=== PATIENT | male | born 1965 | race Caucasian/White ===

== ENCOUNTER 2017-10-16 13:04 | Emergency (ER) | payer MEDICAID ==
[2017-10-16] MEDS ORDERED: Lactated Ringers 1,000 ML IV ONE (14:15)
--- NOTE | 2017-10-16 14:21 | EDM.PDOC ---
ED HPI GENERAL MEDICAL PROBLEM - General Chief Complaint: Abdominal Pain Stated Complaint: LEFT LOWER ABDOMINAL PAIN Time Seen by Provider: 10/16/17 14:05 Source of Information: Reports: Patient, Old Records History Limitations: Reports: No Limitations - History of Present Illness INITIAL COMMENTS - FREE TEXT/NARRATIVE: 52 yo male with a pHx of heavy ETOH abuse and pancreatitis presents with LLQ abdominal pain that is not responding to antibiotics prescribed in the clinic last week for presumed diverticulitis. Reports nearly 50# weight loss in the last approx 1 year even though he his eating at least as much as before. Has not had a fever. No recent scanning of his abdomen. No fever, vomiting, or diarrhea. Hurts to extend the L leg. Onset: Gradual Onset Date: 10/08/17 Duration: Day(s):, Getting Worse Location: Reports: Abdomen (LLQ) Quality: Reports: Ache Severity: Moderate Improves with: Reports: Rest Worsens with: Reports: Movement (desmond of the L leg) Context: Reports: Other (on ATB's for presumed diverticulitis) Associated Symptoms: Reports: Other (Dizzy if he gets up too fast. ? fevers at night only.). Denies: Chest Pain, Cough, Diaphoresis, Fever/Chills, Rash, Shortness of Breath Treatments [employer]: Reports: Other (see below) (On antibiotics from the clinic.) Left Abdomen Pain Score (Numeric/FACES): 4 - Related Data Allergies Allergy/AdvReac Type Severity Reaction Status Date / Time oxycodone Allergy Hives Verified 10/16/17 13:32 Home Meds: Home Meds Pantoprazole [ProTONIX] 40 mg PO DAILY #30 tab.cr 10/20/16 [Rx] Ciprofloxacin HCl [Cipro] 500 mg PO BID 10/16/17 [History] metroNIDAZOLE [Flagyl] 500 mg PO TID 10/16/17 [History] Past Medical History Other HEENT History: c/o sinus issues Other Respiratory History: recent stop smoking no patches on Gastrointestinal History: Reports: GERD, Pancreatitis Other Gastrointestinal History: hx of ulcer, "COLON INFECTION" Other Psychiatric History: etoh abuse Other Dermatologic History: cyst recent R eye - Past Surgical History GI Surgical History: Reports: None Social & Family History - Tobacco Use Smoking Status *Q: Unknown Ever Smoked Years of Tobacco use: 35 Packs/Tins Daily: 1.5 Used Tobacco, but Quit: No Month Tobacco Last Used: 0 Second Hand Smoke Exposure: Yes - Caffeine Use Caffeine Use: Reports: None - Alcohol Use Days Per Week of Alcohol Use: 7 Number of Drinks Per Day: 8 Total Drinks Per Week: 56 - Recreational Drug Use Recreational Drug Use: Yes Drug Use in Last 12 Months: Yes Recreational Drug Type: Reports: Marijuana/Hashish Recreational Drug Use Frequency: Weekly Recreational Drug Last Use: 2 weeks - Living Situation & Occupation Living situation: Reports: , Alone Occupation: Unemployed ED ROS GENERAL - Review of Systems Review Of Systems: See Below Constitutional: Reports: Fever (? nocturnal fevers.). Denies: Diaphoresis, Decreased Appetite HEENT: Reports: No Symptoms Respiratory: Reports: No Symptoms Cardiovascular: Reports: Lightheadedness (with standing up quickly) Endocrine: Reports: Other (weight loss) GI/Abdominal: Reports: Abdominal Pain (LLQ). Denies: Black Stool, Bloody Stool , Constipation, Diarrhea, Decreased Appetite, Distension, Flatus, Hematemesis, Hematochezia, Melena, Nausea, Stool Incontinence, Vomiting : Reports: No Symptoms Musculoskeletal: Reports: No Symptoms Skin: Reports: No Symptoms Neurological: Reports: No Symptoms Psychiatric: Reports: No Symptoms ED EXAM, GI/ABD - Physical Exam Exam: See Below Exam Limited By: No Limitations General Appearance: Alert, WD/WN, No Apparent Distress Eyes: Bilateral: Normal Appearance, EOMI Ears: Normal External Exam, Normal Canal, Hearing Grossly Normal, Normal TMs Nose: Normal Inspection, Normal Mucosa, No Blood Throat/Mouth: Normal Inspection, Normal Lips, Normal Teeth Head: Atraumatic, Normocephalic Neck: Normal Inspection, Supple, Non-Tender Respiratory/Chest: No Respiratory Distress, Lungs Clear, Normal Breath Sounds, No Accessory Muscle Use Cardiovascular: Regular Rate, Rhythm, No Edema GI/Abdominal Exam: Soft, No Distention, Rebound (mild), Tender (LLQ), Abnormal Bowel Sounds (increased). No: Guarding Back Exam: Normal Inspection. No: CVA Tenderness (R), CVA Tenderness (L) Extremities: Normal Inspection, Normal Range of Motion, Non-Tender, No Pedal Edema Neurological: Alert, Oriented, CN II-XII Intact, Normal Cognition, No Motor/ Sensory Deficits Psychiatric: Normal Affect, Normal Mood Skin Exam: Warm, Dry, Intact, Normal Color, No Rash Lymphatic: No Adenopathy Course - Vital Signs Last Recorded V/S: Last Vital Signs Temp 36.2 C 10/16/17 13:22 Pulse 119 H 10/16/17 13:22 Resp 15 10/16/17 13:22 BP 124/86 10/16/17 13:22 Pulse Ox 100 10/16/17 13:22 - Orders/Labs/Meds Orders: Active Orders 24 hr Category Date Time Status Iopamidol [Isovue-300 (61%)] Med 10/16/17 14:31 Active 86 ml IV . DIRECTED PRN Lactated Ringers [Ringers, Lactated] 1,000 ml Med 10/16/17 14:15 Active IV BOLUS Sodium Chloride 0.9% [Normal Saline] 70 ml Med 10/16/17 14:45 Active IV ASDIRECTED Medication Orders Lactated Ringer's (Ringers, Lactated) 1,000 mls @ 1,000 mls/hr IV BOLUS ONE Stop: 10/16/17 15:14 Last Admin: 10/16/17 14:32 Dose: 1,000 mls/hr Sodium Chloride (Normal Saline) 70 mls @ 3 mls/sec IV ASDIRECTED JODIE Stop: 10/16/17 23:00 Last Admin: 10/16/17 14:41 Dose: 3 mls/sec Iopamidol (Isovue-300 (61%)) 86 ml IV . DIRECTED PRN PRN Reason: RADIOLOGY EXAM Stop: 10/17/17 14:32 Last Admin: 10/16/17 14:41 Dose: 86 ml Labs: Laboratory Tests 10/16/17 10/16/17 Range/Units 14:15 14:31 Sodium 136 L (140-148) mmol/L Potassium 3.3 L (3.6-5.2) mmol/L Chloride 99 L (100-108) mmol/L Carbon Dioxide 25 (21-32) mmol/L Anion Gap 15.3 H (5.0-14.0) mmol/L BUN 9 D (7-18) mg/dL Creatinine 0.7 L (0.8-1.3) mg/dL Est Cr Clr Drug Dosing 101.25 mL/min Estimated GFR (MDRD) > 60 (>60) Glucose 102 (74-106) mg/dL Lactic Acid 1.2 (0.4-2.0) mmol/L Calcium 9.0 (8.5-10.1) mg/dL Meds: Medications Generic Name Dose Route Start Last Admin Trade Name Fatmata PRN Reason Stop Dose Admin Lactated Ringer's 1,000 mls @ 1,000 mls/hr 10/16/17 14:15 10/16/17 14:32 Ringers, Lactated IV 10/16/17 15:14 1,000 mls/hr BOLUS ONE Administration Sodium Chloride 70 mls @ 3 mls/sec 10/16/17 14:45 10/16/17 14:41 Normal Saline IV 10/16/17 23:00 3 mls/sec ASDIRECTED JODIE Administration Iopamidol 86 ml 10/16/17 14:31 10/16/17 14:41 Isovue-300 (61%) IV 10/17/17 14:32 86 ml . DIRECTED PRN Administration RADIOLOGY EXAM - Radiology Interpretation Free Text/Narrative:: Abd/pelvis CT with contrast-loculated fluid collections L abdomen, pseudocysts vs abscesses. Some hydronephrosis. Largest measures 10 x [address] Results Date: 10/16/17 CT Results Time: 14:55 Departure - Departure Time of Disposition: 15:30 Disposition: Home, Self-Care 01 Condition: Fair Clinical Impression: Intra-abdominal abscess - Discharge Information Referrals: Jake Auguste PA-C [Primary Care Provider] - Forms: ED Department Discharge - My Orders Last 24 Hours: My Active Orders 10/16/17 14:15 Lactated Ringers [Ringers, Lactated] 1,000 ml IV BOLUS 10/16/17 14:31 Iopamidol [Isovue-300 (61%)] 86 ml IV . DIRECTED PRN 10/16/17 14:45 Sodium Chloride 0.9% [Normal Saline] 70 ml IV ASDIRECTED - Assessment/Plan Last 24 Hours: My Active Orders 10/16/17 14:15 Lactated Ringers [Ringers, Lactated] 1,000 ml IV BOLUS 10/16/17 14:31 Iopamidol [Isovue-300 (61%)] 86 ml IV . DIRECTED PRN 10/16/17 14:45 Sodium Chloride 0.9% [Normal Saline] 70 ml IV ASDIRECTED
[2017-10-16] MEDS ORDERED: Iopamidol 612 MG/ML 100 ML Bottle IV PRN (14:31)
--- NOTE | 2017-10-16 15:01 | CT ---
Abdomen pelvis CT. History: Left lower quadrant pain. Abdominal pain weight loss. Technique: IV and oral contrast were administered followed by axial imaging from the lung bases exten ding through the abdomen and pelvis. Coronal images were reconstructed. Total DLP: 329. Comparison: 17 October 2016. Findings: The patient has a history of pancreatitis. There are several loculated fluid collections in the left flank. The left kidney is displaced slightly anterior by the fluid collection. The largest collection measures approximately 10.0 x 4.9 x 3[address] exam demonstrated findings sugges tive of pancreatitis with induration of the fat on the left side. The fluid collections may reflect p seudocysts. Abscess formation not excluded. Limited evaluation of the lower lung fairchild demonstrates no acute findings. The liver, bladder, spleen are unremarkable. There is no large or small bowel distention. There is no free air. The kidneys are demonstrate excretion of contrast bilaterally. There is mild prominence of the left renal collecting system. The finding is concerning for mild left hydronephrosis. The inflam matory process may be compromising the proximal left ureter. There are no skeletal lesions. Impression: 1. Several loculated fluid collections in the left flank with anterior displacement of the left kidne y. There is evidence of mild hydronephrosis on the left. The proximal one third of the left ureter ma y be partially obstructed due to the organized fluid collections. The fluid collections may reflect p seudocyst formation from chronic pancreatitis. Abscesses of the left flank should also be considered. Clinical correlation recommended.
[2017-10-16 15:19] VITALS: BP 133/78
[2017-10-16] MEDS ORDERED: Lactated Ringers 1,000 ML IV SCH (16:00)
== END 2017-10-16 16:09 | disposition home or self-care (01) ==
LOC: JP.ED 13:04
DX: K65.1 Peritoneal abscess (principal); Z79.899 Other long term (current) drug therapy; Z88.6 Allergy status to analgesic agent
CPT/HCPCS: 36415; 74177; 80048; 83605; 96360; 99284; J7030; J7120; Q9967

== ENCOUNTER 2018-06-07 15:23 | Emergency (ER) | payer MEDICAID ==
[2018-06-07] MEDS ORDERED: Aspirin 81 MG Tab.Chew PO ONE (15:33)
[2018-06-07] MEDS ORDERED: Sodium Chloride 0.9% 10 ML Syringe FLUSH PRN (15:33)
--- NOTE | 2018-06-07 15:39 | EDM.PDOC ---
ED HPI GENERAL MEDICAL PROBLEM - General Chief Complaint: Cardiovascular Problem Stated Complaint: MED[facility] Time Seen by Provider: 06/07/18 15:32 Source of Information: Reports: Patient, EMS, RN Notes Reviewed History Limitations: Reports: No Limitations - History of Present Illness INITIAL COMMENTS - FREE TEXT/NARRATIVE: 53-year-old gentleman presents to emergency department today via EMS services for a syncopal event, states he did have severe pain back of his head yesterday lasted a couple minutes he does have a known history of alcohol abuse and dependence. Was at the liquor store today had lifted a 30 pack after doing this suddenly felt lightheaded staff at the store had him sit down EMS services were called. Upon arrival by EMS services found him very diaphoretic difficult to obtain blood pressure a systolic reading of 50, initial EKG does show concern for ST changes in leads 2 and 3 however he denied any chest pain or shortness of breath, nausea or vomiting. Upon arrival to the emergency department blood pressure had stabilized he was tachycardic but remained asymptomatic denies any chest pain Treatments [employer]: Reports: EKG - Related Data Allergies Allergy/AdvReac Type Severity Reaction Status Date / Time oxycodone Allergy Hives Verified 06/07/18 15:38 Home Meds: Home Meds Pantoprazole [ProTONIX] 40 mg PO DAILY #30 tab.cr 10/20/16 [Rx] Albuterol [Ventolin HFA] 2 puff INH BID 06/07/18 [History] Ibuprofen 400 mg PO DAILY 06/07/18 [History] Tamsulosin [Tamsulosin 24 Hr] 0.4 mg PO DAILY 06/07/18 [History] Past Medical History Other HEENT History: c/o sinus issues Other Respiratory History: recent stop smoking no patches on Gastrointestinal History: Reports: GERD, Pancreatitis Other Gastrointestinal History: hx of ulcer, "COLON INFECTION" Psychiatric History: Reports: Addiction Other Psychiatric History: etoh abuse Other Dermatologic History: cyst recent R eye - Past Surgical History GI Surgical History: Reports: None Social & Family History - Tobacco Use Smoking Status *Q: Former Smoker - Caffeine Use Caffeine Use: Reports: None - Living Situation & Occupation Living situation: Reports: , Alone Occupation: Unemployed ED ROS GENERAL - Review of Systems Review Of Systems: See Below Constitutional: Reports: No Symptoms HEENT: Reports: No Symptoms Respiratory: Reports: No Symptoms Cardiovascular: Reports: Lightheadedness, Syncope GI/Abdominal: Reports: No Symptoms : Reports: No Symptoms Musculoskeletal: Reports: No Symptoms Skin: Reports: No Symptoms Neurological: Reports: Syncope ED EXAM, GENERAL - Physical Exam Exam: See Below Free Text/Narrative:: General: Male, not in any distress, alert and oriented x3 HEENT: head is atraumatic normocephalic, eyes pupils equal round reactive to light, sclera clear no conjunctivitis appreciated. Ears tympanic membranes clear and ocampo landmarks and light reflex are present bilaterally canals are clear. Nose no septal deviation, nares are clear, no blood present. Mouth mucosa is moist and pink no erythema or exudate noted in soft palate, tongue is midline uvula is midline, dentition is poor. Neck: Supple no thyromegaly no tracheal deviation. Nodes: Cervical nodes subclavicular nodes nontender no palpable lymphadenopathy noted. Lungs: clear to auscultation bilaterally with symmetrical respirations, no adventitious noise appreciated. CV: Tachycardic rate and rhythm S1 and S2 appreciated no murmurs rubs or gallops noted. Abdomen: Soft, nontender, no palpable masses or organomegaly appreciated, no distention no guarding bowel sounds are present, . Neuro: Cranial nerves II through XII grossly intact Skin: Warm and dry, intact Extremities: No lower extremity edema appreciated, Course - Vital Signs Last Recorded V/S: Last Vital Signs Temp 97.2 F 06/07/18 15:24 Pulse 109 H 06/07/18 16:50 Resp 18 06/07/18 16:50 BP 110/69 06/07/18 16:50 Pulse Ox 99 06/07/18 16:50 - Orders/Labs/Meds Orders: Active Orders 24 hr Category Date Time Status Cardiac Monitoring [RC] .As Directed Care 06/07/18 15:33 Active EKG Documentation Completion [RC] ASDIRECTED Care 06/07/18 15:34 Active Peripheral IV Care [RC] . DIRECTED Care 06/07/18 15:33 Active Head wo Cont [CT] Stat Exams 06/07/18 15:35 Taken Lactated Ringers [Ringers, Lactated] 1,000 ml Med 06/07/18 15:45 Active IV .BOLUS Sodium Chloride 0.9% [Saline Flush] Med 07/20/18 15:33 Active 10 ml FLUSH ASDIRECTED PRN Peripheral IV Insertion Adult [OM.PC] Stat Oth 06/07/18 15:33 Ordered EKG 12 Lead [EK] Stat Ther 06/07/18 15:34 Ordered Medication Orders Lactated Ringer's (Ringers, Lactated) 1,000 mls @ 999 mls/hr IV .BOLUS JODIE Last Admin: 06/07/18 16:00 Dose: 999 mls/hr Sodium Chloride (Saline Flush) 10 ml FLUSH ASDIRECTED PRN PRN Reason: Keep Vein Open Labs: Laboratory Tests 06/07/18 06/07/18 06/07/18 Range/Units 15:33 15:33 15:33 WBC 10.3 (4.5-11.0) K/uL RBC 4.45 (4.30-5.90) M/uL Hgb 14.7 D (12.0-15.0) g/dL Hct 40.8 (40.0-54.0) % MCV 92 (80-98) fL MCH 33 H (27-31) pg MCHC 36 (32-36) % Plt Count 213 (150-400) K/uL Neut % (Auto) 63 (36-66) % Lymph % (Auto) 24 (24-44) % [place] % (Auto) 12 H (2-6) % Eos % (Auto) 0 L (2-4) % Baso % (Auto) 0 (0-1) % D-Dimer, Quantitative 134 (0.0-400.0) ng/mL Sodium 133 L (140-148) mmol/L Potassium 3.2 L (3.6-5.2) mmol/L Chloride 96 L (100-108) mmol/L Carbon Dioxide 20 L (21-32) mmol/L Anion Gap 20.2 H (5.0-14.0) mmol/L BUN 15 D (7-18) mg/dL Creatinine 1.2 D (0.8-1.3) mg/dL Est Cr Clr Drug Dosing 60.74 mL/min Estimated GFR (MDRD) > 60 (>60) Glucose 177 H (74-106) mg/dL Calcium 9.3 (8.5-10.1) mg/dL Total Bilirubin 1.0 D (0.2-1.0) mg/dL AST 31 D (15-37) U/L ALT 34 D (12-78) U/L Alkaline Phosphatase 114 (46-116) U/L CK-MB (CK-2) 1.6 (0-3.6) mg/mL Troponin I < 0.017 (0.000-0.056) ng/mL Total Protein 7.7 (6.4-8.2) g/dL Albumin 4.1 (3.4-5.0) g/dL Globulin 3.6 H (2.3-3.5) g/dL Albumin/Globulin Ratio 1.1 L (1.2-2.2) Ethyl Alcohol mg/dL 06/07/18 Range/Units 15:33 WBC (4.5-11.0) K/uL RBC (4.30-5.90) M/uL Hgb (12.0-15.0) g/dL Hct (40.0-54.0) % MCV (80-98) fL MCH (27-31) pg MCHC (32-36) % Plt Count (150-400) K/uL Neut % (Auto) (36-66) % Lymph % (Auto) (24-44) % [place] % (Auto) (2-6) % Eos % (Auto) (2-4) % Baso % (Auto) (0-1) % D-Dimer, Quantitative (0.0-400.0) ng/mL Sodium (140-148) mmol/L Potassium (3.6-5.2) mmol/L Chloride (100-108) mmol/L Carbon Dioxide (21-32) mmol/L Anion Gap (5.0-14.0) mmol/L BUN (7-18) mg/dL Creatinine (0.8-1.3) mg/dL Est Cr Clr Drug Dosing mL/min Estimated GFR (MDRD) (>60) Glucose (74-106) mg/dL Calcium (8.5-10.1) mg/dL Total Bilirubin (0.2-1.0) mg/dL AST (15-37) U/L ALT (12-78) U/L Alkaline Phosphatase (46-116) U/L CK-MB (CK-2) (0-3.6) mg/mL Troponin I (0.000-0.056) ng/mL Total Protein (6.4-8.2) g/dL Albumin (3.4-5.0) g/dL Globulin (2.3-3.5) g/dL Albumin/Globulin Ratio (1.2-2.2) Ethyl Alcohol < 3 mg/dL Meds: Medications Generic Name Dose Route Start Last Admin Trade Name Freq PRN Reason Stop Dose Admin Lactated Ringer's 1,000 mls @ 999 mls/hr 06/07/18 15:45 06/07/18 16:00 Ringers, Lactated IV 999 mls/hr .BOLUS JODIE Administration Sodium Chloride 10 ml 06/07/18 15:33 Saline Flush FLUSH ASDIRECTED PRN Keep Vein Open Discontinued Medications Generic Name Dose Route Start Last Admin Trade Name Freq PRN Reason Stop Dose Admin Aspirin 324 mg 06/07/18 15:33 06/07/18 15:56 Aspirin PO 06/07/18 15:34 324 mg ONETIME ONE Administration Departure - Departure Time of Disposition: 17:13 Disposition: Home, Self-Care 01 Condition: Good Clinical Impression: Syncope, near Referrals: PCP,None [Primary Care Provider] - Forms: ED Department Discharge Additional Instructions: Please followup with your primary care provider in 3-5 days if not better, please call return to the emergency department with worsening of symptoms. - My Orders Last 24 Hours: My Active Orders 06/07/18 15:33 Cardiac Monitoring [RC] .As Directed Peripheral IV Care [RC] . DIRECTED Sodium Chloride 0.9% [Saline Flush] 10 ml FLUSH ASDIRECTED PRN Peripheral IV Insertion Adult [OM.PC] Stat 06/07/18 15:34 EKG Documentation Completion [RC] ASDIRECTED EKG 12 Lead [EK] Stat 06/07/18 15:35 Head wo Cont [CT] Stat 06/07/18 15:45 Lactated Ringers [Ringers, Lactated] 1,000 ml IV .BOLUS - Assessment/Plan Last 24 Hours: My Active Orders 06/07/18 15:33 Cardiac Monitoring [RC] .As Directed Peripheral IV Care [RC] . DIRECTED Sodium Chloride 0.9% [Saline Flush] 10 ml FLUSH ASDIRECTED PRN Peripheral IV Insertion Adult [OM.PC] Stat 06/07/18 15:34 EKG Documentation Completion [RC] ASDIRECTED EKG 12 Lead [EK] Stat 06/07/18 15:35 Head wo Cont [CT] Stat 06/07/18 15:45 Lactated Ringers [Ringers, Lactated] 1,000 ml IV .BOLUS Plan: Assessment Acuity = acute Site and laterality = syncopal event complicated in a gentleman known history of alcohol abuse and dependence Etiology = probably vasovagal Manifestations = none Location of injury = Home Lab values = CBC unremarkable, potassium low at 3.2 consistent hypokalemia, d- dimer is negative, troponin CK-MB both negative EKG demonstrates a sinus rhythm he does have Q waves in lead [address] changes in 2 however this is similar to EKG in 2016 atrial enlargement is appreciated in lead 2, CT scan of the head shows no acute process Plan He was provided aspirin and 1 L of fluids in the ED he remained asymptomatic his tachycardia did improve with fluids was able to ambulate around emergency department without any symptoms, have him follow-up with primary care in 3-5 days if no improvement This note was dictated using [employer] voice recognition software please call with any questions on syntax or grammar.
[2018-06-07] MEDS ORDERED: Lactated Ringers 1,000 ML IV SCH (15:45)
[2018-06-07 16:59] VITALS: BP 110/69
== END 2018-06-07 17:34 | disposition home or self-care (01) ==
LOC: JP.ED 15:23
DX: R55 Syncope and collapse (principal); K21.9 Gastro-esophageal reflux disease without esophagitis; Z79.899 Other long term (current) drug therapy; Z88.6 Allergy status to analgesic agent
CPT/HCPCS: 36415; 70450; 80053; 82553; 84484; 85025; 85379; 93005; 96360; 99285; A9270; G0480; J7120

== ENCOUNTER 2019-03-01 16:12 | Emergency (ER) | payer MEDICAID ==
[2019-03-01 16:25] VITALS: BP 113/75
[2019-03-01] MEDS ORDERED: Sodium Chloride 0.9% 10 ML Syringe FLUSH PRN (16:44)
[2019-03-01] MEDS ORDERED: MVI, Adult with Vitamin K 10 ML, Thiamine 200 MG, Folic Acid 1 MG, Magnesium Sulfate 2 ... IV ONE ×5 (16:45)
--- NOTE | 2019-03-01 16:48 | EDM.PDOC ---
ED HPI GENERAL MEDICAL PROBLEM - General Chief Complaint: General Stated Complaint: jaundiced Time Seen by Provider: 03/01/19 16:35 Source of Information: Reports: Patient, Family, RN Notes Reviewed History Limitations: Reports: No Limitations - History of Present Illness INITIAL COMMENTS - FREE TEXT/NARRATIVE: 54-year-old gentleman presents to the emergency department today for yellow skin , he knows he has a drinking problem he would like to see how bad things are he' s had 6 beers today total he is brought in by family member who also concerned about him he does not want any treatment at this time, would just like some fluids and would like to go home because he believes he is dehydrated - Related Data Allergies Allergy/AdvReac Type Severity Reaction Status Date / Time oxycodone Allergy Hives Verified 03/01/19 16:31 Home Meds: Home Meds Pantoprazole [ProTONIX] 40 mg PO DAILY #30 tab.cr 10/20/16 [Rx] Albuterol [Ventolin HFA] 2 puff INH BID 06/07/18 [History] Ibuprofen 400 mg PO DAILY 06/07/18 [History] Tamsulosin [Tamsulosin 24 Hr] 0.4 mg PO DAILY 06/07/18 [History] Past Medical History Other HEENT History: c/o sinus issues Respiratory History: Reports: COPD Other Respiratory History: recent stop smoking no patches on Gastrointestinal History: Reports: GERD, Jaundice, Pancreatitis Other Gastrointestinal History: hx of ulcer, "COLON INFECTION" Genitourinary History: Reports: BPH Musculoskeletal History: Reports: Fracture, Other (See Below) Other Musculoskeletal History: complete tear of right and left rotator cuff Psychiatric History: Reports: Addiction Other Psychiatric History: etoh abuse Other Dermatologic History: cyst recent R eye - Past Surgical History GI Surgical History: Reports: None Musculoskeletal Surgical History: Reports: Shoulder Surgery Social & Family History - Tobacco Use Smoking Status *Q: Current Every Day Smoker Years of Tobacco use: 1 Packs/Tins Daily: 30 - Caffeine Use Caffeine Use: Reports: Tea - Alcohol Use Days Per Week of Alcohol Use: 7 Number of Drinks Per Day: 12 Total Drinks Per Week: 84 - Recreational Drug Use Recreational Drug Use: Yes Recreational Drug Type: Reports: Marijuana/Hashish Recreational Drug Use Frequency: Daily - Living Situation & Occupation Living situation: Reports: , Alone Occupation: Unemployed ED ROS GENERAL - Review of Systems Review Of Systems: See Below Constitutional: Reports: No Symptoms HEENT: Reports: No Symptoms Respiratory: Reports: No Symptoms Cardiovascular: Reports: No Symptoms GI/Abdominal: Reports: No Symptoms : Reports: No Symptoms Musculoskeletal: Reports: No Symptoms Skin: Reports: Change in Color Neurological: Reports: No Symptoms Psychiatric: Reports: Cravings ED EXAM, GENERAL - Physical Exam Exam: See Below Exam Limited By: Intoxication General Appearance: Alert, WD/WN, No Apparent Distress Eye Exam: Bilateral Eye: PERRL, Other (Scleral icterus) Neck: Normal Inspection, Supple, Non-Tender, Full Range of Motion Respiratory/Chest: No Respiratory Distress, Lungs Clear, Normal Breath Sounds, No Accessory Muscle Use, Chest Non-Tender Cardiovascular: Regular Rate, Rhythm, No Murmur GI/Abdominal: Soft, Non-Tender Skin Exam: Other (Yellow in color) Course - Vital Signs Last Recorded V/S: Last Vital Signs Temp 97.8 F 03/01/19 16:23 Pulse 126 H 03/01/19 16:23 Resp 16 03/01/19 16:23 BP 113/75 03/01/19 16:23 Pulse Ox 98 03/01/19 16:23 - Orders/Labs/Meds Orders: Active Orders 24 hr Category Date Time Status Peripheral IV Care [RC] . DIRECTED Care 03/01/19 16:45 Active MVI, Adult with Vitamin K [Infuvite Adult] 10 ml Med 03/01/19 16:45 Active Thiamine [Vitamin B-1] 200 mg Folic Acid 1 mg Magnesium Sulfate [Magnesium Sulfate 50%] 2 gm Dextrose 5%-Lactated Ringers 1,000 ml IV ONETIME Sodium Chloride 0.9% [Saline Flush] Med 03/01/19 16:44 Active 10 ml FLUSH ASDIRECTED PRN ED Alcohol and Substance Abuse Reflex [OM.PC] Click to Oth 03/01/19 16:44 Ordered Edit Peripheral IV Insertion Adult [OM.PC] Stat Oth 03/01/19 16:44 Ordered Medication Orders Multivitamins/Minerals 10 ml/Thiamine HCl 200 mg/ Folic Acid 1 mg/ Magnesium Sulfate 2 gm/ Dextrose/Lactated Ringer' s 1,016.2 mls @ 500 mls/hr IV ONETIME ONE Stop: 03/01/19 18:46 Last Admin: 03/01/19 17:07 Dose: 500 mls/hr Sodium Chloride (Saline Flush) 10 ml FLUSH ASDIRECTED PRN PRN Reason: Keep Vein Open Last Admin: 03/01/19 17:08 Dose: 10 ml Labs: Laboratory Tests 03/01/19 03/01/19 03/01/19 Range/Units 16:58 16:58 16:58 WBC 5.7 (4.5-11.0) K/uL RBC 2.78 L (4.30-5.90) M/uL Hgb 10.3 L D (12.0-15.0) g/dL Hct 28.0 L (40.0-54.0) % MCV 101 H (80-98) fL MCH 37 H (27-31) pg MCHC 37 H (32-36) % Plt Count 170 (150-400) K/uL Neut % (Auto) 71 H (36-66) % Lymph % (Auto) 19 L (24-44) % Cannon % (Auto) 11 H (2-6) % Eos % (Auto) 0 L (2-4) % Baso % (Auto) 0 (0-1) % PT 11.8 (9.5-12.0) sec INR 1.08 (0.80-1.20) Sodium 115 L* (140-148) mmol/L Potassium 3.3 L (3.6-5.2) mmol/L Chloride 80 L (100-108) mmol/L Carbon Dioxide 23 (21-32) mmol/L Anion Gap 15.3 H (5.0-14.0) mmol/L BUN 6 L D (7-18) mg/dL Creatinine 0.5 L D (0.8-1.3) mg/dL Est Cr Clr Drug Dosing 128.58 mL/min Estimated GFR (MDRD) > 60 (>60) Glucose 127 H (74-106) mg/dL Lactic Acid (0.4-2.0) mmol/L Calcium 8.1 L (8.5-10.1) mg/dL Total Bilirubin 8.5 H D (0.2-1.0) mg/dL AST 245 H D (15-37) U/L ALT 83 H (12-78) U/L Alkaline Phosphatase 776 H D (46-116) U/L Ammonia (11-32) mmol/L Total Protein 5.8 L (6.4-8.2) g/dL Albumin 2.4 L (3.4-5.0) g/dL Globulin 3.4 (2.3-3.5) g/dL Albumin/Globulin Ratio 0.7 L (1.2-2.2) Lipase 237 (73-393) U/L Urine Color Urine Appearance Urine pH (4.5-8.0) Ur Specific [place] (1.008-1.030) Urine Protein (NEGATIVE) mg/dL Urine Glucose (UA) (NEGATIVE) mg/dL Urine Ketones (NEGATIVE) mg/dL Urine Occult Blood (NEGATIVE) Urine Nitrite (NEGAITVE) Urine Bilirubin (NEGATIVE) Urine Urobilinogen (NORMAL) mg/dL Ur Leukocyte Esterase (NEGATIVE) Urine RBC (0-5) Urine WBC (0-5) Ur Epithelial Cells Amorphous Sediment Urine Bacteria Urine Mucus Urine Opiates Screen (NEGATIVE) Ur Oxycodone Screen (NEGATIVE) Urine Methadone Screen (NEGATIVE) Ur Propoxyphene Screen (NEGATIVE) Ur Barbiturates Screen (NEGATIVE) Ur Tricyclics Screen (NEGATIVE) Ur Phencyclidine Scrn (NEGATIVE) Ur Amphetamine Screen (NEGATIVE) U Methamphetamines Scrn (NEGATIVE) Urine MDMA Screen (NEGATIVE) U Benzodiazepines Scrn (NEGATIVE) U Cocaine Metab Screen (NEGATIVE) U Marijuana (THC) Screen (NEGATIVE) Ethyl Alcohol mg/dL 03/01/19 03/01/19 03/01/19 Range/Units 16:58 16:58 16:58 WBC (4.5-11.0) K/uL RBC (4.30-5.90) M/uL Hgb (12.0-15.0) g/dL Hct (40.0-54.0) % MCV (80-98) fL MCH (27-31) pg MCHC (32-36) % Plt Count (150-400) K/uL Neut % (Auto) (36-66) % Lymph % (Auto) (24-44) % Cannon % (Auto) (2-6) % Eos % (Auto) (2-4) % Baso % (Auto) (0-1) % PT (9.5-12.0) sec INR (0.80-1.20) Sodium (140-148) mmol/L Potassium (3.6-5.2) mmol/L Chloride (100-108) mmol/L Carbon Dioxide (21-32) mmol/L Anion Gap (5.0-14.0) mmol/L BUN (7-18) mg/dL Creatinine (0.8-1.3) mg/dL Est Cr Clr Drug Dosing mL/min Estimated GFR (MDRD) (>60) Glucose (74-106) mg/dL Lactic Acid 2.0 (0.4-2.0) mmol/L Calcium (8.5-10.1) mg/dL Total Bilirubin (0.2-1.0) mg/dL AST (15-37) U/L ALT (12-78) U/L Alkaline Phosphatase (46-116) U/L Ammonia 29 (11-32) mmol/L Total Protein (6.4-8.2) g/dL Albumin (3.4-5.0) g/dL Globulin (2.3-3.5) g/dL Albumin/Globulin Ratio (1.2-2.2) Lipase (73-393) U/L Urine Color Urine Appearance Urine pH (4.5-8.0) Ur Specific [place] (1.008-1.030) Urine Protein (NEGATIVE) mg/dL Urine Glucose (UA) (NEGATIVE) mg/dL Urine Ketones (NEGATIVE) mg/dL Urine Occult Blood (NEGATIVE) Urine Nitrite (NEGAITVE) Urine Bilirubin (NEGATIVE) Urine Urobilinogen (NORMAL) mg/dL Ur Leukocyte Esterase (NEGATIVE) Urine RBC (0-5) Urine WBC (0-5) Ur Epithelial Cells Amorphous Sediment Urine Bacteria Urine Mucus Urine Opiates Screen (NEGATIVE) Ur Oxycodone Screen (NEGATIVE) Urine Methadone Screen (NEGATIVE) Ur Propoxyphene Screen (NEGATIVE) Ur Barbiturates Screen (NEGATIVE) Ur Tricyclics Screen (NEGATIVE) Ur Phencyclidine Scrn (NEGATIVE) Ur Amphetamine Screen (NEGATIVE) U Methamphetamines Scrn (NEGATIVE) Urine MDMA Screen (NEGATIVE) U Benzodiazepines Scrn (NEGATIVE) U Cocaine Metab Screen (NEGATIVE) U Marijuana (THC) Screen (NEGATIVE) Ethyl Alcohol 256 mg/dL 03/01/19 03/01/19 Range/Units 17:00 17:00 WBC (4.5-11.0) K/uL RBC (4.30-5.90) M/uL Hgb (12.0-15.0) g/dL Hct (40.0-54.0) % MCV (80-98) fL MCH (27-31) pg MCHC (32-36) % Plt Count (150-400) K/uL Neut % (Auto) (36-66) % Lymph % (Auto) (24-44) % Cannon % (Auto) (2-6) % Eos % (Auto) (2-4) % Baso % (Auto) (0-1) % PT (9.5-12.0) sec INR (0.80-1.20) Sodium (140-148) mmol/L Potassium (3.6-5.2) mmol/L Chloride (100-108) mmol/L Carbon Dioxide (21-32) mmol/L Anion Gap (5.0-14.0) mmol/L BUN (7-18) mg/dL Creatinine (0.8-1.3) mg/dL Est Cr Clr Drug Dosing mL/min Estimated GFR (MDRD) (>60) Glucose (74-106) mg/dL Lactic Acid (0.4-2.0) mmol/L Calcium (8.5-10.1) mg/dL Total Bilirubin (0.2-1.0) mg/dL AST (15-37) U/L ALT (12-78) U/L Alkaline Phosphatase (46-116) U/L Ammonia (11-32) mmol/L Total Protein (6.4-8.2) g/dL Albumin (3.4-5.0) g/dL Globulin (2.3-3.5) g/dL Albumin/Globulin Ratio (1.2-2.2) Lipase (73-393) U/L Urine Color Brown Urine Appearance Clear Urine pH 6.0 (4.5-8.0) Ur Specific [place] 1.020 (1.008-1.030) Urine Protein Negative (NEGATIVE) mg/dL Urine Glucose (UA) Normal (NEGATIVE) mg/dL Urine Ketones Negative (NEGATIVE) mg/dL Urine Occult Blood Negative (NEGATIVE) Urine Nitrite Negative (NEGAITVE) Urine Bilirubin Large (NEGATIVE) Urine Urobilinogen Normal (NORMAL) mg/dL Ur Leukocyte Esterase Negative (NEGATIVE) Urine RBC 0-5 (0-5) Urine WBC 0-5 (0-5) Ur Epithelial Cells Moderate Amorphous Sediment Not seen Urine Bacteria Few Urine Mucus Not seen Urine Opiates Screen Negative (NEGATIVE) Ur Oxycodone Screen Negative (NEGATIVE) Urine Methadone Screen Negative (NEGATIVE) Ur Propoxyphene Screen Negative (NEGATIVE) Ur Barbiturates Screen Negative (NEGATIVE) Ur Tricyclics Screen Negative (NEGATIVE) Ur Phencyclidine Scrn Negative (NEGATIVE) Ur Amphetamine Screen Negative (NEGATIVE) U Methamphetamines Scrn Negative (NEGATIVE) Urine MDMA Screen Negative (NEGATIVE) U Benzodiazepines Scrn Negative (NEGATIVE) U Cocaine Metab Screen Negative (NEGATIVE) U Marijuana (THC) Screen Presumptive positive H (NEGATIVE) Ethyl Alcohol mg/dL Meds: Medications Generic Name Dose Route Start Last Admin Trade Name Freq PRN Reason Stop Dose Admin Multivitamins/Minerals 10 ml/ 1,016.2 mls @ 500 mls/hr 03/01/19 16:45 17:07 Thiamine HCl 200 mg/ Folic IV 03/01/19 18:46 500 mls/hr Acid 1 mg/ Magnesium Sulfate 2 ONETIME ONE Administration gm/ Dextrose/Lactated Ringer' s Sodium Chloride 10 ml 03/01/19 16:44 03/01/19 17:08 Saline Flush FLUSH 10 ml ASDIRECTED PRN Administration Keep Vein Open Departure - Departure Time of Disposition: 18:20 Disposition: Home, Self-Care 01 Condition: Poor Clinical Impression: Chronic alcohol abuse Alcoholic hepatitis Qualifiers: Ascites presence: unspecified Qualified Code(s): K70.10 - Alcoholic hepatitis without ascites - Discharge Information Referrals: Carmine Anderson MD [Primary Care Provider] - Forms: ED Department Discharge Additional Instructions: Recommend stop using alcohol recommend alcohol treatment program please return to the emergency department with worsening of symptoms - My Orders Last 24 Hours: My Active Orders 03/01/19 16:44 Sodium Chloride 0.9% [Saline Flush] 10 ml FLUSH ASDIRECTED PRN ED Alcohol and Substance Abuse Reflex [OM.PC] Click to Edit Peripheral IV Insertion Adult [OM.PC] Stat 03/01/19 16:45 Peripheral IV Care [RC] . DIRECTED MVI, Adult with Vitamin K [Infuvite Adult] 10 ml Thiamine [Vitamin B-1] 200 mg Folic Acid 1 mg Magnesium Sulfate [Magnesium Sulfate 50%] 2 gm Dextrose 5%- Lactated Ringers 1,000 ml IV ONETIME - Assessment/Plan Last 24 Hours: My Active Orders 03/01/19 16:44 Sodium Chloride 0.9% [Saline Flush] 10 ml FLUSH ASDIRECTED PRN ED Alcohol and Substance Abuse Reflex [OM.PC] Click to Edit Peripheral IV Insertion Adult [OM.PC] Stat 03/01/19 16:45 Peripheral IV Care [RC] . DIRECTED MVI, Adult with Vitamin K [Infuvite Adult] 10 ml Thiamine [Vitamin B-1] 200 mg Folic Acid 1 mg Magnesium Sulfate [Magnesium Sulfate 50%] 2 gm Dextrose 5%- Lactated Ringers 1,000 ml IV ONETIME Plan: Assessment Acuity = acute Site and laterality = alcoholic hepatitis with current intoxication Etiology = EtOH Manifestations = jaundice beginning of end-stage liver disease Location of injury = Home Lab values = hemoglobin low at 10.3 consistent with macro chromic anemia sodium markedly low 1:15 consistent with severe hyponatremia chronic potassium low at 2.3 consistent hypokalemia total bilirubin elevated 8.5 consistent hyperbilirubinemia AST at 245 ALTs at 83 consistent elevated liver enzymes alkaline phosphatase elevated 776 albumin low at 2.[address]emia your direction positive for cannabis alcohol was 256 Plan I spent a long time counseling him approximately 20 minutes on his use of alcohol he adamantly does not want to go to treatment he believes he can stop his alcohol consumption on his own therefore he is going to go home I asked repeatedly if we could seek treatment for him and his alcoholism he declined, he stated he would return if he had difficulty with alcohol withdrawal This note was dictated using [employer] voice recognition software please call with any questions on syntax or grammar.
== END 2019-03-01 19:13 | disposition home or self-care (01) ==
LOC: JP.ED 16:12
DX: K70.10 Alcoholic hepatitis without ascites (principal); J44.9 Chronic obstructive pulmonary disease, unspecified; F17.210 Nicotine dependence, cigarettes, uncomplicated; F10.129 Alcohol abuse with intoxication, unspecified; Z88.6 Allergy status to analgesic agent; Z79.899 Other long term (current) drug therapy; Y90.8 Blood alcohol level of 240 mg/100 ml or more
CPT/HCPCS: 36415; 80053; 80305; 81001; 82140; 83605; 83690; 85025; 85610; 96365; 96366; 99283; G0480; J3411; J3475; J7042; J3490

== ENCOUNTER 2021-09-16 20:20 | Inpatient (IN) | payer MEDICAID ==
[2021-09-16] MEDS ORDERED: Adenosine 6 MG/2 ML SDV ONE (20:21)
[2021-09-16] MEDS ORDERED: Adenosine 6 MG/2 ML SDV IVPUSH ONE (20:21)
[2021-09-16] MEDS ORDERED: Sodium Chloride 0.9% 1,000 ML IV SCH ×2 (20:30→22:00)
--- NOTE | 2021-09-16 20:30 | EDM.PDOC ---
ED HPI GENERAL MEDICAL PROBLEM - General Chief Complaint: General Stated Complaint: MEDICAL VIA AGATE Time Seen by Provider: 09/16/21 20:20 Source of Information: Reports: Patient, EMS History Limitations: Reports: No Limitations - History of Present Illness INITIAL COMMENTS - FREE TEXT/NARRATIVE: Is a 56-year-old male presenting to the ED via [facility] for evaluation of repeated falls, generalized weakness, emaciation, and alcoholism. The patient reportedly has been drinking beer beer and liquor in significant quantities over the last several weeks and decided he was going to stop 5 days ago. He has not had much of an appetite or been drinking any fluids since then. He has had repeated falls and today EMS was called. He denies any loss of consciousness or hitting his head. He does look emaciated. He is quite tachycardic with a heart rate of 160 and tachypneic with respiratory rate of 28. Denies any fever or chills. He denies any ingestion of methanol or ethylene glycol. He has been taking aspirin, ibuprofen, and Flomax. EMS did report that the patient reported having some pink diarrhea and they felt that his emesis was a little pink as well but he denies any tarry or black stools. Patient does have a long history of alcohol abuse which raises concern for variceal bleeding as a cause of his generalized weakness, pallor, and recurring falls. - Related Data Allergies Allergy/AdvReac Type Severity Reaction Status Date / Time oxycodone Allergy Hives Verified 03/01/19 16:31 Home Meds: Home Meds Pantoprazole [ProTONIX] 40 mg PO DAILY #30 tab.cr 10/20/16 [Rx] Albuterol [Ventolin HFA] 2 puff INH BID 06/07/18 [History] Ibuprofen 400 mg PO DAILY 06/07/18 [History] Tamsulosin [Tamsulosin 24 Hr] 0.4 mg PO DAILY 06/07/18 [History] Past Medical History Other HEENT History: c/o sinus issues Respiratory History: Reports: COPD Other Respiratory History: recent stop smoking no patches on Gastrointestinal History: Reports: GERD, Jaundice, Pancreatitis Other Gastrointestinal History: hx of ulcer, "COLON INFECTION" Genitourinary History: Reports: BPH Musculoskeletal History: Reports: Fracture, Other (See Below) Other Musculoskeletal History: complete tear of right and left rotator cuff Psychiatric History: Reports: Addiction Other Psychiatric History: etoh abuse Other Dermatologic History: cyst recent R eye - Past Surgical History GI Surgical History: Reports: None Musculoskeletal Surgical History: Reports: Shoulder Surgery Social & Family History - Caffeine Use Caffeine Use: Reports: Tea - Living Situation & Occupation Living situation: Reports: , Alone Occupation: Unemployed ED ROS GENERAL - Review of Systems Review Of Systems: See Below Constitutional: Reports: Malaise, Weakness, Fatigue, Decreased Appetite HEENT: Reports: No Symptoms Respiratory: Reports: Shortness of Breath, Cough Cardiovascular: Reports: Palpitations Endocrine: Reports: Fatigue, High Glucose GI/Abdominal: Reports: No Symptoms, Abdominal Pain, Nausea, Vomiting : Reports: No Symptoms Musculoskeletal: Reports: No Symptoms Skin: Reports: No Symptoms Neurological: Reports: Difficulty Walking (Repeated falls), Weakness (Generalized weakness) Psychiatric: Reports: Anxiety Hematologic/Lymphatic: Reports: No Symptoms Immunologic: Reports: No Symptoms ED EXAM, GENERAL - Physical Exam Exam: See Below Exam Limited By: No Limitations General Appearance: Alert, Anxious, Moderate Distress, Cachetic Eye Exam: Bilateral Eye: EOMI, PERRL Throat/Mouth: Normal Voice, No Airway Compromise, Other (Dry mucous membranes) Head: Atraumatic, Normocephalic Neck: Normal Inspection, Supple. No: Lymphadenopathy (R), Lymphadenopathy (L) Respiratory/Chest: No Respiratory Distress, No Accessory Muscle Use, Rhonchi (Scattered rhonchi bilaterally), Other (Tachypnea) Cardiovascular: Normal Peripheral Pulses, Regular Rate, Rhythm, No Murmur, Tachycardia Peripheral Pulses: 2+: Radial (L), Radial (R), Posterior Tibial (L), Posterior Tibial (R) GI/Abdominal: Soft, Non-Tender, Abnormal Bowel Sounds (Diminished bowel sounds) Extremities: Normal Inspection Neurological: Alert, Oriented, Normal Cognition, No Motor/Sensory Deficits Psychiatric: Normal Affect, Anxious Skin Exam: Pallor #1 Interpretation EKG Date: 09/16/21 Time: 20:17 Rhythm: NSR [place]: LAD-Left [place] Deviation P-Wave: Present QRS: Normal ST-T: Normal QT: Prolonged Comparison: No Change Course - Vital Signs Last Recorded V/S: Last Vital Signs Temp 37.4 C 09/19/21 18:00 Pulse 116 H 09/19/21 18:00 Resp 19 09/19/21 18:00 BP 113/71 09/19/21 18:00 Pulse Ox 99 09/19/21 18:00 - Orders/Labs/Meds Orders: Medication Orders Acetaminophen (Acetaminophen 325 Mg Tab) 650 mg PO Q4H PRN PRN Reason: Pain (Mild 1-3)/fever Albuterol (Albuterol 0.083% 2.5 Mg/3 Ml Neb Soln) 2.5 mg NEB Q4H PRN PRN Reason: Dyspnea Last Admin: 09/17/21 19:39 Dose: 2.5 mg Documented by: HAYDEE Albuterol (Albuterol 8 Gm Inhaler) 0 gm INH BIDRT [facility] Admin: 09/19/21 08:08 Dose: 2 inh Documented by: Admin: 09/18/21 20:12 Dose: 2 inh Documented by: Admin: 09/18/21 09:10 Dose: 1 inh Documented by: HAYDEE Albuterol/Ipratropium (Albuterol/Ipratropium 3.0-0.5 Mg/3 Ml Neb Soln) 3 ml NEB QIDRT [facility] Admin: 09/19/21 14:59 Dose: 3 ml Documented by: Admin: 09/19/21 10:49 Dose: 3 ml Documented by: Admin: 09/19/21 07:08 Dose: 3 ml Documented by: Admin: 09/18/21 20:01 Dose: 3 ml Documented by: Admin: 09/18/21 14:21 Dose: 3 ml Documented by: Admin: 09/18/21 10:24 Dose: 3 ml Documented by: Admin: 09/18/21 07:00 Dose: 3 ml Documented by: Admin: 09/17/21 21:41 Dose: 3 ml Documented by: QUITA Cyanocobalamin (Cyanocobalamin (Vitamin B12) 1,000 Mcg Tab) 1,000 mcg PO DAILY [facility] Admin: 09/19/21 10:28 Dose: 1,000 mcg Documented by: WYATT Folic Acid (Folic Acid 1 Mg Tab) 1 mg PO DAILY [facility] Admin: 09/19/21 08:12 Dose: 1 mg Documented by: Admin: 09/18/21 09:11 Dose: 1 mg Documented by: Admin: 09/17/21 18:01 Dose: 1 mg Documented by: HAYDEE Metronidazole 500 mg/ Premix 100 mls @ 100 mls/hr IV Q8H [facility] Last Admin: 09/19/21 17:30 Dose: 100 mls/hr Documented by: Infusion: 09/19/21 11:01 Dose: 100 mls/hr Documented by: Admin: 09/19/21 10:01 Dose: 100 mls/hr Documented by: Infusion: 09/19/21 03:20 Dose: 100 mls/hr Documented by: Admin: 09/19/21 02:20 Dose: 100 mls/hr Documented by: Infusion: 09/18/21 18:04 Dose: 100 mls/hr Documented by: Admin: 09/18/21 17:04 Dose: 100 mls/hr Documented by: Infusion: 09/18/21 11:40 Dose: 100 mls/hr Documented by: Admin: 09/18/21 10:40 Dose: 100 mls/hr Documented by: Infusion: 09/18/21 02:52 Dose: 100 mls/hr Documented by: Admin: 09/18/21 01:52 Dose: 100 mls/hr Documented by: Infusion: 09/17/21 20:19 Dose: 100 mls/hr Documented by: Admin: 09/17/21 19:19 Dose: 100 mls/hr Documented by: TAI Ceftriaxone Sodium 1 gm/ (Sodium Chloride) 50 mls @ 100 mls/hr IV Q24H JODIE Last Admin: 09/19/21 14:33 Dose: 100 mls/hr Documented by: Admin: 09/18/21 14:57 Dose: 100 mls/hr Documented by: HAYDEE Lorazepam (Lorazepam 2 Mg/Ml Sdv) 0 mg IV ASDIRECTED JODIE; Protocol Lorazepam (Lorazepam 1 Mg Tab) 0 mg PO ASDIRECTED JODIE; Protocol Last Admin: 09/19/21 16:33 Dose: 1 mg Documented by: Admin: 09/19/21 08:11 Dose: 1 mg Documented by: Admin: 09/19/21 02:43 Dose: 1 mg Documented by: Admin: 09/18/21 22:17 Dose: 1 mg Documented by: Admin: 09/18/21 19:51 Dose: 1 mg Documented by: Admin: 09/18/21 17:33 Dose: 1 mg Documented by: Admin: 09/18/21 15:28 Dose: 1 mg Documented by: Admin: 09/18/21 13:27 Dose: 1 mg Documented by: Admin: 09/17/21 21:40 Dose: 1 mg Documented by: QUITA Magnesium Oxide (Magnesium Oxide 400 Mg Tab) 400 mg PO BID [facility] Admin: 09/19/21 08:12 Dose: 400 mg Documented by: Admin: 09/18/21 20:00 Dose: 400 mg Documented by: Admin: 09/18/21 09:11 Dose: 400 mg Documented by: HAYDEE Metoprolol Tartrate (Metoprolol Tartrate 25 Mg Tab) 25 mg PO Q12H [facility] Admin: 09/19/21 08:11 Dose: 25 mg Documented by: Admin: 09/18/21 19:49 Dose: 25 mg Documented by: Admin: 09/18/21 09:10 Dose: 25 mg Documented by: Admin: 09/17/21 21:41 Dose: 25 mg Documented by: QUITA Nicotine (Nicotine 21 Mg/24 Hr Patch) 21 mg TRDERM DAILY [facility] Admin: 09/19/21 08:09 Dose: 21 mg Documented by: Admin: 09/18/21 09:11 Dose: 21 mg Documented by: Admin: 09/17/21 18:00 Dose: 21 mg Documented by: HAYDEE Ondansetron HCl (Ondansetron 4 Mg/2 Ml Sdv) 4 mg IV Q4H PRN PRN Reason: Nausea/Vomiting Pantoprazole Sodium (Pantoprazole 40 Mg Tab.Cr) 40 mg PO BIDAC [facility] Admin: 09/19/21 16:33 Dose: 40 mg Documented by: Admin: 09/19/21 07:52 Dose: 40 mg Documented by: Admin: 09/18/21 15:38 Dose: 40 mg Documented by: HAYDEE Sodium Chloride (Sodium Chloride 0.9% 10 Ml Syringe) 10 ml FLUSH ASDIRECTED PRN PRN Reason: Keep Vein Open Tamsulosin HCl (Tamsulosin 0.4 Mg Cap.Er) 0.4 mg PO DAILY [facility] Last Admin: 09/19/21 08:12 Dose: 0.4 mg Documented by: Admin: 09/18/21 09:11 Dose: 0.4 mg Documented by: Admin: 09/17/21 18:01 Dose: 0.4 mg Documented by: HAYDEE Thiamine HCl (Thiamine 100 Mg Tab) 100 mg PO DAILY [facility] Last Admin: 09/19/21 08:12 Dose: 100 mg Documented by: Admin: 09/18/21 09:11 Dose: 100 mg Documented by: Admin: 09/17/21 18:01 Dose: 100 mg Documented by: HAYDEE Labs: Laboratory Tests 09/16/21 09/16/21 09/16/21 Range/Units 20:30 20:46 20:46 WBC 10.9 (4.5-11.0) K/uL RBC 2.86 L (4.30-5.90) M/uL Hgb 8.5 L (12.0-15.0) g/dL Hct 29.1 L (40.0-54.0) % MCV 102 H (80-98) fL MCH 30 (27-31) pg MCHC 29 L (32-36) % Plt Count 167 (150-400) K/uL Neut % (Auto) 90.6 H (36-66) % Lymph % (Auto) 3.4 L (24-44) % [place] % (Auto) 6.0 (2-6) % Eos % (Auto) 0.0 L (2-4) % Baso % (Auto) 0.0 (0-1) % PT 12.2 H (9.2-10.6) sec INR 1.2 APTT 21.1 L (21.4-31.8) sec Puncture Site ABG pH (7.350-7.450) ABG pCO2 (35.0-42.0) mmHg ABG pO2 (75.0-100.0) mmHg ABG HCO3 (22.0-26.0) mmol/L ABG Total CO2 (23.0-27.0) mmol/L ABG O2 Saturation (95.0-98.0) % ABG O2 Content (15.0-23.0) %vol ABG Base Excess mm/L ABG Hemoglobin (13.5-18.0) g/dL ABG Oxyhemoglobin % ABG Carboxyhemoglobin (0.0-1.6) % ABG Methemoglobin % Álvaro Test O2 Delivery Device Sodium (140-148) mmol/L Potassium (3.6-5.2) mmol/L Chloride (100-108) mmol/L Carbon Dioxide (21-32) mmol/L Anion Gap (5.0-14.0) mmol/L BUN (7-18) mg/dL Creatinine (0.8-1.3) mg/dL Est Cr Clr Drug Dosing mL/min Estimated GFR (MDRD) (>60) Glucose (74-106) mg/dL Lactic Acid (0.4-2.0) mmol/L Calcium (8.5-10.1) mg/dL Total Bilirubin (0.2-1.0) mg/dL AST (15-37) U/L ALT (12-78) U/L Alkaline Phosphatase (46-116) U/L Troponin I (0.000-0.056) ng/mL Total Protein (6.4-8.2) g/dL Albumin (3.4-5.0) g/dL Globulin (2.3-3.5) g/dL Albumin/Globulin Ratio (1.2-2.2) Lipase (73-393) U/L Urine Color (YELLOW) Urine Appearance (CLEAR) Urine pH (5.0-8.0) Ur Specific [place] (1.008-1.030) Urine Protein (NEGATIVE) mg/dL Urine Glucose (UA) (NEGATIVE) mg/dL Urine Ketones (NEGATIVE) mg/dL Urine Occult Blood (NEGATIVE) Urine Nitrite (NEGATIVE) Urine Bilirubin (NEGATIVE) Urine Urobilinogen (0.2-1.0) EU/dL Ur Leukocyte Esterase (NEGATIVE) Urine RBC (0-5) Urine WBC (0-5) Ur Epithelial Cells Amorphous Sediment Urine Bacteria Urine Mucus Salicylates (2.0-20.0) mg/dL Urine Opiates Screen (NEGATIVE) Ur Oxycodone Screen (NEGATIVE) Urine Methadone Screen (NEGATIVE) Ur Propoxyphene Screen (NEGATIVE) Acetaminophen (10.0-30.0) ug/mL Ur Barbiturates Screen (NEGATIVE) Ur Tricyclics Screen (NEGATIVE) Ur Phencyclidine Scrn (NEGATIVE) Ur Amphetamine Screen (NEGATIVE) U Methamphetamines Scrn (NEGATIVE) Urine MDMA Screen (NEGATIVE) U Benzodiazepines Scrn (NEGATIVE) U Cocaine Metab Screen (NEGATIVE) U Marijuana (THC) Screen (NEGATIVE) Ethyl Alcohol mg/dL Ketones (NEGATIVE) SARS CoV-2 RNA Rapid CIELO Negative Blood Type Gel Antibody Screen Crossmatch 09/16/21 09/16/21 09/16/21 Range/Units 20:46 20:46 20:46 WBC (4.5-11.0) K/uL RBC (4.30-5.90) M/uL Hgb (12.0-15.0) g/dL Hct (40.0-54.0) % MCV (80-98) fL MCH (27-31) pg MCHC (32-36) % Plt Count (150-400) K/uL Neut % (Auto) (36-66) % Lymph % (Auto) (24-44) % [place] % (Auto) (2-6) % Eos % (Auto) (2-4) % Baso % (Auto) (0-1) % PT (9.2-10.6) sec INR APTT (21.4-31.8) sec Puncture Site ABG pH (7.350-7.450) ABG pCO2 (35.0-42.0) mmHg ABG pO2 (75.0-100.0) mmHg ABG HCO3 (22.0-26.0) mmol/L ABG Total CO2 (23.0-27.0) mmol/L ABG O2 Saturation (95.0-98.0) % ABG O2 Content (15.0-23.0) %vol ABG Base Excess mm/L ABG Hemoglobin (13.5-18.0) g/dL ABG Oxyhemoglobin % ABG Carboxyhemoglobin (0.0-1.6) % ABG Methemoglobin % Álvaro Test O2 Delivery Device Sodium 133 L (140-148) mmol/L Potassium 4.6 (3.6-5.2) mmol/L Chloride 93 L (100-108) mmol/L Carbon Dioxide 8 L D (21-32) mmol/L Anion Gap 36.6 H (5.0-14.0) mmol/L BUN 13 D (7-18) mg/dL Creatinine 1.0 D (0.8-1.3) mg/dL Est Cr Clr Drug Dosing 84.45 mL/min Estimated GFR (MDRD) > 60 (>60) Glucose 216 H (74-106) mg/dL Lactic Acid 11.0 H (0.4-2.0) mmol/L Calcium 8.1 L (8.5-10.1) mg/dL Total Bilirubin 2.0 H D (0.2-1.0) mg/dL AST 194 H (15-37) U/L ALT 79 H (12-78) U/L Alkaline Phosphatase 345 H (46-116) U/L Troponin I < 0.017 (0.000-0.056) ng/mL Total Protein 6.9 (6.4-8.2) g/dL Albumin 3.2 L (3.4-5.0) g/dL Globulin 3.7 H (2.3-3.5) g/dL Albumin/Globulin Ratio 0.9 L (1.2-2.2) Lipase 163 (73-393) U/L Urine Color (YELLOW) Urine Appearance (CLEAR) Urine pH (5.0-8.0) Ur Specific [place] (1.008-1.030) Urine Protein (NEGATIVE) mg/dL Urine Glucose (UA) (NEGATIVE) mg/dL Urine Ketones (NEGATIVE) mg/dL Urine Occult Blood (NEGATIVE) Urine Nitrite (NEGATIVE) Urine Bilirubin (NEGATIVE) Urine Urobilinogen (0.2-1.0) EU/dL Ur Leukocyte Esterase (NEGATIVE) Urine RBC (0-5) Urine WBC (0-5) Ur Epithelial Cells Amorphous Sediment Urine Bacteria Urine Mucus Salicylates (2.0-20.0) mg/dL Urine Opiates Screen (NEGATIVE) Ur Oxycodone Screen (NEGATIVE) Urine Methadone Screen (NEGATIVE) Ur Propoxyphene Screen (NEGATIVE) Acetaminophen (10.0-30.0) ug/mL Ur Barbiturates Screen (NEGATIVE) Ur Tricyclics Screen (NEGATIVE) Ur Phencyclidine Scrn (NEGATIVE) Ur Amphetamine Screen (NEGATIVE) U Methamphetamines Scrn (NEGATIVE) Urine MDMA Screen (NEGATIVE) U Benzodiazepines Scrn (NEGATIVE) U Cocaine Metab Screen (NEGATIVE) U Marijuana (THC) Screen (NEGATIVE) Ethyl Alcohol 5 mg/dL Ketones (NEGATIVE) SARS CoV-2 RNA Rapid CIELO Blood Type Gel Antibody Screen Crossmatch 09/16/21 09/16/21 09/16/21 Range/Units 21:34 21:54 21:54 WBC (4.5-11.0) K/uL RBC (4.30-5.90) M/uL Hgb (12.0-15.0) g/dL Hct (40.0-54.0) % MCV (80-98) fL MCH (27-31) pg MCHC (32-36) % Plt Count (150-400) K/uL Neut % (Auto) (36-66) % Lymph % (Auto) (24-44) % [place] % (Auto) (2-6) % Eos % (Auto) (2-4) % Baso % (Auto) (0-1) % PT (9.2-10.6) sec INR APTT (21.4-31.8) sec Puncture Site Rt radial ABG pH 7.210 L (7.350-7.450) ABG pCO2 16.7 L* (35.0-42.0) mmHg ABG pO2 107.0 H (75.0-100.0) mmHg ABG HCO3 6.4 L (22.0-26.0) mmol/L ABG Total CO2 6.4 L (23.0-27.0) mmol/L ABG O2 Saturation 96.3 (95.0-98.0) % ABG O2 Content 10.4 L (15.0-23.0) %vol ABG Base Excess -20.1 mm/L ABG Hemoglobin 7.8 L (13.5-18.0) g/dL ABG Oxyhemoglobin 93.0 % ABG Carboxyhemoglobin 1.9 H (0.0-1.6) % ABG Methemoglobin 1.5 % Álvaro Test Passed O2 Delivery Device Room air Sodium (140-148) mmol/L Potassium (3.6-5.2) mmol/L Chloride (100-108) mmol/L Carbon Dioxide (21-32) mmol/L Anion Gap (5.0-14.0) mmol/L BUN (7-18) mg/dL Creatinine (0.8-1.3) mg/dL Est Cr Clr Drug Dosing mL/min Estimated GFR (MDRD) (>60) Glucose (74-106) mg/dL Lactic Acid (0.4-2.0) mmol/L Calcium (8.5-10.1) mg/dL Total Bilirubin (0.2-1.0) mg/dL AST (15-37) U/L ALT (12-78) U/L Alkaline Phosphatase (46-116) U/L Troponin I (0.000-0.056) ng/mL Total Protein (6.4-8.2) g/dL Albumin (3.4-5.0) g/dL Globulin (2.3-3.5) g/dL Albumin/Globulin Ratio (1.2-2.2) Lipase (73-393) U/L Urine Color (YELLOW) Urine Appearance (CLEAR) Urine pH (5.0-8.0) Ur Specific [place] (1.008-1.030) Urine Protein (NEGATIVE) mg/dL Urine Glucose (UA) (NEGATIVE) mg/dL Urine Ketones (NEGATIVE) mg/dL Urine Occult Blood (NEGATIVE) Urine Nitrite (NEGATIVE) Urine Bilirubin (NEGATIVE) Urine Urobilinogen (0.2-1.0) EU/dL Ur Leukocyte Esterase (NEGATIVE) Urine RBC (0-5) Urine WBC (0-5) Ur Epithelial Cells Amorphous Sediment Urine Bacteria Urine Mucus Salicylates (2.0-20.0) mg/dL Urine Opiates Screen (NEGATIVE) Ur Oxycodone Screen (NEGATIVE) Urine Methadone Screen (NEGATIVE) Ur Propoxyphene Screen (NEGATIVE) Acetaminophen 0.0 L (10.0-30.0) ug/mL Ur Barbiturates Screen (NEGATIVE) Ur Tricyclics Screen (NEGATIVE) Ur Phencyclidine Scrn (NEGATIVE) Ur Amphetamine Screen (NEGATIVE) U Methamphetamines Scrn (NEGATIVE) Urine MDMA Screen (NEGATIVE) U Benzodiazepines Scrn (NEGATIVE) U Cocaine Metab Screen (NEGATIVE) U Marijuana (THC) Screen (NEGATIVE) Ethyl Alcohol mg/dL Ketones Small H (NEGATIVE) SARS CoV-2 RNA Rapid CIELO Blood Type Gel Antibody Screen Crossmatch 09/16/21 09/16/21 09/16/21 Range/Units 21:54 23:56 23:56 WBC (4.5-11.0) K/uL RBC (4.30-5.90) M/uL Hgb (12.0-15.0) g/dL Hct (40.0-54.0) % MCV (80-98) fL MCH (27-31) pg MCHC (32-36) % Plt Count (150-400) K/uL Neut % (Auto) (36-66) % Lymph % (Auto) (24-44) % [place] % (Auto) (2-6) % Eos % (Auto) (2-4) % Baso % (Auto) (0-1) % PT (9.2-10.6) sec INR APTT (21.4-31.8) sec Puncture Site ABG pH (7.350-7.450) ABG pCO2 (35.0-42.0) mmHg ABG pO2 (75.0-100.0) mmHg ABG HCO3 (22.0-26.0) mmol/L ABG Total CO2 (23.0-27.0) mmol/L ABG O2 Saturation (95.0-98.0) % ABG O2 Content (15.0-23.0) %vol ABG Base Excess mm/L ABG Hemoglobin (13.5-18.0) g/dL ABG Oxyhemoglobin % ABG Carboxyhemoglobin (0.0-1.6) % ABG Methemoglobin % Álvaro Test O2 Delivery Device Sodium (140-148) mmol/L Potassium (3.6-5.2) mmol/L Chloride (100-108) mmol/L Carbon Dioxide (21-32) mmol/L Anion Gap (5.0-14.0) mmol/L BUN (7-18) mg/dL Creatinine (0.8-1.3) mg/dL Est Cr Clr Drug Dosing mL/min Estimated GFR (MDRD) (>60) Glucose (74-106) mg/dL Lactic Acid (0.4-2.0) mmol/L Calcium (8.5-10.1) mg/dL Total Bilirubin (0.2-1.0) mg/dL AST (15-37) U/L ALT (12-78) U/L Alkaline Phosphatase (46-116) U/L Troponin I (0.000-0.056) ng/mL Total Protein (6.4-8.2) g/dL Albumin (3.4-5.0) g/dL Globulin (2.3-3.5) g/dL Albumin/Globulin Ratio (1.2-2.2) Lipase (73-393) U/L Urine Color Yellow (YELLOW) Urine Appearance Clear (CLEAR) Urine pH 6.0 (5.0-8.0) Ur Specific [place] >= 1.030 (1.008-1.030) Urine Protein 30 H (NEGATIVE) mg/dL Urine Glucose (UA) Normal (NEGATIVE) mg/dL Urine Ketones 80 H (NEGATIVE) mg/dL Urine Occult Blood Trace-lysed H (NEGATIVE) Urine Nitrite Negative (NEGATIVE) Urine Bilirubin Negative (NEGATIVE) Urine Urobilinogen 0.2 (0.2-1.0) EU/dL Ur Leukocyte Esterase Negative (NEGATIVE) Urine RBC 0-5 (0-5) Urine WBC 0-5 (0-5) Ur Epithelial Cells Few Amorphous Sediment Not seen Urine Bacteria Rare Urine Mucus Not seen Salicylates 0.9 L (2.0-20.0) mg/dL Urine Opiates Screen Negative (NEGATIVE) Ur Oxycodone Screen Negative (NEGATIVE) Urine Methadone Screen Negative (NEGATIVE) Ur Propoxyphene Screen Negative (NEGATIVE) Acetaminophen (10.0-30.0) ug/mL Ur Barbiturates Screen Negative (NEGATIVE) Ur Tricyclics Screen Negative (NEGATIVE) Ur Phencyclidine Scrn Negative (NEGATIVE) Ur Amphetamine Screen Negative (NEGATIVE) U Methamphetamines Scrn Negative (NEGATIVE) Urine MDMA Screen Negative (NEGATIVE) U Benzodiazepines Scrn Negative (NEGATIVE) U Cocaine Metab Screen Negative (NEGATIVE) U Marijuana (THC) Screen Presumptive positive H (NEGATIVE) Ethyl Alcohol mg/dL Ketones (NEGATIVE) SARS CoV-2 RNA Rapid CIELO Blood Type Gel Antibody Screen Crossmatch 09/17/21 09/17/21 09/17/21 Range/Units 01:39 01:40 01:40 WBC (4.5-11.0) K/uL RBC (4.30-5.90) M/uL Hgb (12.0-15.0) g/dL Hct (40.0-54.0) % MCV (80-98) fL MCH (27-31) pg MCHC (32-36) % Plt Count (150-400) K/uL Neut % (Auto) (36-66) % Lymph % (Auto) (24-44) % [place] % (Auto) (2-6) % Eos % (Auto) (2-4) % Baso % (Auto) (0-1) % PT (9.2-10.6) sec INR APTT (21.4-31.8) sec Puncture Site L radial ABG pH 7.290 L (7.350-7.450) ABG pCO2 18.2 L* (35.0-42.0) mmHg ABG pO2 100.0 (75.0-100.0) mmHg ABG HCO3 8.5 L (22.0-26.0) mmol/L ABG Total CO2 8.4 L (23.0-27.0) mmol/L ABG O2 Saturation 96.5 (95.0-98.0) % ABG O2 Content 8.5 L (15.0-23.0) %vol ABG Base Excess -16.9 mm/L ABG Hemoglobin 6.4 L (13.5-18.0) g/dL ABG Oxyhemoglobin 92.5 % ABG Carboxyhemoglobin 2.6 H (0.0-1.6) % ABG Methemoglobin 1.5 % Álvaro Test Passed O2 Delivery Device Room air Sodium (140-148) mmol/L Potassium (3.6-5.2) mmol/L Chloride (100-108) mmol/L Carbon Dioxide (21-32) mmol/L Anion Gap (5.0-14.0) mmol/L BUN (7-18) mg/dL Creatinine (0.8-1.3) mg/dL Est Cr Clr Drug Dosing mL/min Estimated GFR (MDRD) (>60) Glucose (74-106) mg/dL Lactic Acid 3.2 H (0.4-2.0) mmol/L Calcium (8.5-10.1) mg/dL Total Bilirubin (0.2-1.0) mg/dL AST (15-37) U/L ALT (12-78) U/L Alkaline Phosphatase (46-116) U/L Troponin I (0.000-0.056) ng/mL Total Protein (6.4-8.2) g/dL Albumin (3.4-5.0) g/dL Globulin (2.3-3.5) g/dL Albumin/Globulin Ratio (1.2-2.2) Lipase (73-393) U/L Urine Color (YELLOW) Urine Appearance (CLEAR) Urine pH (5.0-8.0) Ur Specific [place] (1.008-1.030) Urine Protein (NEGATIVE) mg/dL Urine Glucose (UA) (NEGATIVE) mg/dL Urine Ketones (NEGATIVE) mg/dL Urine Occult Blood (NEGATIVE) Urine Nitrite (NEGATIVE) Urine Bilirubin (NEGATIVE) Urine Urobilinogen (0.2-1.0) EU/dL Ur Leukocyte Esterase (NEGATIVE) Urine RBC (0-5) Urine WBC (0-5) Ur Epithelial Cells Amorphous Sediment Urine Bacteria Urine Mucus Salicylates (2.0-20.0) mg/dL Urine Opiates Screen (NEGATIVE) Ur Oxycodone Screen (NEGATIVE) Urine Methadone Screen (NEGATIVE) Ur Propoxyphene Screen (NEGATIVE) Acetaminophen (10.0-30.0) ug/mL Ur Barbiturates Screen (NEGATIVE) Ur Tricyclics Screen (NEGATIVE) Ur Phencyclidine Scrn (NEGATIVE) Ur Amphetamine Screen (NEGATIVE) U Methamphetamines Scrn (NEGATIVE) Urine MDMA Screen (NEGATIVE) U Benzodiazepines Scrn (NEGATIVE) U Cocaine Metab Screen (NEGATIVE) U Marijuana (THC) Screen (NEGATIVE) Ethyl Alcohol mg/dL Ketones (NEGATIVE) SARS CoV-2 RNA Rapid CIELO Blood Type O POSITIVE Gel Antibody Screen Negative Crossmatch See Detail 09/17/21 09/17/21 09/17/21 Range/Units 07:10 07:10 07:10 WBC 12.0 H (4.5-11.0) K/uL RBC 3.28 L (4.30-5.90) M/uL Hgb 9.8 L (12.0-15.0) g/dL Hct 31.3 L (40.0-54.0) % MCV 95 (80-98) fL MCH 30 (27-31) pg MCHC 31 L (32-36) % Plt Count 95 L (150-400) K/uL Neut % (Auto) (36-66) % Lymph % (Auto) (24-44) % [place] % (Auto) (2-6) % Eos % (Auto) (2-4) % Baso % (Auto) (0-1) % PT (9.2-10.6) sec INR APTT (21.4-31.8) sec Puncture Site ABG pH (7.350-7.450) ABG pCO2 (35.0-42.0) mmHg ABG pO2 (75.0-100.0) mmHg ABG HCO3 (22.0-26.0) mmol/L ABG Total CO2 (23.0-27.0) mmol/L ABG O2 Saturation (95.0-98.0) % ABG O2 Content (15.0-23.0) %vol ABG Base Excess mm/L ABG Hemoglobin (13.5-18.0) g/dL ABG Oxyhemoglobin % ABG Carboxyhemoglobin (0.0-1.6) % ABG Methemoglobin % Álvaro Test O2 Delivery Device Sodium 133 L (140-148) mmol/L Potassium 4.7 (3.6-5.2) mmol/L Chloride 99 L (100-108) mmol/L Carbon Dioxide 13 L (21-32) mmol/L Anion Gap 25.7 H (5.0-14.0) mmol/L BUN 11 (7-18) mg/dL Creatinine 0.7 L (0.8-1.3) mg/dL Est Cr Clr Drug Dosing 120.64 mL/min Estimated GFR (MDRD) > 60 (>60) Glucose 113 H (74-106) mg/dL Lactic Acid 1.3 (0.4-2.0) mmol/L Calcium 6.8 L* D (8.5-10.1) mg/dL Total Bilirubin 2.7 H (0.2-1.0) mg/dL AST 186 H (15-37) U/L ALT 62 (12-78) U/L Alkaline Phosphatase 271 H (46-116) U/L Troponin I (0.000-0.056) ng/mL Total Protein 5.8 L (6.4-8.2) g/dL Albumin 2.7 L (3.4-5.0) g/dL Globulin 3.1 (2.3-3.5) g/dL Albumin/Globulin Ratio 0.9 L (1.2-2.2) Lipase (73-393) U/L Urine Color (YELLOW) Urine Appearance (CLEAR) Urine pH (5.0-8.0) Ur Specific [place] (1.008-1.030) Urine Protein (NEGATIVE) mg/dL Urine Glucose (UA) (NEGATIVE) mg/dL Urine Ketones (NEGATIVE) mg/dL Urine Occult Blood (NEGATIVE) Urine Nitrite (NEGATIVE) Urine Bilirubin (NEGATIVE) Urine Urobilinogen (0.2-1.0) EU/dL Ur Leukocyte Esterase (NEGATIVE) Urine RBC (0-5) Urine WBC (0-5) Ur Epithelial Cells Amorphous Sediment Urine Bacteria Urine Mucus Salicylates (2.0-20.0) mg/dL Urine Opiates Screen (NEGATIVE) Ur Oxycodone Screen (NEGATIVE) Urine Methadone Screen (NEGATIVE) Ur Propoxyphene Screen (NEGATIVE) Acetaminophen (10.0-30.0) ug/mL Ur Barbiturates Screen (NEGATIVE) Ur Tricyclics Screen (NEGATIVE) Ur Phencyclidine Scrn (NEGATIVE) Ur Amphetamine Screen (NEGATIVE) U Methamphetamines Scrn (NEGATIVE) Urine MDMA Screen (NEGATIVE) U Benzodiazepines Scrn (NEGATIVE) U Cocaine Metab Screen (NEGATIVE) U Marijuana (THC) Screen (NEGATIVE) Ethyl Alcohol mg/dL Ketones (NEGATIVE) SARS CoV-2 RNA Rapid CIELO Blood Type Gel Antibody Screen Crossmatch 09/17/21 09/17/21 Range/Units 15:05 15:10 WBC (4.5-11.0) K/uL RBC (4.30-5.90) M/uL Hgb 10.1 L (12.0-15.0) g/dL Hct (40.0-54.0) % MCV (80-98) fL MCH (27-31) pg MCHC (32-36) % Plt Count (150-400) K/uL Neut % (Auto) (36-66) % Lymph % (Auto) (24-44) % [place] % (Auto) (2-6) % Eos % (Auto) (2-4) % Baso % (Auto) (0-1) % PT (9.2-10.6) sec INR APTT (21.4-31.8) sec Puncture Site ABG pH (7.350-7.450) ABG pCO2 (35.0-42.0) mmHg ABG pO2 (75.0-100.0) mmHg ABG HCO3 (22.0-26.0) mmol/L ABG Total CO2 (23.0-27.0) mmol/L ABG O2 Saturation (95.0-98.0) % ABG O2 Content (15.0-23.0) %vol ABG Base Excess mm/L ABG Hemoglobin (13.5-18.0) g/dL ABG Oxyhemoglobin % ABG Carboxyhemoglobin (0.0-1.6) % ABG Methemoglobin % Álvaro Test O2 Delivery Device Sodium 134 L (140-148) mmol/L Potassium 3.2 L (3.6-5.2) mmol/L Chloride 98 L (100-108) mmol/L Carbon Dioxide 13 L (21-32) mmol/L Anion Gap 26.2 H (5.0-14.0) mmol/L BUN 7 (7-18) mg/dL Creatinine 0.6 L (0.8-1.3) mg/dL Est Cr Clr Drug Dosing 140.75 mL/min Estimated GFR (MDRD) > 60 (>60) Glucose 105 (74-106) mg/dL Lactic Acid (0.4-2.0) mmol/L Calcium 6.6 L* (8.5-10.1) mg/dL Total Bilirubin (0.2-1.0) mg/dL AST (15-37) U/L ALT (12-78) U/L Alkaline Phosphatase (46-116) U/L Troponin I (0.000-0.056) ng/mL Total Protein (6.4-8.2) g/dL Albumin (3.4-5.0) g/dL Globulin (2.3-3.5) g/dL Albumin/Globulin Ratio (1.2-2.2) Lipase (73-393) U/L Urine Color (YELLOW) Urine Appearance (CLEAR) Urine pH (5.0-8.0) Ur Specific [place] (1.008-1.030) Urine Protein (NEGATIVE) mg/dL Urine Glucose (UA) (NEGATIVE) mg/dL Urine Ketones (NEGATIVE) mg/dL Urine Occult Blood (NEGATIVE) Urine Nitrite (NEGATIVE) Urine Bilirubin (NEGATIVE) Urine Urobilinogen (0.2-1.0) EU/dL Ur Leukocyte Esterase (NEGATIVE) Urine RBC (0-5) Urine WBC (0-5) Ur Epithelial Cells Amorphous Sediment Urine Bacteria Urine Mucus Salicylates (2.0-20.0) mg/dL Urine Opiates Screen (NEGATIVE) Ur Oxycodone Screen (NEGATIVE) Urine Methadone Screen (NEGATIVE) Ur Propoxyphene Screen (NEGATIVE) Acetaminophen (10.0-30.0) ug/mL Ur Barbiturates Screen (NEGATIVE) Ur Tricyclics Screen (NEGATIVE) Ur Phencyclidine Scrn (NEGATIVE) Ur Amphetamine Screen (NEGATIVE) U Methamphetamines Scrn (NEGATIVE) Urine MDMA Screen (NEGATIVE) U Benzodiazepines Scrn (NEGATIVE) U Cocaine Metab Screen (NEGATIVE) U Marijuana (THC) Screen (NEGATIVE) Ethyl Alcohol mg/dL Ketones (NEGATIVE) SARS CoV-2 RNA Rapid CIELO Blood Type Gel Antibody Screen Crossmatch Meds: Medications Generic Name Dose Route Start Last Admin Trade Name Freq PRN Reason Stop Dose Admin Acetaminophen 650 mg 09/17/21 16:48 Acetaminophen 325 Mg Tab PO Q4H PRN Pain (Mild 1-3)/fever Albuterol 2.5 mg 09/17/21 16:48 09/17/21 19:39 Albuterol 0.083% 2.5 Mg/3 Ml Neb Soln NEB 2.5 mg Q4H PRN Administration Dyspnea Albuterol 0 gm 09/18/21 08:00 09/19/21 08:08 Albuterol 8 Gm Inhaler INH 2 inh BIDRT JODIE Administration Albuterol/Ipratropium 3 ml 09/17/21 21:00 09/19/21 14:59 Albuterol/Ipratropium 3.0-0.5 Mg/3 Ml Neb Soln NEB 3 ml QIDRT JODIE Administration Cyanocobalamin 1,000 mcg 09/19/21 09:45 09/19/21 10:28 Cyanocobalamin (Vitamin B12) 1,000 Mcg Tab PO 1,000 mcg DAILY JODIE Administration Folic Acid 1 mg 09/17/21 16:48 09/19/21 08:12 Folic Acid 1 Mg Tab PO 1 mg DAILY JODIE Administration Metronidazole 500 mg/ Premix 100 mls @ 100 mls/hr 09/17/21 18:00 09/19/21 17:30 IV 100 mls/hr Q8H JODIE Administration Ceftriaxone Sodium 1 gm/ 50 mls @ 100 mls/hr 09/18/21 14:30 09/19/21 14:33 Sodium Chloride IV 100 mls/hr Q24H JODIE Administration Lorazepam 0 mg 09/17/21 16:48 Lorazepam 2 Mg/Ml Sdv IV ASDIRECTED JODIE Protocol Lorazepam 0 mg 09/17/21 16:48 09/19/21 16:33 Lorazepam 1 Mg Tab PO 1 mg ASDIRECTED JODIE Administration Protocol Magnesium Oxide 400 mg 09/18/21 09:00 09/19/21 08:12 Magnesium Oxide 400 Mg Tab PO 400 mg BID JODIE Administration Metoprolol Tartrate 25 mg 09/17/21 20:00 09/19/21 08:11 Metoprolol Tartrate 25 Mg Tab PO 25 mg Q12H JODIE Administration Nicotine 21 mg 09/17/21 16:48 09/19/21 08:09 Nicotine 21 Mg/24 Hr Patch TRDERM 21 mg DAILY JODIE Administration Ondansetron HCl 4 mg 09/17/21 16:48 Ondansetron 4 Mg/2 Ml Sdv IV Q4H PRN Nausea/Vomiting Pantoprazole Sodium 40 mg 09/18/21 16:30 09/19/21 16:33 Pantoprazole 40 Mg Tab.Cr PO 40 mg BIDAC JODIE Administration Sodium Chloride 10 ml 09/17/21 16:48 Sodium Chloride 0.9% 10 Ml Syringe FLUSH ASDIRECTED PRN Keep Vein Open Tamsulosin HCl 0.4 mg 09/17/21 16:48 09/19/21 08:12 Tamsulosin 0.4 Mg Cap.Er PO 0.4 mg DAILY JODIE Administration Thiamine HCl 100 mg 09/17/21 16:48 09/19/21 08:12 Thiamine 100 Mg Tab PO 100 mg DAILY JODIE Administration Discontinued Medications Generic Name Dose Route Start Last Admin Trade Name Freq PRN Reason Stop Dose Admin Adenosine 12 mg 09/16/21 20:21 09/16/21 20:30 Adenosine 6 Mg/2 Ml Sdv IVPUSH 09/16/21 20:22 12 mg NOW ONE Administration Adenosine Confirm 09/16/21 20:21 09/17/21 08:08 Adenosine 6 Mg/2 Ml Sdv Administered 09/16/21 20:22 Not Given Dose 12 mg .ROUTE .STK-MED ONE Albuterol 0 gm 09/17/21 21:00 09/18/21 01:50 Albuterol 8 Gm Inhaler INH Not Given BID JODIE Cefepime HCl Confirm 09/16/21 22:03 09/16/21 22:14 Cefepime 1 Gm Vial Administered 09/16/21 22:04 Not Given Dose 2 gm .ROUTE .STK-MED ONE Fentanyl Confirm 09/18/21 07:18 Fentanyl 100 Mcg/2 Ml Sdv Administered 09/18/21 07:19 Dose 100 mcg .ROUTE .STK-MED ONE Sodium Chloride 1,000 mls @ 999 mls/hr 09/16/21 20:30 09/16/21 20:39 Normal Saline IV 999 mls/hr ASDIRECTED JODIE Administration Esmolol HCl 250 mls @ 23.133 mls/hr 09/16/21 20:45 09/17/21 04:02 Esmolol Hcl In Sterile Water 2,500 Mg/250 Ml IV 0 mcg/kg/min TITRATE JODIE 0 mls/hr Titration Protocol 50 MCG/KG/MIN Sodium Chloride 1,000 mls @ 999 mls/hr 09/16/21 22:00 09/16/21 22:01 Normal Saline IV 999 mls/hr ASDIRECTED JODIE Administration Cefepime HCl 2 gm/ Sodium 50 mls @ 100 mls/hr 09/16/21 21:50 09/16/21 22:07 Chloride IV 09/16/21 22:19 100 mls/hr ONETIME ONE Administration Sodium Chloride Confirm 09/16/21 22:06 09/16/21 22:14 Normal Saline Administered 09/16/21 22:07 Not Given Dose 100 mls @ as directed .ROUTE .STK-MED ONE Sodium Chloride 1,000 mls @ 125 mls/hr 09/17/21 01:00 09/17/21 07:40 Normal Saline IV 125 mls/hr ASDIRECTED JODIE Administration Octreotide Acetate 500 mcg/ 500 mls @ 50 mls/hr 09/17/21 02:30 09/19/21 11:39 Sodium Chloride IV Not Given Q10H JODIE 50 MCG/HR Pantoprazole Sodium 80 mg/ 100 mls @ 10 mls/hr 09/17/21 02:30 09/19/21 11:37 Sodium Chloride IV Not Given Q10H JODIE Sodium Chloride Confirm 09/17/21 03:31 09/17/21 05:57 Normal Saline Administered 09/17/21 03:32 Not Given Dose 100 mls @ as directed .ROUTE .STK-MED ONE Multivitamins/Minerals 10 ml/ 1,017.2 mls @ 500 mls/hr 09/17/21 08:00 09/17/21 08:11 Thiamine HCl 100 mg/ Folic IV 09/17/21 10:02 500 mls/hr Acid 1 mg/ Magnesium Sulfate 3 ASDIRECTED ONE Administration gm/ Sodium Chloride Octreotide Acetate 500 mcg/ 500 mls @ 50 mls/hr 09/17/21 13:15 09/19/21 11:14 Sodium Chloride IV Not Given Q10H JODIE 50 MCG/HR Pantoprazole Sodium 80 mg/ 100 mls @ 10 mls/hr 09/17/21 13:15 09/19/21 11:14 Sodium Chloride IV Not Given Q10H JODIE Calcium Gluconate 2 gm/ Sodium 120 mls @ 100 mls/hr 09/17/21 15:45 09/17/21 16:15 Chloride IV 09/17/21 16:56 100 mls/hr ONETIME ONE Administration Sodium Chloride 1,000 mls @ 125 mls/hr 09/17/21 16:48 Normal Saline IV ASDIRECTED JODIE Ciprofloxacin/Dextrose 400 mg/ 200 mls @ 200 mls/hr 09/17/21 17:00 09/18/21 04:58 Premix IV 200 mls/hr Q12H JODIE Administration Multivitamins/Minerals 10 ml/ 1,015.2 mls @ 100 mls/hr 09/17/21 16:48 09/17/21 18:17 Thiamine HCl 100 mg/ Folic IV 09/18/21 02:57 Not Given Acid 1 mg/ Magnesium Sulfate 2 ONETIME ONE gm/ Sodium Chloride Potassium Chloride 40 meq/ 100 mls @ 25 mls/hr 09/17/21 20:02 09/19/21 11:40 Premix IV 09/18/21 00:01 Not Given ONETIME ONE Potassium Chloride 20 meq/ 0 mls @ 50 mls/hr 09/17/21 21:00 09/17/21 23:13 Premix IV 09/17/21 23:01 50 mls/hr Q2H JODIE Administration Potassium Chloride 20 meq/ 112 mls @ 56 mls/hr 09/18/21 07:15 09/18/21 09:58 Lidocaine HCl 2 ml/ Sodium IV 09/18/21 11:14 56 mls/hr Chloride Q2H JODIE Administration Magnesium Sulfate 2 gm/ Premix 50 mls @ 25 mls/hr 09/18/21 09:00 09/18/21 20:57 IV 09/18/21 22:59 25 mls/hr Q6H JODIE Administration Lidocaine HCl 5 ml 09/17/21 20:58 09/17/21 21:40 Lidocaine 1% 5 Ml Sdv INJECT 09/17/21 20:59 5 ml ONETIME ONE Administration Midazolam HCl Confirm 09/18/21 07:18 Midazolam 1 Mg/Ml 2 Ml Sdv Administered 09/18/21 07:19 Dose 2 mg .ROUTE .STK-MED ONE Octreotide Acetate Confirm 09/17/21 03:32 09/17/21 05:57 Octreotide 200 Mcg/Ml 5 Ml Mdv Administered 09/17/21 03:33 Not Given Dose 1,000 mcg .ROUTE .STK-MED ONE Pantoprazole Sodium Confirm 09/17/21 03:31 09/17/21 05:57 Pantoprazole 40 Mg Vial Administered 09/17/21 03:32 Not Given Dose 80 mg .ROUTE .STK-MED ONE Potassium Chloride 40 meq 09/17/21 20:01 09/17/21 21:40 Potassium Chloride 20 Meq Tab.Er PO 09/17/21 20:02 40 meq ONETIME ONE Administration Potassium Chloride 40 meq 09/18/21 08:00 09/18/21 09:10 Potassium Chloride 20 Meq Tab.Er PO 09/18/21 08:01 40 meq ONETIME ONE Administration Potassium Chloride 40 meq 09/18/21 13:00 09/18/21 13:27 Potassium Chloride 20 Meq Tab.Er PO 09/18/21 13:01 40 meq ONETIME ONE Administration Potassium Chloride 40 meq 09/18/21 18:46 09/18/21 19:49 Potassium Chloride 20 Meq Tab.Er PO 09/18/21 18:47 40 meq ONETIME ONE Administration Propofol Confirm 09/18/21 07:18 Propofol 200 Mg/20 Ml Sdv Administered 09/18/21 07:19 Dose 200 mg .ROUTE .STK-MED ONE Propofol Confirm 09/18/21 07:55 Propofol 200 Mg/20 Ml Sdv Administered 09/18/21 07:56 Dose 200 mg .ROUTE .STK-MED ONE Sodium Chloride 10 ml 09/16/21 21:51 09/17/21 02:17 Sodium Chloride 0.9% 10 Ml Syringe FLUSH 10 ml ASDIRECTED PRN Administration Keep Vein Open - Radiology Interpretation Free Text/Narrative:: I reviewed the images of the CT of the abdomen and pelvis without contrast as well as the report. The report is as follows: FINDINGS: In the abdomen, the liver is now low in density, representing new fatty infiltration. There is no sign of mass. The spleen, pancreas and adrenals are normal in appearance. The unenhanced kidneys are normal in appearance. The previously seen heterogeneous fluid collections located in the posterior left perinephric space and extending into the left psoas muscle have resolved, consistent with resolution of pseudocysts. The previously seen mild left hydronephrosis and left hydroureter have completely resolved. There is new minimal cholelithiasis, with 2 small dependent calcified gallstones in the gallbladder. There is no sign of gallbladder wall thickening or pericholecystic fluid. The abdominal aorta is normal in caliber with no sign of dilatation. There is no sign of retroperitoneal mass or adenopathy. The stomach, loops of small bowel, and colon in the abdomen are normal in appearance. In the pelvis, the appendix is nonvisualized, but there is no sign of an inflammatory process in the area of the appendix. The loops of small bowel in the pelvis are normal in appearance. There is new moderate mucosal thickening of the sigmoid colon consistent with a nonspecific colitis. This does not appear to be from diverticulitis, with no sign of a pericolonic inflammation. Again seen is severe sigmoid diverticulosis. The prostate has slightly decreased in size and is now mildly enlarged, rather than moderately enlarged. Normal in appearance. The urinary bladder is normal in appearance. There is no sign of pelvic or inguinal mass or adenopathy. Again seen is a small fat containing right inguinal hernia. There is no sign of free air or free fluid in the abdomen or pelvis. The lung bases are clear. The osseous structures are normal in appearance for the patient`s age. IMPRESSION: Nothing seen to explain the patient`s decreasing hemoglobin, with no sign of any intra abdominal or retroperitoneal hemorrhage. CT of the abdomen shows new fatty infiltration of the liver. Resolution of previously seen pancreatic pseudocysts posterior to the left kidney and in the left psoas muscle. New minimal cholelithiasis with no sign of acute cholecystitis. CT of the pelvis shows new moderate colitis of the sigmoid colon, nonspecific. Stable severe diverticulosis of the sigmoid colon with no sign of diverticulitis. Slight decrease in size of the prostate, now mildly enlarged. Please note that all CT scans at this facility use dose modulation, iterative reconstruction, and/or weight-based dosing when appropriate to reduce radiation dose to as low as reasonably achievable. Dictated by Nickolas Dueñas MD @ 09/17/2021 3:54:56 AM - Re-Assessments/Exams Free Text/Narrative Re-Assessment/Exam: 09/16/21 21:22 I reviewed the patient's labs showing a CBC leukocyte count of 10.9, hemoglobin of 8.5, hematocrit 29.1 and a platelet count of 167,000. The comprehensive metabolic panel shows a sodium of 133, potassium 4.6, chloride of 93, bicarbonate of 8, BUN of 13 with a creatinine 1.0 and a glucose of 216. The bilirubin is elevated to 2.0, AST is 194, ALT is 79, alkaline phosphatase is 345 and lipase is 63. Ethanol level is normal at 5. Troponin is normal at less than 0.017. PT is 12.2 with an INR of 1.2 and PTT is 21.1. As the patient has a significantly low bicarbonate we got an ABG on room air showing a pH of 7.21, PCO2 of 16.7, PO2 of 107, bicarbonate of 6.4 with an SPO2 of 96% on room air. Troubling is that the anion gap is 36.6. The patient has had a couple episodes of diarrhea and some pink-tinged emesis. He has had a long history of alcohol abuse but states that he has not had a drink in 5 days. He has not been eating. He has been taking aspirin and ibuprofen so we look for evidence to cause a metabolic acidosis with a partial respiratory compensation. Patient has a high glucose of 216 so we got a serum ketone which came back positive. Urinalysis shows concentrated urine with a specific gravity of 1.030 and ketones of 80. There was no evidence for glucose urea. The patient does not have a history for diabetes. We checked a salicylate and acetaminophen with a salicylate being 0.9 which is low in the acetaminophen being 0.0 so these were not the cause of his metabolic acidosis. Patient received several liters of IV normal saline and cefepime 2 g IV after getting blood cultures. 09/17/21 03:27 a repeat of his arterial blood gas on room air showed a pH of 7.29, PCO2 of 18.2 (up from 16.7) a PO2 of 100, and a bicarbonate of 8.5 (up from 6.4). However, the patient's hemoglobin dropped from 7.8-6.4 in the 4 hours between the 2 arterial blood gases. Also of note the patient had a drop in his lactic acid from 11-3.2 after the bolus of normal saline. He denies any ingestion of methanol or ethylene glycol. He does drink hard liquor as well as beer but again has not had any ingestion in over 5 days. It is possible that he is having starvation ketosis as the cause for his positive ketones both in the urine and in the serum. His urine drug screen was negative for everything except tetrahydrocannabinol. Because of the significant drop of hemoglobin to 6.4, he was typed and crossed for 2 units of blood. Because of the reason that he drinks we started him on IV pantoprazole and octreotide. The patient is still somewhat tachycardic although he is on an esmolol drip currently at 70 mcg/kg/min with a heart rate of 109 and a blood pressure 100/58. We will continue to provide hydration including a banana bag given his alcoholism and poor nutrition. 09/17/21 04:[address] of the abdomen and pelvis without contrast shows diverticulosis in the sigmoid colon without evidence for diverticulitis, resolution of the pancreatic pseudocyst, and resolution of hydronephrosis and hydroureter on the left, however, does not demonstrate a definitive source for the rapid drop in hemoglobin as noted in the labs tonight. Patient did receive a transfusion of 2 units of packed red blood cells. We will recheck a CBC, comprehensive metabolic panel, and lactic acid at 6:45 in the morning. 09/17/21 05:02 I did discuss the case with Veronica triage nurse at [facility] who placed the patient on their hold list for when a bed becomes available. 09/17/21 07:00 care of the patient will be turned over to Dr. Webster from Dr. Adler. We are currently awaiting a possible bed for placement for further care of his anemia and metabolic acidosis with partial respiratory compensation due to excessive alcohol use and starvation ketosis. [facility] critical access bed control has been notified and is currently working on possible placement of the patient in [place]. Departure - Departure Time of Disposition: 17:48 Disposition: Admitted As Inpatient 68 Condition: Serious Clinical Impression: Metabolic acidosis with respiratory alkalosis, Alcoholic ketosis, Alcohol abuse, Severe dehydration - Discharge Information
[2021-09-16] MEDS ORDERED: Cefepime 2 GM in Sodium Chloride 0.9% 50 ML IV ONE (21:50)
[2021-09-16] MEDS ORDERED: Sodium Chloride 0.9% 10 ML Syringe FLUSH PRN (21:51)
[2021-09-16] MEDS ORDERED: Cefepime 1 GM Vial ONE (22:03)
[2021-09-16] MEDS ORDERED: Sodium Chloride 0.9% 100 ML ONE (22:06)
[2021-09-17] MEDS: Sodium Chloride 0.9% 1,000 ML IV SCH ×2 (01:00→07:40)
[2021-09-17] MEDS ORDERED: Sodium Chloride 0.9% 100 ML ONE (03:31)
[2021-09-17] MEDS ORDERED: Pantoprazole 40 MG Vial ONE (03:31)
[2021-09-17] MEDS ORDERED: Octreotide 200 MCG/ML 5 ML MDV ONE (03:32)
[2021-09-17] MEDS ORDERED: MVI, Adult with Vitamin K 10 ML, Thiamine 100 MG, Folic Acid 1 MG, Magnesium Sulfate 3 ... IV SCH ×5 (03:45)
[2021-09-17] MEDS: Octreotide 500 MCG in Sodium Chloride 0.9% 497.5 ML IV SCH ×2 (03:45→14:03)
--- NOTE | 2021-09-17 03:55 | CRLCT ---
For Patients: As a result of the 21st Century Cures Act, medical imaging exams and procedure reports are released immediately into your electronic medical record. You may view this report before your referring provider. If you have questions, please contact your health care provider. INDICATION: Rapid drop in hemoglobin. COMPARISON: Contrast enhanced CT of the abdomen and pelvis from 10/16/2017. TECHNIQUE: CT examination of the abdomen and pelvis was performed without contrast enhancement using 2 mm thick axial sections from the lung bases through the pubic symphysis. Oral contrast was not administered. Please note that all CT scans at this facility use dose modulation, iterative reconstruction, and/or weight-based dosing when appropriate to reduce radiation dose to as low as reasonably achievable. FINDINGS: In the abdomen, the liver is now low in density, representing new fatty infiltration. There is no sign of mass. The spleen, pancreas and adrenals are normal in appearance. The unenhanced kidneys are normal in appearance. The previously seen heterogeneous fluid collections located in the posterior left perinephric space and extending into the left psoas muscle have resolved, consistent with resolution of pseudocysts. The previously seen mild left hydronephrosis and left hydroureter have completely resolved. There is new minimal cholelithiasis, with 2 small dependent calcified gallstones in the gallbladder. There is no sign of gallbladder wall thickening or pericholecystic fluid. The abdominal aorta is normal in caliber with no sign of dilatation. There is no sign of retroperitoneal mass or adenopathy. The stomach, loops of small bowel, and colon in the abdomen are normal in appearance. In the pelvis, the appendix is nonvisualized, but there is no sign of an inflammatory process in the area of the appendix. The loops of small bowel in the pelvis are normal in appearance. There is new moderate mucosal thickening of the sigmoid colon consistent with a nonspecific colitis. This does not appear to be from diverticulitis, with no sign of a pericolonic inflammation. Again seen is severe sigmoid diverticulosis. The prostate has slightly decreased in size and is now mildly enlarged, rather than moderately enlarged. Normal in appearance. The urinary bladder is normal in appearance. There is no sign of pelvic or inguinal mass or adenopathy. Again seen is a small fat containing right inguinal hernia. There is no sign of free air or free fluid in the abdomen or pelvis. The lung bases are clear. The osseous structures are normal in appearance for the patient`s age. IMPRESSION: Nothing seen to explain the patient`s decreasing hemoglobin, with no sign of any intra abdominal or retroperitoneal hemorrhage. CT of the abdomen shows new fatty infiltration of the liver. Resolution of previously seen pancreatic pseudocysts posterior to the left kidney and in the left psoas muscle. New minimal cholelithiasis with no sign of acute cholecystitis. CT of the pelvis shows new moderate colitis of the sigmoid colon, nonspecific. Stable severe diverticulosis of the sigmoid colon with no sign of diverticulitis. Slight decrease in size of the prostate, now mildly enlarged. Please note that all CT scans at this facility use dose modulation, iterative reconstruction, and/or weight-based dosing when appropriate to reduce radiation dose to as low as reasonably achievable. Dictated by Nickolas Dueañs MD @ 09/17/2021 3:54:56 AM (Electronically Signed)
[2021-09-17] MEDS: Pantoprazole 80 MG in Sodium Chloride 0.9% 100 ML IV SCH ×3 (03:57→23:12)
[2021-09-17] MEDS ORDERED: MVI, Adult with Vitamin K 10 ML, Thiamine 100 MG, Folic Acid 1 MG, Magnesium Sulfate 3 ... IV ONE ×5 (08:00)
[2021-09-17] MEDS ORDERED: Pantoprazole 80 MG in Sodium Chloride 0.9% 100 ML IV SCH (13:15)
[2021-09-17] MEDS ORDERED: Calcium Gluconate 2 GM in Sodium Chloride 0.9% 100 ML IV ONE (15:45)
--- NOTE | 2021-09-17 16:22 | PCM.HP.2 ---
H&P History of Present Illness - General Date of Service: 09/17/21 Admit Problem/Dx: Admission Diagnosis/Problem Admission Diagnosis/Problem Anemia Source of Information: Patient, Provider, RN Notes Reviewed History Limitations: Reports: No Limitations - History of Present Illness Initial Comments - Free Text/Narative: Mr. Adamson is a 56-year-old gentleman who was admitted through the emergency department with severe anemia and probable colitis. He has a longstanding his tory of alcohol abuse and has been drinking heavily for quite some time. He stopped consuming alcohol about 5 days ago and also stop smoking at that time. He was not eating or drinking over the past 5 days and became extremely weak. He was brought into the emergency department for further evaluation. On initial evaluation in the emergency department he was found to have significant lactic acidosis with decrease in carbon dioxide, marked elevation in anion gap, and elevated lactic acid level. He has no history of diabetes, ketone levels were elevated, glucose levels only moderately elevated. Initial hemoglobin on CBC was 8.5 and 7.8 on arterial blood gases. After receiving IV fluids follow-up hemoglobin was obtained on blood gases again and had dropped to 6.4. He has been transfused 2 units of red blood cells. He does give a history of recent hematemesis as well as melenic appearing stools. He had stopped eating because of abdominal discomfort but states that that has now resolved. CT scan of the abdomen and pelvis did document evidence of colitis but no other significant a bnormalities were seen. Lactic acid level is normalized but he still has evidence of metabolic acidosis with elevated anion gap. He reports that he is feeling improved and has had no evidence of active bleeding during his time in the emergency department. - Related Data Allergies/Adverse Reactions: Allergies Allergy/AdvReac Type Severity Reaction Status Date / Time oxycodone Allergy Hives Verified 03/01/19 16:31 Home Medications: Home Meds Pantoprazole [ProTONIX] 40 mg PO DAILY #30 tab.cr 10/20/16 [Rx] Albuterol [Ventolin HFA] 2 puff INH BID 06/07/18 [History] Ibuprofen 400 mg PO DAILY 06/07/18 [History] Tamsulosin [Tamsulosin 24 Hr] 0.4 mg PO DAILY 06/07/18 [History] Past Medical History Other HEENT History: c/o sinus issues Respiratory History: Reports: COPD Other Respiratory History: recent stop smoking no patches on Gastrointestinal History: Reports: GERD, Jaundice, Pancreatitis Other Gastrointestinal History: hx of ulcer, "COLON INFECTION" Genitourinary History: Reports: BPH Musculoskeletal History: Reports: Fracture, Other (See Below) Other Musculoskeletal History: complete tear of right and left rotator cuff Psychiatric History: Reports: Addiction Other Psychiatric History: etoh abuse quit drinking 4-5 days ago Other Dermatologic History: cyst recent R eye - Past Surgical History GI Surgical History: Reports: None Musculoskeletal Surgical History: Reports: Shoulder Surgery Social & Family History - Family History Family Medical History: No Pertinent Family History - Tobacco Use Tobacco Use Status *Q: Former Tobacco User Used Tobacco, but Quit: Yes Month/Year Tobacco Last Used: 4-5 days ago - Caffeine Use Caffeine Use: Reports: None - Recreational Drug Use Recreational Drug Use: No - Living Situation & Occupation Living situation: Reports: , Alone Occupation: Unemployed H&P Review of Systems - Review of Systems: Review Of Systems: See Below General: Reports: Malaise, Weakness, Fatigue, Decreased Appetite. Denies: Fever, Chills HEENT: Reports: No Symptoms Pulmonary: Reports: No Symptoms Cardiovascular: Reports: No Symptoms Gastrointestinal: Reports: Anorexia, Hematemesis, Melena, Nausea, Vomiting. Denies: Difficulty Swallowing, Distension Genitourinary: Reports: No Symptoms Musculoskeletal: Reports: No Symptoms Skin: Reports: No Symptoms Psychiatric: Reports: No Symptoms Neurological: Reports: No Symptoms Hematologic/Lymphatic: Reports: No Symptoms Immunologic: Reports: No Symptoms Exam - Exam Exam: See Below - Vital Signs Vital Signs: Last Vital Signs Temp 98.3 F 09/17/21 13:13 Pulse 104 H 09/17/21 14:51 Resp 15 09/17/21 14:51 BP 138/63 09/17/21 14:51 Pulse Ox 100 09/17/21 14:51 Weight: 170 lb - Exam Quality Assessment: DVT Prophylaxis General: Alert, Oriented, Cooperative, Moderate Distress HEENT: Conjunctiva Clear, Hearing Intact, Mucosa Moist & [place], Normal Nasal Septum, Posterior Pharynx Clear, Pupils Equal Neck: Supple, Trachea Midline, +2 Carotid Pulse wo Bruit Lungs: Clear to Auscultation, Normal Respiratory Effort, Decreased Breath Sounds Cardiovascular: Regular Rate, Regular Rhythm, Normal S1, Normal S2. No: Systolic Murmur, Diastolic Murmur GI/Abdominal Exam: Soft, Non-Tender, No Organomegaly, No Distention Back Exam: Normal Inspection, Full Range of Motion Extremities: Non-Tender, No Pedal Edema Skin: Warm, Dry, Intact Neurological: Cranial Nerves Intact, Strength Equal Bilateral, Normal Speech, Normal Tone, Sensation Intact. No: Focal Deficit Neuro Extensive - Mental Status: Alert, Oriented x3, Normal Mood/Affect, Normal Cognition, Memory Intact - Patient Data Lab Results Last 24 hrs: Laboratory Results - last 24 hr 09/16/21 09/16/21 09/16/21 Range/Units 20:30 20:46 20:46 WBC 10.9 (4.5-11.0) K/uL RBC 2.86 L (4.30-5.90) M/uL Hgb 8.5 L (12.0-15.0) g/dL Hct 29.1 L (40.0-54.0) % MCV 102 H (80-98) fL MCH 30 (27-31) pg MCHC 29 L (32-36) % Plt Count 167 (150-400) K/uL Neut % (Auto) 90.6 H (36-66) % Lymph % (Auto) 3.4 L (24-44) % [place] % (Auto) 6.0 (2-6) % Eos % (Auto) 0.0 L (2-4) % Baso % (Auto) 0.0 (0-1) % PT 12.2 H (9.2-10.6) sec INR 1.2 APTT 21.1 L (21.4-31.8) sec Puncture Site ABG pH (7.350-7.450) ABG pCO2 (35.0-42.0) mmHg ABG pO2 (75.0-100.0) mmHg ABG HCO3 (22.0-26.0) mmol/L ABG Total CO2 (23.0-27.0) mmol/L ABG O2 Saturation (95.0-98.0) % ABG O2 Content (15.0-23.0) %vol ABG Base Excess mm/L ABG Hemoglobin (13.5-18.0) g/dL ABG Oxyhemoglobin % ABG Carboxyhemoglobin (0.0-1.6) % ABG Methemoglobin % Álvaro Test O2 Delivery Device Sodium (140-148) mmol/L Potassium (3.6-5.2) mmol/L Chloride (100-108) mmol/L Carbon Dioxide (21-32) mmol/L Anion Gap (5.0-14.0) mmol/L BUN (7-18) mg/dL Creatinine (0.8-1.3) mg/dL Est Cr Clr Drug Dosing mL/min Estimated GFR (MDRD) (>60) Glucose (74-106) mg/dL Lactic Acid (0.4-2.0) mmol/L Calcium (8.5-10.1) mg/dL Total Bilirubin (0.2-1.0) mg/dL AST (15-37) U/L ALT (12-78) U/L Alkaline Phosphatase (46-116) U/L Troponin I (0.000-0.056) ng/mL Total Protein (6.4-8.2) g/dL Albumin (3.4-5.0) g/dL Globulin (2.3-3.5) g/dL Albumin/Globulin Ratio (1.2-2.2) Lipase (73-393) U/L Urine Color (YELLOW) Urine Appearance (CLEAR) Urine pH (5.0-8.0) Ur Specific [place] (1.008-1.030) Urine Protein (NEGATIVE) mg/dL Urine Glucose (UA) (NEGATIVE) mg/dL Urine Ketones (NEGATIVE) mg/dL Urine Occult Blood (NEGATIVE) Urine Nitrite (NEGATIVE) Urine Bilirubin (NEGATIVE) Urine Urobilinogen (0.2-1.0) EU/dL Ur Leukocyte Esterase (NEGATIVE) Urine RBC (0-5) Urine WBC (0-5) Ur Epithelial Cells Amorphous Sediment Urine Bacteria Urine Mucus Salicylates (2.0-20.0) mg/dL Urine Opiates Screen (NEGATIVE) Ur Oxycodone Screen (NEGATIVE) Urine Methadone Screen (NEGATIVE) Ur Propoxyphene Screen (NEGATIVE) Acetaminophen (10.0-30.0) ug/mL Ur Barbiturates Screen (NEGATIVE) Ur Tricyclics Screen (NEGATIVE) Ur Phencyclidine Scrn (NEGATIVE) Ur Amphetamine Screen (NEGATIVE) U Methamphetamines Scrn (NEGATIVE) Urine MDMA Screen (NEGATIVE) U Benzodiazepines Scrn (NEGATIVE) U Cocaine Metab Screen (NEGATIVE) U Marijuana (THC) Screen (NEGATIVE) Ethyl Alcohol mg/dL Ketones (NEGATIVE) SARS CoV-2 RNA Rapid CIELO Negative Blood Type Gel Antibody Screen Crossmatch 09/16/21 09/16/21 09/16/21 Range/Units 20:46 20:46 20:46 WBC (4.5-11.0) K/uL RBC (4.30-5.90) M/uL Hgb (12.0-15.0) g/dL Hct (40.0-54.0) % MCV (80-98) fL MCH (27-31) pg MCHC (32-36) % Plt Count (150-400) K/uL Neut % (Auto) (36-66) % Lymph % (Auto) (24-44) % [place] % (Auto) (2-6) % Eos % (Auto) (2-4) % Baso % (Auto) (0-1) % PT (9.2-10.6) sec INR APTT (21.4-31.8) sec Puncture Site ABG pH (7.350-7.450) ABG pCO2 (35.0-42.0) mmHg ABG pO2 (75.0-100.0) mmHg ABG HCO3 (22.0-26.0) mmol/L ABG Total CO2 (23.0-27.0) mmol/L ABG O2 Saturation (95.0-98.0) % ABG O2 Content (15.0-23.0) %vol ABG Base Excess mm/L ABG Hemoglobin (13.5-18.0) g/dL ABG Oxyhemoglobin % ABG Carboxyhemoglobin (0.0-1.6) % ABG Methemoglobin % Álvaro Test O2 Delivery Device Sodium 133 L (140-148) mmol/L Potassium 4.6 (3.6-5.2) mmol/L Chloride 93 L (100-108) mmol/L Carbon Dioxide 8 L D (21-32) mmol/L Anion Gap 36.6 H (5.0-14.0) mmol/L BUN 13 D (7-18) mg/dL Creatinine 1.0 D (0.8-1.3) mg/dL Est Cr Clr Drug Dosing 84.45 mL/min Estimated GFR (MDRD) > 60 (>60) Glucose 216 H (74-106) mg/dL Lactic Acid 11.0 H (0.4-2.0) mmol/L Calcium 8.1 L (8.5-10.1) mg/dL Total Bilirubin 2.0 H D (0.2-1.0) mg/dL AST 194 H (15-37) U/L ALT 79 H (12-78) U/L Alkaline Phosphatase 345 H (46-116) U/L Troponin I < 0.017 (0.000-0.056) ng/mL Total Protein 6.9 (6.4-8.2) g/dL Albumin 3.2 L (3.4-5.0) g/dL Globulin 3.7 H (2.3-3.5) g/dL Albumin/Globulin Ratio 0.9 L (1.2-2.2) Lipase 163 (73-393) U/L Urine Color (YELLOW) Urine Appearance (CLEAR) Urine pH (5.0-8.0) Ur Specific [place] (1.008-1.030) Urine Protein (NEGATIVE) mg/dL Urine Glucose (UA) (NEGATIVE) mg/dL Urine Ketones (NEGATIVE) mg/dL Urine Occult Blood (NEGATIVE) Urine Nitrite (NEGATIVE) Urine Bilirubin (NEGATIVE) Urine Urobilinogen (0.2-1.0) EU/dL Ur Leukocyte Esterase (NEGATIVE) Urine RBC (0-5) Urine WBC (0-5) Ur Epithelial Cells Amorphous Sediment Urine Bacteria Urine Mucus Salicylates (2.0-20.0) mg/dL Urine Opiates Screen (NEGATIVE) Ur Oxycodone Screen (NEGATIVE) Urine Methadone Screen (NEGATIVE) Ur Propoxyphene Screen (NEGATIVE) Acetaminophen (10.0-30.0) ug/mL Ur Barbiturates Screen (NEGATIVE) Ur Tricyclics Screen (NEGATIVE) Ur Phencyclidine Scrn (NEGATIVE) Ur Amphetamine Screen (NEGATIVE) U Methamphetamines Scrn (NEGATIVE) Urine MDMA Screen (NEGATIVE) U Benzodiazepines Scrn (NEGATIVE) U Cocaine Metab Screen (NEGATIVE) U Marijuana (THC) Screen (NEGATIVE) Ethyl Alcohol 5 mg/dL Ketones (NEGATIVE) SARS CoV-2 RNA Rapid CIELO Blood Type Gel Antibody Screen Crossmatch 09/16/21 09/16/21 09/16/21 Range/Units 21:34 21:54 21:54 WBC (4.5-11.0) K/uL RBC (4.30-5.90) M/uL Hgb (12.0-15.0) g/dL Hct (40.0-54.0) % MCV (80-98) fL MCH (27-31) pg MCHC (32-36) % Plt Count (150-400) K/uL Neut % (Auto) (36-66) % Lymph % (Auto) (24-44) % [place] % (Auto) (2-6) % Eos % (Auto) (2-4) % Baso % (Auto) (0-1) % PT (9.2-10.6) sec INR APTT (21.4-31.8) sec Puncture Site Rt radial ABG pH 7.210 L (7.350-7.450) ABG pCO2 16.7 L* (35.0-42.0) mmHg ABG pO2 107.0 H (75.0-100.0) mmHg ABG HCO3 6.4 L (22.0-26.0) mmol/L ABG Total CO2 6.4 L (23.0-27.0) mmol/L ABG O2 Saturation 96.3 (95.0-98.0) % ABG O2 Content 10.4 L (15.0-23.0) %vol ABG Base Excess -20.1 mm/L ABG Hemoglobin 7.8 L (13.5-18.0) g/dL ABG Oxyhemoglobin 93.0 % ABG Carboxyhemoglobin 1.9 H (0.0-1.6) % ABG Methemoglobin 1.5 % Álvaro Test Passed O2 Delivery Device Room air Sodium (140-148) mmol/L Potassium (3.6-5.2) mmol/L Chloride (100-108) mmol/L Carbon Dioxide (21-32) mmol/L Anion Gap (5.0-14.0) mmol/L BUN (7-18) mg/dL Creatinine (0.8-1.3) mg/dL Est Cr Clr Drug Dosing mL/min Estimated GFR (MDRD) (>60) Glucose (74-106) mg/dL Lactic Acid (0.4-2.0) mmol/L Calcium (8.5-10.1) mg/dL Total Bilirubin (0.2-1.0) mg/dL AST (15-37) U/L ALT (12-78) U/L Alkaline Phosphatase (46-116) U/L Troponin I (0.000-0.056) ng/mL Total Protein (6.4-8.2) g/dL Albumin (3.4-5.0) g/dL Globulin (2.3-3.5) g/dL Albumin/Globulin Ratio (1.2-2.2) Lipase (73-393) U/L Urine Color (YELLOW) Urine Appearance (CLEAR) Urine pH (5.0-8.0) Ur Specific [place] (1.008-1.030) Urine Protein (NEGATIVE) mg/dL Urine Glucose (UA) (NEGATIVE) mg/dL Urine Ketones (NEGATIVE) mg/dL Urine Occult Blood (NEGATIVE) Urine Nitrite (NEGATIVE) Urine Bilirubin (NEGATIVE) Urine Urobilinogen (0.2-1.0) EU/dL Ur Leukocyte Esterase (NEGATIVE) Urine RBC (0-5) Urine WBC (0-5) Ur Epithelial Cells Amorphous Sediment Urine Bacteria Urine Mucus Salicylates (2.0-20.0) mg/dL Urine Opiates Screen (NEGATIVE) Ur Oxycodone Screen (NEGATIVE) Urine Methadone Screen (NEGATIVE) Ur Propoxyphene Screen (NEGATIVE) Acetaminophen 0.0 L (10.0-30.0) ug/mL Ur Barbiturates Screen (NEGATIVE) Ur Tricyclics Screen (NEGATIVE) Ur Phencyclidine Scrn (NEGATIVE) Ur Amphetamine Screen (NEGATIVE) U Methamphetamines Scrn (NEGATIVE) Urine MDMA Screen (NEGATIVE) U Benzodiazepines Scrn (NEGATIVE) U Cocaine Metab Screen (NEGATIVE) U Marijuana (THC) Screen (NEGATIVE) Ethyl Alcohol mg/dL Ketones Small H (NEGATIVE) SARS CoV-2 RNA Rapid CIELO Blood Type Gel Antibody Screen Crossmatch 09/16/21 09/16/21 09/16/21 Range/Units 21:54 23:56 23:56 WBC (4.5-11.0) K/uL RBC (4.30-5.90) M/uL Hgb (12.0-15.0) g/dL Hct (40.0-54.0) % MCV (80-98) fL MCH (27-31) pg MCHC (32-36) % Plt Count (150-400) K/uL Neut % (Auto) (36-66) % Lymph % (Auto) (24-44) % [place] % (Auto) (2-6) % Eos % (Auto) (2-4) % Baso % (Auto) (0-1) % PT (9.2-10.6) sec INR APTT (21.4-31.8) sec Puncture Site ABG pH (7.350-7.450) ABG pCO2 (35.0-42.0) mmHg ABG pO2 (75.0-100.0) mmHg ABG HCO3 (22.0-26.0) mmol/L ABG Total CO2 (23.0-27.0) mmol/L ABG O2 Saturation (95.0-98.0) % ABG O2 Content (15.0-23.0) %vol ABG Base Excess mm/L ABG Hemoglobin (13.5-18.0) g/dL ABG Oxyhemoglobin % ABG Carboxyhemoglobin (0.0-1.6) % ABG Methemoglobin % Álvaro Test O2 Delivery Device Sodium (140-148) mmol/L Potassium (3.6-5.2) mmol/L Chloride (100-108) mmol/L Carbon Dioxide (21-32) mmol/L Anion Gap (5.0-14.0) mmol/L BUN (7-18) mg/dL Creatinine (0.8-1.3) mg/dL Est Cr Clr Drug Dosing mL/min Estimated GFR (MDRD) (>60) Glucose (74-106) mg/dL Lactic Acid (0.4-2.0) mmol/L Calcium (8.5-10.1) mg/dL Total Bilirubin (0.2-1.0) mg/dL AST (15-37) U/L ALT (12-78) U/L Alkaline Phosphatase (46-116) U/L Troponin I (0.000-0.056) ng/mL Total Protein (6.4-8.2) g/dL Albumin (3.4-5.0) g/dL Globulin (2.3-3.5) g/dL Albumin/Globulin Ratio (1.2-2.2) Lipase (73-393) U/L Urine Color Yellow (YELLOW) Urine Appearance Clear (CLEAR) Urine pH 6.0 (5.0-8.0) Ur Specific [place] >= 1.030 (1.008-1.030) Urine Protein 30 H (NEGATIVE) mg/dL Urine Glucose (UA) Normal (NEGATIVE) mg/dL Urine Ketones 80 H (NEGATIVE) mg/dL Urine Occult Blood Trace-lysed H (NEGATIVE) Urine Nitrite Negative (NEGATIVE) Urine Bilirubin Negative (NEGATIVE) Urine Urobilinogen 0.2 (0.2-1.0) EU/dL Ur Leukocyte Esterase Negative (NEGATIVE) Urine RBC 0-5 (0-5) Urine WBC 0-5 (0-5) Ur Epithelial Cells Few Amorphous Sediment Not seen Urine Bacteria Rare Urine Mucus Not seen Salicylates 0.9 L (2.0-20.0) mg/dL Urine Opiates Screen Negative (NEGATIVE) Ur Oxycodone Screen Negative (NEGATIVE) Urine Methadone Screen Negative (NEGATIVE) Ur Propoxyphene Screen Negative (NEGATIVE) Acetaminophen (10.0-30.0) ug/mL Ur Barbiturates Screen Negative (NEGATIVE) Ur Tricyclics Screen Negative (NEGATIVE) Ur Phencyclidine Scrn Negative (NEGATIVE) Ur Amphetamine Screen Negative (NEGATIVE) U Methamphetamines Scrn Negative (NEGATIVE) Urine MDMA Screen Negative (NEGATIVE) U Benzodiazepines Scrn Negative (NEGATIVE) U Cocaine Metab Screen Negative (NEGATIVE) U Marijuana (THC) Screen Presumptive positive H (NEGATIVE) Ethyl Alcohol mg/dL Ketones (NEGATIVE) SARS CoV-2 RNA Rapid CIELO Blood Type Gel Antibody Screen Crossmatch 09/17/21 09/17/21 09/17/21 Range/Units 01:39 01:40 01:40 WBC (4.5-11.0) K/uL RBC (4.30-5.90) M/uL Hgb (12.0-15.0) g/dL Hct (40.0-54.0) % MCV (80-98) fL MCH (27-31) pg MCHC (32-36) % Plt Count (150-400) K/uL Neut % (Auto) (36-66) % Lymph % (Auto) (24-44) % [place] % (Auto) (2-6) % Eos % (Auto) (2-4) % Baso % (Auto) (0-1) % PT (9.2-10.6) sec INR APTT (21.4-31.8) sec Puncture Site L radial ABG pH 7.290 L (7.350-7.450) ABG pCO2 18.2 L* (35.0-42.0) mmHg ABG pO2 100.0 (75.0-100.0) mmHg ABG HCO3 8.5 L (22.0-26.0) mmol/L ABG Total CO2 8.4 L (23.0-27.0) mmol/L ABG O2 Saturation 96.5 (95.0-98.0) % ABG O2 Content 8.5 L (15.0-23.0) %vol ABG Base Excess -16.9 mm/L ABG Hemoglobin 6.4 L (13.5-18.0) g/dL ABG Oxyhemoglobin 92.5 % ABG Carboxyhemoglobin 2.6 H (0.0-1.6) % ABG Methemoglobin 1.5 % Álvaro Test Passed O2 Delivery Device Room air Sodium (140-148) mmol/L Potassium (3.6-5.2) mmol/L Chloride (100-108) mmol/L Carbon Dioxide (21-32) mmol/L Anion Gap (5.0-14.0) mmol/L BUN (7-18) mg/dL Creatinine (0.8-1.3) mg/dL Est Cr Clr Drug Dosing mL/min Estimated GFR (MDRD) (>60) Glucose (74-106) mg/dL Lactic Acid 3.2 H (0.4-2.0) mmol/L Calcium (8.5-10.1) mg/dL Total Bilirubin (0.2-1.0) mg/dL AST (15-37) U/L ALT (12-78) U/L Alkaline Phosphatase (46-116) U/L Troponin I (0.000-0.056) ng/mL Total Protein (6.4-8.2) g/dL Albumin (3.4-5.0) g/dL Globulin (2.3-3.5) g/dL Albumin/Globulin Ratio (1.2-2.2) Lipase (73-393) U/L Urine Color (YELLOW) Urine Appearance (CLEAR) Urine pH (5.0-8.0) Ur Specific [place] (1.008-1.030) Urine Protein (NEGATIVE) mg/dL Urine Glucose (UA) (NEGATIVE) mg/dL Urine Ketones (NEGATIVE) mg/dL Urine Occult Blood (NEGATIVE) Urine Nitrite (NEGATIVE) Urine Bilirubin (NEGATIVE) Urine Urobilinogen (0.2-1.0) EU/dL Ur Leukocyte Esterase (NEGATIVE) Urine RBC (0-5) Urine WBC (0-5) Ur Epithelial Cells Amorphous Sediment Urine Bacteria Urine Mucus Salicylates (2.0-20.0) mg/dL Urine Opiates Screen (NEGATIVE) Ur Oxycodone Screen (NEGATIVE) Urine Methadone Screen (NEGATIVE) Ur Propoxyphene Screen (NEGATIVE) Acetaminophen (10.0-30.0) ug/mL Ur Barbiturates Screen (NEGATIVE) Ur Tricyclics Screen (NEGATIVE) Ur Phencyclidine Scrn (NEGATIVE) Ur Amphetamine Screen (NEGATIVE) U Methamphetamines Scrn (NEGATIVE) Urine MDMA Screen (NEGATIVE) U Benzodiazepines Scrn (NEGATIVE) U Cocaine Metab Screen (NEGATIVE) U Marijuana (THC) Screen (NEGATIVE) Ethyl Alcohol mg/dL Ketones (NEGATIVE) SARS CoV-2 RNA Rapid CIELO Blood Type O POSITIVE Gel Antibody Screen Negative Crossmatch See Detail 09/17/21 09/17/21 09/17/21 Range/Units 07:10 07:10 07:10 WBC 12.0 H (4.5-11.0) K/uL RBC 3.28 L (4.30-5.90) M/uL Hgb 9.8 L (12.0-15.0) g/dL Hct 31.3 L (40.0-54.0) % MCV 95 (80-98) fL MCH 30 (27-31) pg MCHC 31 L (32-36) % Plt Count 95 L (150-400) K/uL Neut % (Auto) (36-66) % Lymph % (Auto) (24-44) % [place] % (Auto) (2-6) % Eos % (Auto) (2-4) % Baso % (Auto) (0-1) % PT (9.2-10.6) sec INR APTT (21.4-31.8) sec Puncture Site ABG pH (7.350-7.450) ABG pCO2 (35.0-42.0) mmHg ABG pO2 (75.0-100.0) mmHg ABG HCO3 (22.0-26.0) mmol/L ABG Total CO2 (23.0-27.0) mmol/L ABG O2 Saturation (95.0-98.0) % ABG O2 Content (15.0-23.0) %vol ABG Base Excess mm/L ABG Hemoglobin (13.5-18.0) g/dL ABG Oxyhemoglobin % ABG Carboxyhemoglobin (0.0-1.6) % ABG Methemoglobin % Álvaro Test O2 Delivery Device Sodium 133 L (140-148) mmol/L Potassium 4.7 (3.6-5.2) mmol/L Chloride 99 L (100-108) mmol/L Carbon Dioxide 13 L (21-32) mmol/L Anion Gap 25.7 H (5.0-14.0) mmol/L BUN 11 (7-18) mg/dL Creatinine 0.7 L (0.8-1.3) mg/dL Est Cr Clr Drug Dosing 120.64 mL/min Estimated GFR (MDRD) > 60 (>60) Glucose 113 H (74-106) mg/dL Lactic Acid 1.3 (0.4-2.0) mmol/L Calcium 6.8 L* D (8.5-10.1) mg/dL Total Bilirubin 2.7 H (0.2-1.0) mg/dL AST 186 H (15-37) U/L ALT 62 (12-78) U/L Alkaline Phosphatase 271 H (46-116) U/L Troponin I (0.000-0.056) ng/mL Total Protein 5.8 L (6.4-8.2) g/dL Albumin 2.7 L (3.4-5.0) g/dL Globulin 3.1 (2.3-3.5) g/dL Albumin/Globulin Ratio 0.9 L (1.2-2.2) Lipase (73-393) U/L Urine Color (YELLOW) Urine Appearance (CLEAR) Urine pH (5.0-8.0) Ur Specific [place] (1.008-1.030) Urine Protein (NEGATIVE) mg/dL Urine Glucose (UA) (NEGATIVE) mg/dL Urine Ketones (NEGATIVE) mg/dL Urine Occult Blood (NEGATIVE) Urine Nitrite (NEGATIVE) Urine Bilirubin (NEGATIVE) Urine Urobilinogen (0.2-1.0) EU/dL Ur Leukocyte Esterase (NEGATIVE) Urine RBC (0-5) Urine WBC (0-5) Ur Epithelial Cells Amorphous Sediment Urine Bacteria Urine Mucus Salicylates (2.0-20.0) mg/dL Urine Opiates Screen (NEGATIVE) Ur Oxycodone Screen (NEGATIVE) Urine Methadone Screen (NEGATIVE) Ur Propoxyphene Screen (NEGATIVE) Acetaminophen (10.0-30.0) ug/mL Ur Barbiturates Screen (NEGATIVE) Ur Tricyclics Screen (NEGATIVE) Ur Phencyclidine Scrn (NEGATIVE) Ur Amphetamine Screen (NEGATIVE) U Methamphetamines Scrn (NEGATIVE) Urine MDMA Screen (NEGATIVE) U Benzodiazepines Scrn (NEGATIVE) U Cocaine Metab Screen (NEGATIVE) U Marijuana (THC) Screen (NEGATIVE) Ethyl Alcohol mg/dL Ketones (NEGATIVE) SARS CoV-2 RNA Rapid CIELO Blood Type Gel Antibody Screen Crossmatch 09/17/21 09/17/21 Range/Units 15:05 15:10 WBC (4.5-11.0) K/uL RBC (4.30-5.90) M/uL Hgb 10.1 L (12.0-15.0) g/dL Hct (40.0-54.0) % MCV (80-98) fL MCH (27-31) pg MCHC (32-36) % Plt Count (150-400) K/uL Neut % (Auto) (36-66) % Lymph % (Auto) (24-44) % [place] % (Auto) (2-6) % Eos % (Auto) (2-4) % Baso % (Auto) (0-1) % PT (9.2-10.6) sec INR APTT (21.4-31.8) sec Puncture Site ABG pH (7.350-7.450) ABG pCO2 (35.0-42.0) mmHg ABG pO2 (75.0-100.0) mmHg ABG HCO3 (22.0-26.0) mmol/L ABG Total CO2 (23.0-27.0) mmol/L ABG O2 Saturation (95.0-98.0) % ABG O2 Content (15.0-23.0) %vol ABG Base Excess mm/L ABG Hemoglobin (13.5-18.0) g/dL ABG Oxyhemoglobin % ABG Carboxyhemoglobin (0.0-1.6) % ABG Methemoglobin % Álvaro Test O2 Delivery Device Sodium 134 L (140-148) mmol/L Potassium 3.2 L (3.6-5.2) mmol/L Chloride 98 L (100-108) mmol/L Carbon Dioxide 13 L (21-32) mmol/L Anion Gap 26.2 H (5.0-14.0) mmol/L BUN 7 (7-18) mg/dL Creatinine 0.6 L (0.8-1.3) mg/dL Est Cr Clr Drug Dosing 140.75 mL/min Estimated GFR (MDRD) > 60 (>60) Glucose 105 (74-106) mg/dL Lactic Acid (0.4-2.0) mmol/L Calcium 6.6 L* (8.5-10.1) mg/dL Total Bilirubin (0.2-1.0) mg/dL AST (15-37) U/L ALT (12-78) U/L Alkaline Phosphatase (46-116) U/L Troponin I (0.000-0.056) ng/mL Total Protein (6.4-8.2) g/dL Albumin (3.4-5.0) g/dL Globulin (2.3-3.5) g/dL Albumin/Globulin Ratio (1.2-2.2) Lipase (73-393) U/L Urine Color (YELLOW) Urine Appearance (CLEAR) Urine pH (5.0-8.0) Ur Specific [place] (1.008-1.030) Urine Protein (NEGATIVE) mg/dL Urine Glucose (UA) (NEGATIVE) mg/dL Urine Ketones (NEGATIVE) mg/dL Urine Occult Blood (NEGATIVE) Urine Nitrite (NEGATIVE) Urine Bilirubin (NEGATIVE) Urine Urobilinogen (0.2-1.0) EU/dL Ur Leukocyte Esterase (NEGATIVE) Urine RBC (0-5) Urine WBC (0-5) Ur Epithelial Cells Amorphous Sediment Urine Bacteria Urine Mucus Salicylates (2.0-20.0) mg/dL Urine Opiates Screen (NEGATIVE) Ur Oxycodone Screen (NEGATIVE) Urine Methadone Screen (NEGATIVE) Ur Propoxyphene Screen (NEGATIVE) Acetaminophen (10.0-30.0) ug/mL Ur Barbiturates Screen (NEGATIVE) Ur Tricyclics Screen (NEGATIVE) Ur Phencyclidine Scrn (NEGATIVE) Ur Amphetamine Screen (NEGATIVE) U Methamphetamines Scrn (NEGATIVE) Urine MDMA Screen (NEGATIVE) U Benzodiazepines Scrn (NEGATIVE) U Cocaine Metab Screen (NEGATIVE) U Marijuana (THC) Screen (NEGATIVE) Ethyl Alcohol mg/dL Ketones (NEGATIVE) SARS CoV-2 RNA Rapid CIELO Blood Type Gel Antibody Screen Crossmatch Result Diagrams: 09/17/21 15:10 09/17/21 15:05 Song Results Last 24 hrs: Microbiology 09/17/21 02:10 Stool Occult Blood (SONG) - Final Stool / Feces NEGATIVE OCCULT BLOOD REFERENCE RANGE: NEGATIVE Sepsis Event Note - Focused Exam Vital Signs: Vital Signs Temp Temp Pulse Resp BP Pulse Ox 09/17/21 14:51 104 H 15 138/63 100 09/17/21 14:04 105 H 20 139/74 96 09/17/21 13:13 98.3 F 116 H 16 134/71 100 09/17/21 11:22 113 H 25 H 137/77 96 09/17/21 10:50 61 129/77 95 09/17/21 10:17 118 H 19 137/69 99 09/17/21 07:14 98.5 F 105 H 18 125/68 100 09/17/21 06:57 98.0 F 111 H 16 128/74 100 09/17/21 06:30 98.0 F 106 H 16 130/69 100 09/17/21 06:13 98.1 F 106 H 17 130/72 100 09/17/21 05:59 98.2 F 113 H 16 129/51 L 100 09/17/21 05:43 98.0 F 115 H 19 125/69 100 09/17/21 05:28 98.0 F 113 H 19 122/70 100 09/17/21 04:50 98.4 F 117 H 19 130/75 100 09/17/21 04:35 98.2 F 108 H 16 132/82 100 *Q Meaningful Use (ADM) - VTE *Q VTE Pharmacological Contraindications *Q: Active Hemorrhage - VTE Risk Assess *Q Each Risk Factor Represents 1 Point: Age 41 - 59 years Total Score 1 Point Risk Factors: 1 Each Risk Factor Represents 2 Points: None Total Score 2 Point Risk Factors: 0 Each Risk Factor Represents 3 Points: None Total Score 3 Point Risk Factors: 0 Each Risk Factor Represents 5 Points: None Total Score 5 Point Risk Factors: 0 Venous Thromboembolism Risk Factor Score *Q: 1 Problem List Initiated/Reviewed/Updated: Yes Orders Last 24hrs: Active Orders 24 hr Category Date Time Status Patient Status Manage Transfer [TRANSFER] Routine ADT 09/17/21 15:48 Active CULTURE BLOOD [BC] Urgent Lab 09/16/21 20:25 Received CULTURE BLOOD [BC] Urgent Lab 09/16/21 21:45 Received Hemoccult [OCCULT BLOOD DIAGNOSTIC] [OP] Stat Lab 09/17/21 10:17 Ordered PATIENT RETYPE [BBK] Stat Lab 09/17/21 01:40 Results RED BLOOD CELLS LP [BBK] Stat Lab 09/17/21 01:40 Results TYPE AND SCREEN [BBK] Stat Lab 09/17/21 01:40 Results Calcium Gluconate 2 gm Med 09/17/21 15:45 Active Sodium Chloride 0.9% [Normal Saline] 100 ml IV ONETIME Esmolol HCL in Sterile Water [Esmolol HCL in Sterile Med 09/16/21 20:45 Active Water 2,500 MG/250 ML] 250 ml IV TITRATE Octreotide [SandoSTATIN] 500 mcg Med 09/17/21 13:15 Active Sodium Chloride 0.9% [Normal Saline] 497.5 ml IV Q10H Pantoprazole [ProTONIX IV] 80 mg Med 09/17/21 13:15 Active Sodium Chloride 0.9% [Normal Saline] 100 ml IV Q10H Sodium Chloride 0.9% [Normal Saline] 1,000 ml Med 09/17/21 01:00 Active IV ASDIRECTED Sodium Chloride 0.9% [Saline Flush] Med 09/16/21 21:51 Active 10 ml FLUSH ASDIRECTED PRN Blood Culture x2 Reflex Set [OM.PC] Urgent Oth 09/16/21 21:33 Ordered Saline Lock Insert [OM.PC] Routine Oth 09/16/21 21:51 Ordered Transfuse Red Blood Cells [COMM] Stat Oth 09/17/21 01:58 Ordered Resuscitation Status Routine Resus Stat 09/17/21 16:01 Ordered EKG 12 Lead [EK] Routine Ther 09/16/21 20:21 Ordered Medication Orders Esmolol HCl (Esmolol Hcl In Sterile Water 2,500 Mg/250 Ml) 250 mls @ 23.133 mls/hr IV TITRATE JODIE; Protocol Last Titration: 09/17/21 04:02 Dose: 0 mcg/kg/min, 0 mls/hr Documented by: Titration: 09/17/21 03:55 Dose: 50 mcg/kg/min, 23.133 mls/hr Documented by: Titration: 09/17/21 03:45 Dose: 60 mcg/kg/min, 27.76 mls/hr Documented by: Titration: 09/17/21 00:30 Dose: 70 mcg/kg/min, 32.387 mls/hr Documented by: Titration: 09/16/21 21:35 Dose: 65 mcg/kg/min, 30.073 mls/hr Documented by: Titration: 09/16/21 21:22 Dose: 60 mcg/kg/min, 27.76 mls/hr Documented by: Titration: 09/16/21 21:11 Dose: 55 mcg/kg/min, 25.447 mls/hr Documented by: Admin: 09/16/21 20:42 Dose: 50 mcg/kg/min, 23.133 mls/hr Documented by: DIDI Sodium Chloride (Normal Saline) 1,000 mls @ 125 mls/hr IV ASDIRECTED JODIE Last Admin: 09/17/21 07:40 Dose: 125 mls/hr Documented by: Infusion: 09/17/21 07:40 Dose: 125 mls/hr Documented by: Admin: 09/17/21 01:00 Dose: 125 mls/hr Documented by: DIDI Octreotide Acetate 500 mcg/ (Sodium Chloride) 500 mls @ 50 mls/hr IV Q10H JODIE Last Admin: 09/17/21 14:03 Dose: 50 mcg/hr, 50 mls/hr Documented by: ATIF Pantoprazole Sodium 80 mg/ (Sodium Chloride) 100 mls @ 10 mls/hr IV Q10H JODIE Last Admin: 09/17/21 13:12 Dose: 10 mls/hr Documented by: ATIF Calcium Gluconate 2 gm/ Sodium (Chloride) 120 mls @ 100 mls/hr IV ONETIME ONE Stop: 09/17/21 16:56 Last Admin: 09/17/21 16:15 Dose: 100 mls/hr Documented by: ATIF Sodium Chloride (Sodium Chloride 0.9% 10 Ml Syringe) 10 ml FLUSH ASDIRECTED PRN PRN Reason: Keep Vein Open Last Admin: 09/17/21 02:17 Dose: 10 ml Documented by: DIDI Assessment/Plan Comment:: ASSESSMENT AND PLAN ELEVATED ANION GAP METABOLIC ACIDOSIS-at least a part of this initially was secondary to lactic acidosis which appears to have now resolved. There is some persistent acidosis I suspect is secondary to dehydration and intravascular volume depletion. No evidence of significant diabetes, elevated ketones are likely secondary to dehydration. -Continue IV fluids -Follow-up labs in a.m. PROBABLE UPPER GI BLEED-history of nausea vomiting with hematemesis and melena. Associated with severe anemia. -Clear liquid diet, n.p.o. after midnight -Serial hemoglobin levels -Continue IV Protonix and octreotide started in the emergency department -Transfuse as needed -Consult Dr. Cline for EGD in a.m. ACUTE BLOOD LOSS ANEMIA-secondary to GI bleed -Management as above HISTORY OF ALCOHOL ABUSE-longstanding history of alcohol intake, will need to monitor closely for alcohol withdrawal -Alcohol withdrawal protocol PROBABLE COLITIS-evidence of colon inflammation identified on CT scan. Exam is benign and he denies symptoms of abdominal pain -IV antibiotic therapy; ciprofloxacin and metronidazole ELEVATED LIVER ENZYMES-probable underlying cirrhosis and possible component of acute alcoholic hepatitis -Follow-up liver tests in a.m. HISTORY OF PANCREATITIS HYPOCALCEMIA -Calcium gluconate 2 g IV -Follow-up calcium level in a.m. HYPOKALEMIA -IV and oral potassium levels -Follow-up potassium level in a.m. MAINTENANCE ISSUES -DVT prophylaxis; SCUDs, hold on anticoagulation with evidence of recent blee ding -GI prophylaxis; Protonix as above -Banks catheter; not indicated -Nutrition; clear liquid diet, n.p.o. after midnight -Nicotine dependence; nicotine patch CODE STATUS-FULL CODE ADMISSION STATUS-patient will be admitted to inpatient status, expect at least a 2 night hospital stay for evaluation and management of problems as outlined above. At the time of this admission I do not reasonably expected evaluation and management of this problem will require more than a 96 hour hospital stay. DISPOSITION-anticipate discharge to home after the hospital stay. PRIMARY CARE PROVIDER-Dr. Zee - Mortality Measure Prognosis:: Good
[2021-09-17] MEDS ORDERED: Ondansetron 4 MG/2 ML SDV IV PRN (16:48)
[2021-09-17] MEDS ORDERED: Acetaminophen 325 MG Tab PO PRN (16:48)
[2021-09-17] MEDS ORDERED: Sodium Chloride 0.9% 10 ML Syringe FLUSH PRN (16:48)
[2021-09-17] MEDS ORDERED: LORazepam 2 MG/ML SDV IV SCH (16:48)
[2021-09-17] MEDS ORDERED: Albuterol 0.083% 2.5 MG/3 ML Neb Soln NEB PRN (16:48)
[2021-09-17] MEDS ORDERED: MVI, Adult with Vitamin K 10 ML, Thiamine 100 MG, Folic Acid 1 MG, Magnesium Sulfate 2 ... IV ONE ×5 (16:48)
[2021-09-17] MEDS ORDERED: Sodium Chloride 0.9% 1,000 ML IV SCH (16:48)
[2021-09-17] MEDS: Nicotine 21 MG/24 Hr Patch TRDERM SCH (18:00)
[2021-09-17] MEDS: Thiamine 100 MG Tab PO SCH (18:01)
[2021-09-17] MEDS: Tamsulosin 0.4 MG Cap.ER PO SCH (18:01)
[2021-09-17] MEDS: Folic Acid 1 MG Tab PO SCH (18:01)
[2021-09-17] MEDS: Ciprofloxacin in D5W 400 MG in Premix Bag 1 BAG IV SCH ×2 (18:07)
[2021-09-17] MEDS: metroNIDAZOLE/Normal Saline 500 MG in Premix Bag 1 BAG IV SCH (19:19)
[2021-09-17] MEDS ORDERED: Potassium Chloride 20 MEQ Tab.ER PO ONE (20:01)
[2021-09-17] MEDS ORDERED: Potassium Chloride Riders 40 MEQ in Premix Bag 1 BAG IV ONE (20:02)
[2021-09-17] MEDS: Potassium Chloride 20 MEQ in Premix Bag 1 BAG IV SCH ×2 (21:38→23:13)
[2021-09-17] MEDS: LORazepam 1 MG Tab PO SCH (21:40)
[2021-09-17] MEDS: Albuterol/Ipratropium 3.0-0.5 MG/3 ML Neb Soln NEB SCH (21:41)
[2021-09-17] MEDS: Metoprolol Tartrate 25 MG Tab PO SCH (21:41)
[2021-09-18] MEDS: Octreotide 500 MCG in Sodium Chloride 0.9% 497.5 ML IV SCH (00:13)
[2021-09-18] MEDS: Albuterol 8 GM Inhaler INH SCH ×4 (00:17→20:12)
[2021-09-18] MEDS: metroNIDAZOLE/Normal Saline 500 MG in Premix Bag 1 BAG IV SCH ×3 (01:52→17:04)
[2021-09-18] MEDS: Ciprofloxacin in D5W 400 MG in Premix Bag 1 BAG IV SCH ×2 (04:58)
[2021-09-18] MEDS ORDERED: Potassium Chloride 20 MEQ in Premix Bag 2 BAG IV SCH (07:00)
[2021-09-18] MEDS: Albuterol/Ipratropium 3.0-0.5 MG/3 ML Neb Soln NEB SCH ×4 (07:00→20:01)
[2021-09-18] MEDS: Potassium Chloride 20 MEQ, Lidocaine 1% 2 ML in Sodium Chloride 0.9% 100 ML IV SCH ×2 (07:15→09:58)
[2021-09-18] MEDS ORDERED: fentaNYL 100 MCG/2 ML SDV ONE (07:18)
[2021-09-18] MEDS ORDERED: Propofol 200 MG/20 ML SDV ONE ×2 (07:18→07:55)
[2021-09-18] MEDS ORDERED: Midazolam 1 MG/ML 2 ML SDV ONE (07:18)
[2021-09-18] MEDS ORDERED: Potassium Chloride 20 MEQ Tab.ER PO ONE ×3 (08:00→18:46)
[2021-09-18] MEDS: Metoprolol Tartrate 25 MG Tab PO SCH ×2 (09:10→19:49)
[2021-09-18] MEDS: Magnesium Oxide 400 MG Tab PO SCH ×2 (09:11→20:00)
[2021-09-18] MEDS: Folic Acid 1 MG Tab PO SCH (09:11)
[2021-09-18] MEDS: Tamsulosin 0.4 MG Cap.ER PO SCH (09:11)
[2021-09-18] MEDS: Thiamine 100 MG Tab PO SCH (09:11)
[2021-09-18] MEDS: Nicotine 21 MG/24 Hr Patch TRDERM SCH (09:11)
[2021-09-18] MEDS: Magnesium Sulfate/Water 2 GM in Premix Bag 1 BAG IV SCH ×3 (09:12→20:57)
--- NOTE | 2021-09-18 10:07 | OR ---
DATE OF PROCEDURE: 09/18/2021 SURGEON: Shan Cline MD PREOPERATIVE DIAGNOSIS: Anemia. POSTOPERATIVE DIAGNOSES: Anemia associated with: 1. Gastroesophageal reflux disease with esophageal ulcers (covered with fibrinous exudate, no bleeding or old blood on GI exam). 2. Small esophageal varices. 3. Diffuse mild gastritis and proximal duodenitis. OPERATIVE PROCEDURE: Upper GI endoscopy with antral biopsies for CLOtest. ANESTHESIA: IV sedation. INDICATION FOR PROCEDURE: A 56-year-old male with known and esophageal varices presenting with anemia. He has not had any overt history of hematemesis or black or bloody stools, but to rule out the upper GI potential bleeding source, upper endoscopy with biopsies is indicated and will be performed. Potential risks including bleeding and perforation were discussed, and the patient wishes to proceed. DETAILS OF PROCEDURE: The patient was taken to the operating room and placed in a left lateral decubitus position. IV sedation was administered after which the upper GI endoscope was passed orally through the length of the esophagus into the stomach with retroflexion view of the fundus and thereafter, through the pyloric channel and then the junction of the third and fourth portions of the duodenum. Findings included normal hypopharynx, larynx, upper shaft, sphincter, and esophageal body. In the distal esophagus, the patient was noted to have no significant hiatal hernia, but did have several linear ulcers. These were covered with fibrinous exudate, but obviously would be likely recent bleeding source. These were associated with some small esophageal varices. The latter may be reduced in size from the baseline due to the octreotide infusion. The remainder of the upper GI exam showed mild diffuse gastritis and duodenitis involving the duodenal bulb. No erosions or ulcers were seen. Again, no old blood or bleeding was seen. At this point, biopsies obtained from the antrum were sent for CLOtest for H pylori. Minimal bleeding from the biopsy sites was noted and the procedure was then concluded. The patient was taken to the recovery room in satisfactory condition. At this point, we will continue medical management with proton pump inhibitors and perhaps the octreotide infusion for another day or so to allow adequate healing as the erosions were to a large extent over the course of the varices. Shan Cline MD Job #: [id number]
--- NOTE | 2021-09-18 12:47 | PCM.PN ---
- General Info Date of Service: 09/18/21 Subjective Update: Mr. Adamson has felt improved since admission, currently denies any abdominal pain and has had no nausea or vomiting. EGD performed this morning by Dr. Cline did show esophageal ulcers as well as esophageal varices, mild gastritis and duodenitis. There has been no evidence of active bleeding noted since admission. Functional Status: Reports: Tolerating Diet, Urinating - Review of Systems General: Reports: Weakness, Fatigue. Denies: Fever, Chills Pulmonary: Reports: No Symptoms Cardiovascular: Reports: No Symptoms Gastrointestinal: Reports: No Symptoms Genitourinary: Reports: No Symptoms - Patient Data Vitals - Most Recent: Last Vital Signs Temp 97.4 F 09/18/21 08:25 Pulse 97 09/18/21 10:25 Resp 13 09/18/21 10:00 BP 125/75 09/18/21 10:00 Pulse Ox 95 09/18/21 10:00 Weight - Most Recent: 169 lb I&O - Last 24 Hours: Intake & Output 09/17/21 09/18/21 09/18/21 22:59 06:59 14:59 Intake Total 3947 1450 112 Output Total 1550 1700 700 Balance 1290 -227 -357 Lab Results Last 24 Hours: Laboratory Results - last 24 hr 09/17/21 09/17/21 09/18/21 Range/Units 15:05 15:10 06:25 WBC 5.6 (4.5-11.0) K/uL RBC 3.22 L (4.30-5.90) M/uL Hgb 10.1 L 9.6 L (12.0-15.0) g/dL Hct 28.4 L (40.0-54.0) % MCV 88 (80-98) fL MCH 30 (27-31) pg MCHC 34 (32-36) % Plt Count (150-400) K/uL Neut % (Auto) 81.0 H (36-66) % Lymph % (Auto) 10.0 L (24-44) % Thomas % (Auto) 8.0 H (2-6) % Eos % (Auto) 0.0 L (2-4) % Baso % (Auto) 0.0 (0-1) % Sodium 134 L (140-148) mmol/L Potassium 3.2 L (3.6-5.2) mmol/L Chloride 98 L (100-108) mmol/L Carbon Dioxide 13 L (21-32) mmol/L Anion Gap 26.2 H (5.0-14.0) mmol/L BUN 7 (7-18) mg/dL Creatinine 0.6 L (0.8-1.3) mg/dL Est Cr Clr Drug Dosing 140.75 mL/min Estimated GFR (MDRD) > 60 (>60) Glucose 105 (74-106) mg/dL Calcium 6.6 L* (8.5-10.1) mg/dL Magnesium (1.8-2.4) mg/dL Ferritin (8-388) ng/ml Total Bilirubin (0.2-1.0) mg/dL AST (15-37) U/L ALT (12-78) U/L Alkaline Phosphatase (46-116) U/L Total Protein (6.4-8.2) g/dL Albumin (3.4-5.0) g/dL Globulin (2.3-3.5) g/dL Albumin/Globulin Ratio (1.2-2.2) Vitamin B12 (193-986) pg/ml 09/18/21 09/18/21 09/18/21 Range/Units 06:25 06:45 06:46 WBC (4.5-11.0) K/uL RBC (4.30-5.90) M/uL Hgb (12.0-15.0) g/dL Hct (40.0-54.0) % MCV (80-98) fL MCH (27-31) pg MCHC (32-36) % Plt Count (150-400) K/uL Neut % (Auto) (36-66) % Lymph % (Auto) (24-44) % Thomas % (Auto) (2-6) % Eos % (Auto) (2-4) % Baso % (Auto) (0-1) % Sodium 131 L (140-148) mmol/L Potassium 2.9 L* (3.6-5.2) mmol/L Chloride 95 L (100-108) mmol/L Carbon Dioxide 19 L (21-32) mmol/L Anion Gap 19.9 H (5.0-14.0) mmol/L BUN 4 L (7-18) mg/dL Creatinine 0.6 L (0.8-1.3) mg/dL Est Cr Clr Drug Dosing TNP mL/min Estimated GFR (MDRD) > 60 (>60) Glucose 153 H (74-106) mg/dL Calcium 7.2 L (8.5-10.1) mg/dL Magnesium 0.9 L D (1.8-2.4) mg/dL Ferritin 0 L (8-388) ng/ml Total Bilirubin 1.5 H (0.2-1.0) mg/dL AST 160 H (15-37) U/L ALT 53 (12-78) U/L Alkaline Phosphatase 216 H (46-116) U/L Total Protein 5.4 L (6.4-8.2) g/dL Albumin 2.4 L (3.4-5.0) g/dL Globulin 3.0 (2.3-3.5) g/dL Albumin/Globulin Ratio 0.8 L (1.2-2.2) Vitamin B12 71 L (193-986) pg/ml Song Results Last 24 Hours: Microbiology 09/17/21 23:08 Stool Occult Blood (SONG) - Final Stool / Feces - Stool, Formed 09/16/21 20:25 Aerobic Blood Culture - Preliminary Blood - Arm, Left NO GROWTH AFTER 1 DAY Anaerobic Blood Culture - Preliminary NO GROWTH AFTER 1 DAY 09/16/21 21:45 Aerobic Blood Culture - Preliminary Blood - Arterial Line - Abg NO GROWTH AFTER 1 DAY Anaerobic Blood Culture - Preliminary NO GROWTH AFTER 1 DAY Med Orders - Current: Current Medications Acetaminophen (Acetaminophen 325 Mg Tab) 650 mg PO Q4H PRN PRN Reason: Pain (Mild 1-3)/fever Albuterol (Albuterol 0.083% 2.5 Mg/3 Ml Neb Soln) 2.5 mg NEB Q4H PRN PRN Reason: Dyspnea Last Admin: 09/17/21 19:39 Dose: 2.5 mg Documented by: Albuterol (Albuterol 8 Gm Inhaler) 0 gm INH BIDRT [facility] Last Admin: 09/18/21 09:10 Dose: 1 inh Documented by: Albuterol/Ipratropium (Albuterol/Ipratropium 3.0-0.5 Mg/3 Ml Neb Soln) 3 ml NEB QIDRT [facility] Last Admin: 09/18/21 10:24 Dose: 3 ml Documented by: Folic Acid (Folic Acid 1 Mg Tab) 1 mg PO DAILY [facility] Last Admin: 09/18/21 09:11 Dose: 1 mg Documented by: Ciprofloxacin/Dextrose 400 mg/ (Premix) 200 mls @ 200 mls/hr IV Q12H [facility] Last Admin: 09/18/21 04:58 Dose: 200 mls/hr Documented by: Metronidazole 500 mg/ Premix 100 mls @ 100 mls/hr IV Q8H [facility] Last Admin: 09/18/21 10:40 Dose: 100 mls/hr Documented by: Magnesium Sulfate 2 gm/ Premix 50 mls @ 25 mls/hr IV Q6H [facility] Stop: 09/18/21 22:59 Last Admin: 09/18/21 09:12 Dose: 25 mls/hr Documented by: Lorazepam (Lorazepam 2 Mg/Ml Sdv) 0 mg IV ASDIRECTED [facility]; Protocol Lorazepam (Lorazepam 1 Mg Tab) 0 mg PO ASDIRECTED [facility]; Protocol Last Admin: 09/17/21 21:40 Dose: 1 mg Documented by: Magnesium Oxide (Magnesium Oxide 400 Mg Tab) 400 mg PO BID [facility] Last Admin: 09/18/21 09:11 Dose: 400 mg Documented by: Metoprolol Tartrate (Metoprolol Tartrate 25 Mg Tab) 25 mg PO Q12H [facility] Last Admin: 09/18/21 09:10 Dose: 25 mg Documented by: Nicotine (Nicotine 21 Mg/24 Hr Patch) 21 mg TRDERM DAILY [facility] Last Admin: 09/18/21 09:11 Dose: 21 mg Documented by: Ondansetron HCl (Ondansetron 4 Mg/2 Ml Sdv) 4 mg IV Q4H PRN PRN Reason: Nausea/Vomiting Pantoprazole Sodium ([facility] 40 Mg Tab.Cr) [facility] Potassium Chloride (Potassium Chloride 20 Meq Tab.Er) 40 meq PO ONETIME ONE Stop: 09/18/21 12:37 Sodium Chloride (Sodium Chloride 0.9% 10 Ml Syringe) 10 ml FLUSH ASDIRECTED PRN PRN Reason: Keep Vein Open Tamsulosin HCl (Tamsulosin 0.4 Mg Cap.Er) 0.4 mg PO DAILY [facility] Last Admin: 09/18/21 09:11 Dose: 0.4 mg Documented by: Thiamine HCl (Thiamine 100 Mg Tab) 100 mg PO DAILY [facility] Last Admin: 09/18/21 09:11 Dose: 100 mg Documented by: Discontinued Medications Adenosine (Adenosine 6 Mg/2 Ml Sdv) 12 mg IVPUSH NOW ONE Stop: 09/16/21 20:22 Last Admin: 09/16/21 20:30 Dose: 12 mg Documented by: Adenosine (Adenosine 6 Mg/2 Ml Sdv) Confirm Administered Dose 12 mg .ROUTE .STK- MED ONE Stop: 09/16/21 20:22 Last Admin: 09/17/21 08:08 Dose: Not Given Documented by: Albuterol (Albuterol 8 Gm Inhaler) 0 gm INH BID [facility] Last Admin: 09/18/21 01:50 Dose: Not Given Documented by: Cefepime HCl (Cefepime 1 Gm Vial) Confirm Administered Dose 2 gm .ROUTE .STK-MED ONE Stop: 09/16/21 22:04 Last Admin: 09/16/21 22:14 Dose: Not Given Documented by: Fentanyl (Fentanyl 100 Mcg/2 Ml Sdv) Confirm Administered Dose 100 mcg .ROUTE .STK-MED ONE Stop: 09/18/21 07:19 Sodium Chloride (Normal Saline) 1,000 mls @ 999 mls/hr IV ASDIRECTED [facility] Last Admin: 09/16/21 20:39 Dose: 999 mls/hr Documented by: Esmolol HCl (Esmolol Hcl In Sterile Water 2,500 Mg/250 Ml) 250 mls @ 23.133 mls/hr IV TITRATE [facility]; Protocol Last Titration: 09/17/21 04:02 Dose: 0 mcg/kg/min, 0 mls/hr Documented by: Sodium Chloride (Normal Saline) 1,000 mls @ 999 mls/hr IV ASDIRECTED [facility] Last Admin: 09/16/21 22:01 Dose: 999 mls/hr Documented by: Cefepime HCl 2 gm/ Sodium (Chloride) 50 mls @ 100 mls/hr IV ONETIME ONE Stop: 09/16/21 22:19 Last Admin: 09/16/21 22:07 Dose: 100 mls/hr Documented by: Sodium Chloride (Normal Saline) Confirm Administered Dose 100 mls @ as directed .ROUTE .STK-MED ONE Stop: 09/16/21 22:07 Last Admin: 09/16/21 22:14 Dose: Not Given Documented by: Sodium Chloride (Normal Saline) 1,000 mls @ 125 mls/hr IV ASDIRECTED [facility] Last Admin: 09/17/21 07:40 Dose: 125 mls/hr Documented by: Octreotide Acetate 500 mcg/ (Sodium Chloride) 500 mls @ 50 mls/hr IV Q10H [facility] Last Admin: 09/17/21 03:45 Dose: 50 mcg/hr, 50 mls/hr Documented by: Pantoprazole Sodium 80 mg/ (Sodium Chloride) 100 mls @ 10 mls/hr IV Q10H [facility] Last Admin: 09/17/21 03:57 Dose: 10 mls/hr Documented by: Sodium Chloride (Normal Saline) Confirm Administered Dose 100 mls @ as directed .ROUTE .K-MED ONE Stop: 09/17/21 03:32 Last Admin: 09/17/21 05:57 Dose: Not Given Documented by: Multivitamins/Minerals 10 ml/Thiamine HCl 100 mg/ Folic Acid 1 mg/ Magnesium Sulfate 3 gm/ Sodium Chloride 1,017.2 mls @ 500 mls/hr IV ASDIRECTED ONE Stop: 09/17/21 10:02 Last Admin: 09/17/21 08:11 Dose: 500 mls/hr Documented by: Octreotide Acetate 500 mcg/ (Sodium Chloride) 500 mls @ 50 mls/hr IV Q10H [facility] Last Admin: 09/18/21 00:13 Dose: 50 mcg/hr, 50 mls/hr Documented by: Pantoprazole Sodium 80 mg/ (Sodium Chloride) 100 mls @ 10 mls/hr IV Q10H [facility] Last Admin: 09/17/21 23:12 Dose: 10 mls/hr Documented by: Calcium Gluconate 2 gm/ Sodium (Chloride) 120 mls @ 100 mls/hr IV ONETIME ONE Stop: 09/17/21 16:56 Last Admin: 09/17/21 16:15 Dose: 100 mls/hr Documented by: Sodium Chloride (Normal Saline) 1,000 mls @ 125 mls/hr IV ASDIRECTED [facility] Multivitamins/Minerals 10 ml/Thiamine HCl 100 mg/ Folic Acid 1 mg/ Magnesium Sulfate 2 gm/ Sodium Chloride 1,015.2 mls @ 100 mls/hr IV ONETIME ONE Stop: 09/18/21 02:57 Last Admin: 09/17/21 18:17 Dose: Not Given Documented by: Potassium Chloride 40 meq/ (Premix) 100 mls @ 25 mls/hr IV ONETIME ONE Stop: 09/18/21 00:01 Potassium Chloride 20 meq/ (Premix) 0 mls @ 50 mls/hr IV Q2H [facility] Stop: 09/17/21 23:01 Last Admin: 09/17/21 23:13 Dose: 50 mls/hr Documented by: Potassium Chloride 20 meq/Lidocaine HCl 2 ml/ Sodium Chloride 112 mls @ 56 mls/hr IV Q2H [facility] Stop: 09/18/21 11:14 Last Admin: 09/18/21 09:58 Dose: 56 mls/hr Documented by: Lidocaine HCl (Lidocaine 1% 5 Ml Sdv) 5 ml INJECT ONETIME ONE Stop: 09/17/21 20:59 Last Admin: 09/17/21 21:40 Dose: 5 ml Documented by: Midazolam HCl (Midazolam 1 Mg/Ml 2 Ml Sdv) Confirm Administered Dose 2 mg .ROUTE .STK-MED ONE Stop: 09/18/21 07:19 Octreotide Acetate (Octreotide 200 Mcg/Ml 5 Ml Mdv) Confirm Administered Dose 1,000 mcg .ROUTE .STK-MED ONE Stop: 09/17/21 03:33 Last Admin: 09/17/21 05:57 Dose: Not Given Documented by: Pantoprazole Sodium (Pantoprazole 40 Mg Vial) Confirm Administered Dose 80 mg .ROUTE .STK-MED ONE Stop: 09/17/21 03:32 Last Admin: 09/17/21 05:57 Dose: Not Given Documented by: Potassium Chloride (Potassium Chloride 20 Meq Tab.Er) 40 meq PO ONETIME ONE Stop: 09/17/21 20:02 Last Admin: 09/17/21 21:40 Dose: 40 meq Documented by: Potassium Chloride (Potassium Chloride 20 Meq Tab.Er) 40 meq PO ONETIME ONE Stop: 09/18/21 08:01 Last Admin: 09/18/21 09:10 Dose: 40 meq Documented by: Propofol (Propofol 200 Mg/20 Ml Sdv) Confirm Administered Dose 200 mg .ROUTE .STK-MED ONE Stop: 09/18/21 07:19 Propofol (Propofol 200 Mg/20 Ml Sdv) Confirm Administered Dose 200 mg .ROUTE .ST K-MED ONE Stop: 09/18/21 07:56 Sodium Chloride (Sodium Chloride 0.9% 10 Ml Syringe) 10 ml FLUSH ASDIRECTED PRN PRN Reason: Keep Vein Open Last Admin: 09/17/21 02:17 Dose: 10 ml Documented by: - Exam Quality Assessment: DVT Prophylaxis General: Alert, Oriented, Cooperative, Mild Distress Lungs: Clear to Auscultation, Normal Respiratory Effort, Decreased Breath Sounds Cardiovascular: Regular Rate, Regular Rhythm, No Murmurs GI/Abdominal Exam: Soft, Non-Tender, No Organomegaly, No Distention Extremities: Non-Tender, No Pedal Edema - Patient Data Lab Results Last 24 hrs: Laboratory Results - last 24 hr 09/17/21 09/17/21 09/18/21 Range/Units 15:05 15:10 06:25 WBC 5.6 (4.5-11.0) K/uL RBC 3.22 L (4.30-5.90) M/uL Hgb 10.1 L 9.6 L (12.0-15.0) g/dL Hct 28.4 L (40.0-54.0) % MCV 88 (80-98) fL MCH 30 (27-31) pg MCHC 34 (32-36) % Plt Count (150-400) K/uL Neut % (Auto) 81.0 H (36-66) % Lymph % (Auto) 10.0 L (24-44) % Thomas % (Auto) 8.0 H (2-6) % Eos % (Auto) 0.0 L (2-4) % Baso % (Auto) 0.0 (0-1) % Sodium 134 L (140-148) mmol/L Potassium 3.2 L (3.6-5.2) mmol/L Chloride 98 L (100-108) mmol/L Carbon Dioxide 13 L (21-32) mmol/L Anion Gap 26.2 H (5.0-14.0) mmol/L BUN 7 (7-18) mg/dL Creatinine 0.6 L (0.8-1.3) mg/dL Est Cr Clr Drug Dosing 140.75 mL/min Estimated GFR (MDRD) > 60 (>60) Glucose 105 (74-106) mg/dL Calcium 6.6 L* (8.5-10.1) mg/dL Magnesium (1.8-2.4) mg/dL Ferritin (8-388) ng/ml Total Bilirubin (0.2-1.0) mg/dL AST (15-37) U/L ALT (12-78) U/L Alkaline Phosphatase (46-116) U/L Total Protein (6.4-8.2) g/dL Albumin (3.4-5.0) g/dL Globulin (2.3-3.5) g/dL Albumin/Globulin Ratio (1.2-2.2) Vitamin B12 (193-986) pg/ml 09/18/21 09/18/21 09/18/21 Range/Units 06:25 06:45 06:46 WBC (4.5-11.0) K/uL RBC (4.30-5.90) M/uL Hgb (12.0-15.0) g/dL Hct (40.0-54.0) % MCV (80-98) fL MCH (27-31) pg MCHC (32-36) % Plt Count (150-400) K/uL Neut % (Auto) (36-66) % Lymph % (Auto) (24-44) % Thomas % (Auto) (2-6) % Eos % (Auto) (2-4) % Baso % (Auto) (0-1) % Sodium 131 L (140-148) mmol/L Potassium 2.9 L* (3.6-5.2) mmol/L Chloride 95 L (100-108) mmol/L Carbon Dioxide 19 L (21-32) mmol/L Anion Gap 19.9 H (5.0-14.0) mmol/L BUN 4 L (7-18) mg/dL Creatinine 0.6 L (0.8-1.3) mg/dL Est Cr Clr Drug Dosing TNP mL/min Estimated GFR (MDRD) > 60 (>60) Glucose 153 H (74-106) mg/dL Calcium 7.2 L (8.5-10.1) mg/dL Magnesium 0.9 L D (1.8-2.4) mg/dL Ferritin 0 L (8-388) ng/ml Total Bilirubin 1.5 H (0.2-1.0) mg/dL AST 160 H (15-37) U/L ALT 53 (12-78) U/L Alkaline Phosphatase 216 H (46-116) U/L Total Protein 5.4 L (6.4-8.2) g/dL Albumin 2.4 L (3.4-5.0) g/dL Globulin 3.0 (2.3-3.5) g/dL Albumin/Globulin Ratio 0.8 L (1.2-2.2) Vitamin B12 71 L (193-986) pg/ml Result Diagrams: 09/18/21 06:25 09/18/21 06:25 Song Results Last 24 hrs: Microbiology 09/17/21 23:08 Stool Occult Blood (SONG) - Final Stool / Feces - Stool, Formed 09/16/21 20:25 Aerobic Blood Culture - Preliminary Blood - Arm, Left NO GROWTH AFTER 1 DAY Anaerobic Blood Culture - Preliminary NO GROWTH AFTER 1 DAY 09/16/21 21:45 Aerobic Blood Culture - Preliminary Blood - Arterial Line - Abg NO GROWTH AFTER 1 DAY Anaerobic Blood Culture - Preliminary NO GROWTH AFTER 1 DAY Sepsis Event Note - Evaluation Sepsis Screening Result: No Definite Risk - Focused Exam Vital Signs: Vital Signs Temp Pulse Pulse Resp BP BP Pulse Ox 09/18/21 10:25 97 09/18/21 10:00 13 125/75 95 09/18/21 09:30 13 142/79 H 95 09/18/21 09:15 12 141/56 H 98 09/18/21 09:10 109 H 133/66 09/18/21 08:56 12 127/65 98 09/18/21 08:45 14 122/78 98 09/18/21 08:25 97.4 F 12 121/49 L 97 09/18/21 08:10 97.7 F 105 H 18 131/59 L 99 09/18/21 08:05 112 H 16 109/70 99 09/18/21 08:00 122 H 14 100/56 L 99 09/18/21 07:55 97.0 F 125 H 18 95/64 98 09/18/21 07:50 111 H 18 82/52 L 100 09/18/21 06:00 87 12 123/64 100 09/18/21 05:00 96 13 141/72 H 100 09/18/21 04:00 98.9 F 96 13 131/75 99 09/18/21 03:00 96 15 131/74 100 09/18/21 01:00 98.9 F 91 15 117/63 98 - Problem List Review Problem List Initiated/Reviewed/Updated: Yes - My Orders Last 24 Hours: My Active Orders 09/17/21 16:01 Resuscitation Status Routine 09/17/21 16:48 Acetaminophen [TylenoL] 650 mg PO Q4H PRN Albuterol [Proventil Neb Soln] 2.5 mg NEB Q4H PRN Folic Acid 1 mg PO DAILY LORazepam [Ativan] See Protocol IV ASDIRECTED LORazepam [Ativan] See Protocol PO ASDIRECTED Nicotine [Habitrol] 21 mg TRDERM DAILY Ondansetron [Zofran] 4 mg IV Q4H PRN Sodium Chloride 0.9% [Saline Flush] 10 ml FLUSH ASDIRECTED PRN Tamsulosin [Flomax] 0.4 mg PO DAILY Thiamine [Vitamin B-1] 100 mg PO DAILY 09/17/21 16:48 Patient Status [ADT] Routine Ambulate [RC] QID Antiembolic Devices [RC] .Routine CIWAA Assessment [RC] Q4H Cardiac Monitoring [RC] Q6H Height and Weight [RC] DAILY Intake and Output [RC] QSHIFT Notify Provider Vital Signs [RC] ASDIRECTED Notify Provider [RC] PRN Oxygen Therapy [RC] PRN Peripheral IV Care [RC] Q12H RT Aerosol Therapy [RC] ASDIRECTED RT Post Treatment Assessment [RC] Click to Edit Up With Assistance [RC] ASDIRECTED Up to Chair [RC] QID Vital Signs [RC] Q2H Consult to Physician [CONS] Routine Peripheral IV Insertion Adult [OM.PC] Routine Sequential Compression Device [OM.PC] Per Unit Routine VTE Pharmacological Contraindications [AST] Per Unit Routine 09/17/21 17:00 Ciprofloxacin in D5W [Cipro in D5W 400 MG/200 ML] 400 mg Premix Bag 1 bag IV Q12H 09/17/21 18:00 metroNIDAZOLE/Normal Saline [Flagyl in NS 500 MG/100 ML] 500 mg Premix Bag 1 bag IV Q8H 09/17/21 20:00 Metoprolol Tartrate [Lopressor] 25 mg PO Q12H 09/17/21 21:00 Albuterol/Ipratropium [DuoNeb 3.0-0.5 MG/3 ML] 3 ml NEB QIDRT 09/18/21 08:00 Albuterol [Ventolin HFA] 0 gm INH BIDRT 09/18/21 09:00 Magnesium Oxide 400 mg PO BID Magnesium Sulfate/Water [Magnesium Sulfate in Water 2 GM/50 ML] 2 gm Premix Bag 1 bag IV Q6H 09/18/21 12:36 Potassium Chloride [Klor-Con M20] 40 meq PO ONETIME ONE 09/18/21 12:40 Convert IV to Saline Lock [OM.PC] Routine 09/18/21 16:30 Pantoprazole [ProTONIX] 40 mg PO BIDAC 09/18/21 17:00 POTASSIUM,K [CHEM] Stat 09/19/21 05:00 CBC WITH AUTO DIFF [HEME] Timed COMPREHENSIVE METABOLIC PN,CMP [CHEM] Timed MAGNESIUM [CHEM] Timed - Plan Plan:: ASSESSMENT AND PLAN ELEVATED ANION GAP METABOLIC ACIDOSIS-not totally resolved but significantly improved since initial presentation to the emergency department -Continue IV fluids -Follow-up labs in a.m. UPPER GI BLEED-esophageal ulcers noted on EGD likely source of recent bleeding. He was also noted to have esophageal varices, mild gastritis, and mild duodenitis -Regular diet -Serial hemoglobin levels -Protonix 40 mg p.o. twice daily -Transfuse as needed -Surgical follow-up per Dr. Cline ACUTE BLOOD LOSS ANEMIA-secondary to GI bleed -Management as above HISTORY OF ALCOHOL ABUSE-longstanding history of alcohol intake, will need to monitor closely for alcohol withdrawal -Alcohol withdrawal protocol PROBABLE COLITIS-evidence of colon inflammation identified on CT scan. Exam is benign and he denies symptoms of abdominal pain -IV antibiotic therapy; ciprofloxacin and metronidazole ELEVATED LIVER ENZYMES-likely related to recent alcohol use -Follow-up liver tests in a.m. HISTORY OF PANCREATITIS HYPOCALCEMIA-improved following calcium replacement -Follow-up calcium level in a.m. HYPOKALEMIA -IV and oral potassium replacement -Follow-up potassium level this afternoon and in a.m. MAINTENANCE ISSUES -DVT prophylaxis; SCUDs, hold on anticoagulation with evidence of recent bleeding -GI prophylaxis; Protonix as above -Banks catheter; not indicated -Nutrition; regular diet -Nicotine dependence; nicotine patch CODE STATUS-FULL CODE ADMISSION STATUS-patient will be admitted to inpatient status, expect at least a 2 night hospital stay for evaluation and management of problems as outlined abov e. At the time of this admission I do not reasonably expected evaluation and management of this problem will require more than a 96 hour hospital stay. DISPOSITION-anticipate discharge to home after the hospital stay. PRIMARY CARE PROVIDER-Dr. Zee
[2021-09-18] MEDS: LORazepam 1 MG Tab PO SCH ×5 (13:27→22:17)
[2021-09-18] MEDS ORDERED: Doxycycline 100 MG in Sodium Chloride 0.9% 100 ML IV SCH (14:30)
[2021-09-18] MEDS: cefTRIAXone 1 GM in Sodium Chloride 0.9% 50 ML IV SCH (14:57)
[2021-09-18] MEDS: Pantoprazole 40 MG Tab.CR PO SCH (15:38)
[2021-09-19] MEDS: metroNIDAZOLE/Normal Saline 500 MG in Premix Bag 1 BAG IV SCH ×3 (02:20→17:30)
[2021-09-19] MEDS: LORazepam 1 MG Tab PO SCH ×4 (02:43→20:20)
[2021-09-19] MEDS: Albuterol/Ipratropium 3.0-0.5 MG/3 ML Neb Soln NEB SCH ×4 (07:08→20:15)
[2021-09-19] MEDS: Pantoprazole 40 MG Tab.CR PO SCH ×2 (07:52→16:33)
[2021-09-19] MEDS: Albuterol 8 GM Inhaler INH SCH ×2 (08:08→20:38)
[2021-09-19] MEDS: Nicotine 21 MG/24 Hr Patch TRDERM SCH (08:09)
[2021-09-19] MEDS: Metoprolol Tartrate 25 MG Tab PO SCH ×2 (08:11→20:14)
[2021-09-19] MEDS: Thiamine 100 MG Tab PO SCH (08:12)
[2021-09-19] MEDS: Tamsulosin 0.4 MG Cap.ER PO SCH (08:12)
[2021-09-19] MEDS: Magnesium Oxide 400 MG Tab PO SCH ×2 (08:12→20:14)
[2021-09-19] MEDS: Folic Acid 1 MG Tab PO SCH (08:12)
--- NOTE | 2021-09-19 09:44 | PCM.PN ---
- General Info Date of Service: 09/19/21 Subjective Update: No acute events overnight. Patient still has mild evidence for alcohol withdrawal including mild tremor. We did discuss alcohol use today. He does not have much interest in treatment. He is hoping that cutting down will be satisfactory. No interest in quitting smoking. No significant abdominal pain or nausea. Tolerating a regular diet. Hemoglobin has been stable with no more evidence for bleeding. He is quite weak but otherwise seems to be doing okay. Functional Status: Reports: Pain Controlled, Tolerating Diet - Review of Systems General: Reports: Weakness - Patient Data Vitals - Most Recent: Last Vital Signs Temp 37.1 C 09/19/21 08:00 Pulse 109 H 09/19/21 08:11 Resp 15 09/19/21 08:00 BP 130/80 09/19/21 08:11 Pulse Ox 94 L 09/19/21 08:00 Weight - Most Recent: 76.657 kg I&O - Last 24 Hours: Intake & Output 09/18/21 09/19/21 09/19/21 22:59 06:59 14:59 Intake Total 460 270 Output Total 550 500 400 Balance -90 -230 -400 Lab Results Last 24 Hours: Laboratory Results - last 24 hr 09/18/21 09/18/21 09/19/21 Range/Units 16:55 17:00 05:37 WBC 5.1 (4.5-11.0) K/uL RBC 3.33 L (4.30-5.90) M/uL Hgb 9.5 L 9.6 L (12.0-15.0) g/dL Hct 29.0 L (40.0-54.0) % MCV 87 (80-98) fL MCH 29 (27-31) pg MCHC 33 (32-36) % Plt Count 93 L (150-400) K/uL Neut % (Auto) 75.0 H (36-66) % Lymph % (Auto) 16.0 L (24-44) % [place]isher % (Auto) 8.0 H (2-6) % Eos % (Auto) 0.0 L (2-4) % Baso % (Auto) 0.0 (0-1) % Sodium (140-148) mmol/L Potassium 3.5 L (3.6-5.2) mmol/L Chloride (100-108) mmol/L Carbon Dioxide (21-32) mmol/L Anion Gap (5.0-14.0) mmol/L BUN (7-18) mg/dL Creatinine (0.8-1.3) mg/dL Est Cr Clr Drug Dosing mL/min Estimated GFR (MDRD) (>60) BUN/Creatinine Ratio Glucose (74-106) mg/dL Calcium (8.5-10.1) mg/dL Magnesium (1.8-2.4) mg/dL Total Bilirubin (0.2-1.0) mg/dL AST (15-37) U/L ALT (12-78) U/L Alkaline Phosphatase (46-116) U/L Total Protein (6.4-8.2) g/dL Albumin (3.4-5.0) g/dL Globulin (2.3-3.5) g/dL Albumin/Globulin Ratio (1.2-2.2) 09/19/21 Range/Units 05:37 WBC (4.5-11.0) K/uL RBC (4.30-5.90) M/uL Hgb (12.0-15.0) g/dL Hct (40.0-54.0) % MCV (80-98) fL MCH (27-31) pg MCHC (32-36) % Plt Count (150-400) K/uL Neut % (Auto) (36-66) % Lymph % (Auto) (24-44) % [place] % (Auto) (2-6) % Eos % (Auto) (2-4) % Baso % (Auto) (0-1) % Sodium 132 L (140-148) mmol/L Potassium 3.8 (3.6-5.2) mmol/L Chloride 97 L (100-108) mmol/L Carbon Dioxide 25 (21-32) mmol/L Anion Gap 13.8 (5.0-14.0) mmol/L BUN (7-18) mg/dL Creatinine 0.5 L (0.8-1.3) mg/dL Est Cr Clr Drug Dosing 168.89 mL/min Estimated GFR (MDRD) > 60 (>60) BUN/Creatinine Ratio Not Reportable Glucose 120 H (74-106) mg/dL Calcium 8.1 L (8.5-10.1) mg/dL Magnesium 1.9 D (1.8-2.4) mg/dL Total Bilirubin 1.3 H (0.2-1.0) mg/dL AST 199 H (15-37) U/L ALT 83 H (12-78) U/L Alkaline Phosphatase 262 H (46-116) U/L Total Protein 5.7 L (6.4-8.2) g/dL Albumin 2.7 L (3.4-5.0) g/dL Globulin 3.0 (2.3-3.5) g/dL Albumin/Globulin Ratio 0.9 L (1.2-2.2) Song Results Last 24 Hours: Microbiology 09/18/21 08:05 CLOtest - Final Stomach NEGATIVE CLOTEST REFERENCE RANGE: NEGATIVE 09/16/21 20:25 Aerobic Blood Culture - Preliminary Blood - Arm, Left NO GROWTH AFTER 2 DAYS Anaerobic Blood Culture - Preliminary NO GROWTH AFTER 2 DAYS 09/16/21 21:45 Aerobic Blood Culture - Preliminary Blood - Arterial Line - Abg NO GROWTH AFTER 2 DAYS Anaerobic Blood Culture - Preliminary NO GROWTH AFTER 2 DAYS Med Orders - Current: Current Medications Acetaminophen (Acetaminophen 325 Mg Tab) 650 mg PO Q4H PRN PRN Reason: Pain (Mild 1-3)/fever Albuterol (Albuterol 0.083% 2.5 Mg/3 Ml Neb Soln) 2.5 mg NEB Q4H PRN PRN Reason: Dyspnea Last Admin: 09/17/21 19:39 Dose: 2.5 mg Documented by: Albuterol (Albuterol 8 Gm Inhaler) 0 gm INH BIDRT [facility] Last Admin: 09/19/21 08:08 Dose: 2 inh Documented by: Albuterol/Ipratropium (Albuterol/Ipratropium 3.0-0.5 Mg/3 Ml Neb Soln) 3 ml NEB QIDRT [facility] Last Admin: 09/19/21 07:08 Dose: 3 ml Documented by: Cyanocobalamin (Cyanocobalamin (Vitamin B12) 1,000 Mcg Tab) 1,000 mcg PO DAILY [facility] Folic Acid (Folic Acid 1 Mg Tab) 1 mg PO DAILY [facility] Last Admin: 09/19/21 08:12 Dose: 1 mg Documented by: Metronidazole 500 mg/ Premix 100 mls @ 100 mls/hr IV Q8H [facility] Last Admin: 09/19/21 02:20 Dose: 100 mls/hr Documented by: Ceftriaxone Sodium 1 gm/ (Sodium Chloride) 50 mls @ 100 mls/hr IV Q24H [facility] Last Admin: 09/18/21 14:57 Dose: 100 mls/hr Documented by: Lorazepam (Lorazepam 2 Mg/Ml Sdv) 0 mg IV ASDIRECTED [facility]; Protocol Lorazepam (Lorazepam 1 Mg Tab) 0 mg PO ASDIRECTED [facility]; Protocol Last Admin: 09/19/21 08:11 Dose: 1 mg Documented by: Magnesium Oxide (Magnesium Oxide 400 Mg Tab) 400 mg PO BID [facility] Last Admin: 09/19/21 08:12 Dose: 400 mg Documented by: Metoprolol Tartrate (Metoprolol Tartrate 25 Mg Tab) 25 mg PO Q12H [facility] Last Admin: 09/19/21 08:11 Dose: 25 mg Documented by: Nicotine (Nicotine 21 Mg/24 Hr Patch) 21 mg TRDERM DAILY [facility] Last Admin: 09/19/21 08:09 Dose: 21 mg Documented by: Ondansetron HCl (Ondansetron 4 Mg/2 Ml Sdv) 4 mg IV Q4H PRN PRN Reason: Nausea/Vomiting Pantoprazole Sodium (Pantoprazole 40 Mg Tab.Cr) 40 mg PO BIDAC [facility] Last Admin: 09/19/21 07:52 Dose: 40 mg Documented by: Sodium Chloride (Sodium Chloride 0.9% 10 Ml Syringe) 10 ml FLUSH ASDIRECTED PRN PRN Reason: Keep Vein Open Tamsulosin HCl (Tamsulosin 0.4 Mg Cap.Er) 0.4 mg PO DAILY [facility] Last Admin: 09/19/21 08:12 Dose: 0.4 mg Documented by: Thiamine HCl (Thiamine 100 Mg Tab) 100 mg PO DAILY [facility] Last Admin: 09/19/21 08:12 Dose: 100 mg Documented by: Discontinued Medications Adenosine (Adenosine 6 Mg/2 Ml Sdv) 12 mg IVPUSH NOW ONE Stop: 09/16/21 20:22 Last Admin: 09/16/21 20:30 Dose: 12 mg Documented by: Adenosine (Adenosine 6 Mg/2 Ml Sdv) Confirm Administered Dose 12 mg .ROUTE .STK- MED ONE Stop: 09/16/21 20:22 Last Admin: 09/17/21 08:08 Dose: Not Given Documented by: Albuterol (Albuterol 8 Gm Inhaler) 0 gm INH BID JODIE Last Admin: 09/18/21 01:50 Dose: Not Given Documented by: Cefepime HCl (Cefepime 1 Gm Vial) Confirm Administered Dose 2 gm .ROUTE .STK-MED ONE Stop: 09/16/21 22:04 Last Admin: 09/16/21 22:14 Dose: Not Given Documented by: Fentanyl (Fentanyl 100 Mcg/2 Ml Sdv) Confirm Administered Dose 100 mcg .ROUTE .STK-MED ONE Stop: 09/18/21 07:19 Sodium Chloride (Normal Saline) 1,000 mls @ 999 mls/hr IV ASDIRECTED [facility] Last Admin: 09/16/21 20:39 Dose: 999 mls/hr Documented by: Esmolol HCl (Esmolol Hcl In Sterile Water 2,500 Mg/250 Ml) 250 mls @ 23.133 mls/hr IV TITRATE JODIE; Protocol Last Titration: 09/17/21 04:02 Dose: 0 mcg/kg/min, 0 mls/hr Documented by: Sodium Chloride (Normal Saline) 1,000 mls @ 999 mls/hr IV ASDIRECTED [facility] Last Admin: 09/16/21 22:01 Dose: 999 mls/hr Documented by: Cefepime HCl 2 gm/ Sodium (Chloride) 50 mls @ 100 mls/hr IV ONETIME ONE Stop: 09/16/21 22:19 Last Admin: 09/16/21 22:07 Dose: 100 mls/hr Documented by: Sodium Chloride (Normal Saline) Confirm Administered Dose 100 mls @ as directed .ROUTE .STK-MED ONE Stop: 09/16/21 22:07 Last Admin: 09/16/21 22:14 Dose: Not Given Documented by: Sodium Chloride (Normal Saline) 1,000 mls @ 125 mls/hr IV ASDIRECTED [facility] Last Admin: 09/17/21 07:40 Dose: 125 mls/hr Documented by: Octreotide Acetate 500 mcg/ (Sodium Chloride) 500 mls @ 50 mls/hr IV Q10H [facility] Last Admin: 09/17/21 03:45 Dose: 50 mcg/hr, 50 mls/hr Documented by: Pantoprazole Sodium 80 mg/ (Sodium Chloride) 100 mls @ 10 mls/hr IV Q10H [facility] Last Admin: 09/17/21 03:57 Dose: 10 mls/hr Documented by: Sodium Chloride (Normal Saline) Confirm Administered Dose 100 mls @ as directed .ROUTE .STK-MED ONE Stop: 09/17/21 03:32 Last Admin: 09/17/21 05:57 Dose: Not Given Documented by: Multivitamins/Minerals 10 ml/Thiamine HCl 100 mg/ Folic Acid 1 mg/ Magnesium Sulfate 3 gm/ Sodium Chloride 1,017.2 mls @ 500 mls/hr IV ASDIRECTED ONE Stop: 09/17/21 10:02 Last Admin: 09/17/21 08:11 Dose: 500 mls/hr Documented by: Octreotide Acetate 500 mcg/ (Sodium Chloride) 500 mls @ 50 mls/hr IV Q10H [facility] Last Admin: 09/18/21 00:13 Dose: 50 mcg/hr, 50 mls/hr Documented by: Pantoprazole Sodium 80 mg/ (Sodium Chloride) 100 mls @ 10 mls/hr IV Q10H [facility] Last Admin: 09/17/21 23:12 Dose: 10 mls/hr Documented by: Calcium Gluconate 2 gm/ Sodium (Chloride) 120 mls @ 100 mls/hr IV ONETIME ONE Stop: 09/17/21 16:56 Last Admin: 09/17/21 16:15 Dose: 100 mls/hr Documented by: Sodium Chloride (Normal Saline) 1,000 mls @ 125 mls/hr IV ASDIRECTED [facility] Ciprofloxacin/Dextrose 400 mg/ (Premix) 200 mls @ 200 mls/hr IV Q12H [facility] Last Admin: 09/18/21 04:58 Dose: 200 mls/hr Documented by: Multivitamins/Minerals 10 ml/Thiamine HCl 100 mg/ Folic Acid 1 mg/ Magnesium Sulfate 2 gm/ Sodium Chloride 1,015.2 mls @ 100 mls/hr IV ONETIME ONE Stop: 09/18/21 02:57 Last Admin: 09/17/21 18:17 Dose: Not Given Documented by: Potassium Chloride 40 meq/ (Premix) 100 mls @ 25 mls/hr IV ONETIME ONE Stop: 09/18/21 00:01 Potassium Chloride 20 meq/ (Premix) 0 mls @ 50 mls/hr IV Q2H [facility] Stop: 09/17/21 23:01 Last Admin: 09/17/21 23:13 Dose: 50 mls/hr Documented by: Potassium Chloride 20 meq/Lidocaine HCl 2 ml/ Sodium Chloride 112 mls @ 56 mls/hr IV Q2H JODIE Stop: 09/18/21 11:14 Last Admin: 09/18/21 09:58 Dose: 56 mls/hr Documented by: Magnesium Sulfate 2 gm/ Premix 50 mls @ 25 mls/hr IV Q6H JODIE Stop: 09/18/21 22:59 Last Admin: 09/18/21 20:57 Dose: 25 mls/hr Documented by: Lidocaine HCl (Lidocaine 1% 5 Ml Sdv) 5 ml INJECT ONETIME ONE Stop: 09/17/21 20:59 Last Admin: 09/17/21 21:40 Dose: 5 ml Documented by: Midazolam HCl (Midazolam 1 Mg/Ml 2 Ml Sdv) Confirm Administered Dose 2 mg .ROUTE .STK-MED ONE Stop: 09/18/21 07:19 Octreotide Acetate (Octreotide 200 Mcg/Ml 5 Ml Mdv) Confirm Administered Dose 1,000 mcg .ROUTE .STK-MED ONE Stop: 09/17/21 03:33 Last Admin: 09/17/21 05:57 Dose: Not Given Documented by: Pantoprazole Sodium (Pantoprazole 40 Mg Vial) Confirm Administered Dose 80 mg .ROUTE .STK-MED ONE Stop: 09/17/21 03:32 Last Admin: 09/17/21 05:57 Dose: Not Given Documented by: Potassium Chloride (Potassium Chloride 20 Meq Tab.Er) 40 meq PO ONETIME ONE Stop: 09/17/21 20:02 Last Admin: 09/17/21 21:40 Dose: 40 meq Documented by: Potassium Chloride (Potassium Chloride 20 Meq Tab.Er) 40 meq PO ONETIME ONE Stop: 09/18/21 08:01 Last Admin: 09/18/21 09:10 Dose: 40 meq Documented by: Potassium Chloride (Potassium Chloride 20 Meq Tab.Er) 40 meq PO ONETIME ONE Stop: 09/18/21 13:01 Last Admin: 09/18/21 13:27 Dose: 40 meq Documented by: Potassium Chloride (Potassium Chloride 20 Meq Tab.Er) 40 meq PO ONETIME ONE Stop: 09/18/21 18:47 Last Admin: 09/18/21 19:49 Dose: 40 meq Documented by: Propofol (Propofol 200 Mg/20 Ml Sdv) Confirm Administered Dose 200 mg .ROUTE .STK-MED ONE Stop: 09/18/21 07:19 Propofol (Propofol 200 Mg/20 Ml Sdv) Confirm Administered Dose 200 mg .ROUTE .STK-MED ONE Stop: 09/18/21 07:56 Sodium Chloride (Sodium Chloride 0.9% 10 Ml Syringe) 10 ml FLUSH ASDIRECTED PRN PRN Reason: Keep Vein Open Last Admin: 09/17/21 02:17 Dose: 10 ml Documented by: - Exam Quality Assessment: No: Supplemental Oxygen General: Alert, Oriented, Cooperative, No Acute Distress Lungs: Normal Respiratory Effort. No: Wheezing Cardiovascular: Regular Rate, Regular Rhythm GI/Abdominal Exam: Soft, No Distention Extremities: No Pedal Edema. No: Increased Warmth Skin: Warm, Dry Neurological: Other (mild tremor ) Psy/Mental Status: Alert. No: Agitated - Patient Data Lab Results Last 24 hrs: Laboratory Results - last 24 hr 09/18/21 09/18/21 09/19/21 Range/Units 16:55 17:00 05:37 WBC 5.1 (4.5-11.0) K/uL RBC 3.33 L (4.30-5.90) M/uL Hgb 9.5 L 9.6 L (12.0-15.0) g/dL Hct 29.0 L (40.0-54.0) % MCV 87 (80-98) fL MCH 29 (27-31) pg MCHC 33 (32-36) % Plt Count 93 L (150-400) K/uL Neut % (Auto) 75.0 H (36-66) % Lymph % (Auto) 16.0 L (24-44) % [place] % (Auto) 8.0 H (2-6) % Eos % (Auto) 0.0 L (2-4) % Baso % (Auto) 0.0 (0-1) % Sodium (140-148) mmol/L Potassium 3.5 L (3.6-5.2) mmol/L Chloride (100-108) mmol/L Carbon Dioxide (21-32) mmol/L Anion Gap (5.0-14.0) mmol/L BUN (7-18) mg/dL Creatinine (0.8-1.3) mg/dL Est Cr Clr Drug Dosing mL/min Estimated GFR (MDRD) (>60) BUN/Creatinine Ratio Glucose (74-106) mg/dL Calcium (8.5-10.1) mg/dL Magnesium (1.8-2.4) mg/dL Total Bilirubin (0.2-1.0) mg/dL AST (15-37) U/L ALT (12-78) U/L Alkaline Phosphatase (46-116) U/L Total Protein (6.4-8.2) g/dL Albumin (3.4-5.0) g/dL Globulin (2.3-3.5) g/dL Albumin/Globulin Ratio (1.2-2.2) 09/19/21 Range/Units 05:37 WBC (4.5-11.0) K/uL RBC (4.30-5.90) M/uL Hgb (12.0-15.0) g/dL Hct (40.0-54.0) % MCV (80-98) fL MCH (27-31) pg MCHC (32-36) % Plt Count (150-400) K/uL Neut % (Auto) (36-66) % Lymph % (Auto) (24-44) % [place] % (Auto) (2-6) % Eos % (Auto) (2-4) % Baso % (Auto) (0-1) % Sodium 132 L (140-148) mmol/L Potassium 3.8 (3.6-5.2) mmol/L Chloride 97 L (100-108) mmol/L Carbon Dioxide 25 (21-32) mmol/L Anion Gap 13.8 (5.0-14.0) mmol/L BUN (7-18) mg/dL Creatinine 0.5 L (0.8-1.3) mg/dL Est Cr Clr Drug Dosing 168.89 mL/min Estimated GFR (MDRD) > 60 (>60) BUN/Creatinine Ratio Not Reportable Glucose 120 H (74-106) mg/dL Calcium 8.1 L (8.5-10.1) mg/dL Magnesium 1.9 D (1.8-2.4) mg/dL Total Bilirubin 1.3 H (0.2-1.0) mg/dL AST 199 H (15-37) U/L ALT 83 H (12-78) U/L Alkaline Phosphatase 262 H (46-116) U/L Total Protein 5.7 L (6.4-8.2) g/dL Albumin 2.7 L (3.4-5.0) g/dL Globulin 3.0 (2.3-3.5) g/dL Albumin/Globulin Ratio 0.9 L (1.2-2.2) Result Diagrams: 09/19/21 05:37 09/19/21 05:37 Song Results Last 24 hrs: Microbiology 09/18/21 08:05 CLOtest - Final Stomach NEGATIVE CLOTEST REFERENCE RANGE: NEGATIVE 09/16/21 20:25 Aerobic Blood Culture - Preliminary Blood - Arm, Left NO GROWTH AFTER 2 DAYS Anaerobic Blood Culture - Preliminary NO GROWTH AFTER 2 DAYS 09/16/21 21:45 Aerobic Blood Culture - Preliminary Blood - Arterial Line - Abg NO GROWTH AFTER 2 DAYS Anaerobic Blood Culture - Preliminary NO GROWTH AFTER 2 DAYS Sepsis Event Note - Evaluation Sepsis Screening Result: Possible Sepsis Risk - Focused Exam Vital Signs: Vital Signs Temp Pulse Pulse Resp BP BP Pulse Ox 09/19/21 08:11 109 H 130/80 09/19/21 08:00 37.1 C 103 H 15 130/80 94 L 09/19/21 06:00 90 20 120/90 96 09/19/21 04:00 36.8 C 85 16 122/74 99 09/19/21 02:00 98 16 108/70 98 09/19/21 00:00 37.0 C 94 12 115/73 97 09/18/21 22:00 13 117/75 93 L - Problem List Review Problem List Initiated/Reviewed/Updated: Yes - My Orders Last 24 Hours: My Active Orders 09/19/21 09:45 Cyanocobalamin (Vitamin B12) [Vitamin B12] 1,000 mcg PO DAILY 09/20/21 05:00 BASIC METABOLIC PANEL,BMP [CHEM] Timed CBC W/O DIFF,HEMOGRAM [HEME] Timed (1) - Plan Plan:: ASSESSMENT AND PLAN - UPPER GI HEMORRHAGE-esophageal ulcers noted on EGD likely source of recent bleeding. He was also noted to have esophageal varices, mild gastritis, and mild duodenitis. Bleeding seems to have stopped. -Regular diet -Repeat hemoglobin in the morning -Protonix 40 mg p.o. twice daily -Transfuse as needed if hemoglobin less than 7 -Surgical follow-up per Dr. Cline ACUTE BLOOD LOSS ANEMIA-secondary to GI bleed. Hemoglobin stable. -Management as above HISTORY OF ALCOHOL ABUSE-longstanding history of alcohol intake, minimal evidence for alcohol withdrawal so far. No interest in complete cessation. He has been through treatment in the past. -Alcohol withdrawal protocol -Encourage cessation and offer outpatient resources as available ELEVATED ANION GAP METABOLIC ACIDOSIS-finally resolved with hydration. -Saline lock IV -Follow-up labs in a.m. SIGMOID COLITIS-evidence of colon inflammation identified on CT scan. Exam is benign and he denies symptoms of abdominal pain -Continue ceftriaxone and metronidazole today, transition to oral tomorrow ALCOHOLIC HEPATITIS-levels have been improving. -Alcohol cessation as discussed above HYPOCALCEMIA-improved following calcium replacement. -Follow-up calcium level in a.m. HYPOKALEMIA-improving with supplementation. -Recheck in the morning TOBACCO DEPENDENCE-no interest in quitting. -Encourage cessation MAINTENANCE ISSUES -DVT prophylaxis; SCUDs, hold on anticoagulation with evidence of recent bleeding -GI prophylaxis; Protonix as above -Banks catheter; not indicated -Nutrition; regular diet DISPOSITION-anticipate discharge to home after the hospital stay. He is quite weak but otherwise doing okay. We are initiating physical therapy today. Shekhar Collazo MD
[2021-09-19] MEDS: Cyanocobalamin (Vitamin B12) 1,000 MCG Tab PO SCH (10:28)
[2021-09-19] MEDS: Pantoprazole 80 MG in Sodium Chloride 0.9% 100 ML IV SCH ×2 (11:14→11:37)
[2021-09-19] MEDS: Octreotide 500 MCG in Sodium Chloride 0.9% 497.5 ML IV SCH ×2 (11:14→11:39)
[2021-09-19] MEDS: cefTRIAXone 1 GM in Sodium Chloride 0.9% 50 ML IV SCH (14:33)
[2021-09-20] MEDS: metroNIDAZOLE/Normal Saline 500 MG in Premix Bag 1 BAG IV SCH (02:31)
[2021-09-20] MEDS: Albuterol/Ipratropium 3.0-0.5 MG/3 ML Neb Soln NEB SCH ×4 (06:58→20:37)
[2021-09-20] MEDS: Albuterol 8 GM Inhaler INH SCH ×2 (08:07→21:05)
[2021-09-20] MEDS: Pantoprazole 40 MG Tab.CR PO SCH ×2 (08:07→17:28)
[2021-09-20] MEDS: Folic Acid 1 MG Tab PO SCH (08:09)
[2021-09-20] MEDS: Magnesium Oxide 400 MG Tab PO SCH ×2 (08:09→20:37)
[2021-09-20] MEDS: Tamsulosin 0.4 MG Cap.ER PO SCH (08:09)
[2021-09-20] MEDS: Thiamine 100 MG Tab PO SCH (08:09)
[2021-09-20] MEDS: Metoprolol Tartrate 25 MG Tab PO SCH ×2 (08:10→20:36)
[2021-09-20] MEDS: Cyanocobalamin (Vitamin B12) 1,000 MCG Tab PO SCH (08:10)
[2021-09-20] MEDS: Nicotine 21 MG/24 Hr Patch TRDERM SCH (08:14)
[2021-09-20] MEDS: LORazepam 1 MG Tab PO SCH (08:16)
[2021-09-20] MEDS: Amoxicillin/Clavulanate K 875-125 MG Tab PO SCH ×2 (09:04→20:36)
[2021-09-20] MEDS: metroNIDAZOLE 250 MG Tab PO SCH ×2 (09:05→17:28)
--- NOTE | 2021-09-20 09:32 | PCM.PN ---
- General Info Date of Service: 09/20/21 Subjective Update: No acute events overnight. Minimal anxiety that has been medicated with lorazepam with good effect. Speech is more clear and he seems a little bit stronger today. Still quite weak and requiring a fair amount of assistance. Appetite is a little better. No recurrence of bleeding. Vital signs have been stable. Steadily improving other than his weakness. Functional Status: Reports: Pain Controlled, Tolerating Diet - Review of Systems General: Reports: Weakness - Patient Data Vitals - Most Recent: Last Vital Signs Temp 36.6 C 09/20/21 08:00 Pulse 119 H 09/20/21 08:10 Resp 17 09/20/21 08:00 BP 120/68 09/20/21 08:10 Pulse Ox 97 09/20/21 08:00 Weight - Most Recent: 52.889 kg I&O - Last 24 Hours: Intake & Output 09/19/21 09/20/21 09/20/21 22:59 06:59 14:59 Intake Total 490 390 Output Total 200 300 575 Balance 290 -300 -185 Lab Results Last 24 Hours: Laboratory Results - last 24 hr 09/19/21 09/20/21 09/20/21 Range/Units 05:37 05:30 05:30 WBC 4.5 (4.5-11.0) K/uL RBC 3.30 L (4.30-5.90) M/uL Hgb 9.6 L (12.0-15.0) g/dL Hct 29.9 L (40.0-54.0) % MCV 91 (80-98) fL MCH 29 (27-31) pg MCHC 32 (32-36) % Plt Count 115 L (150-400) K/uL Sodium 132 L (140-148) mmol/L Potassium 3.4 L (3.6-5.2) mmol/L Chloride 97 L (100-108) mmol/L Carbon Dioxide 26 (21-32) mmol/L Anion Gap 12.4 (5.0-14.0) mmol/L BUN 3 L 4 L (7-18) mg/dL Creatinine 0.4 L (0.8-1.3) mg/dL Est Cr Clr Drug Dosing 157.93 mL/min Estimated GFR (MDRD) > 60 (>60) Glucose 104 (74-106) mg/dL Calcium 8.2 L (8.5-10.1) mg/dL Song Results Last 24 Hours: Microbiology 09/16/21 21:45 Aerobic Blood Culture - Preliminary Blood - Arterial Line - Abg NO GROWTH AFTER 3 DAYS Anaerobic Blood Culture - Preliminary NO GROWTH AFTER 3 DAYS 09/16/21 20:25 Aerobic Blood Culture - Preliminary Blood - Arm, Left NO GROWTH AFTER 3 DAYS Anaerobic Blood Culture - Preliminary NO GROWTH AFTER 3 DAYS 09/18/21 08:05 CLOtest - Final Stomach NEGATIVE CLOTEST REFERENCE RANGE: NEGATIVE Med Orders - Current: Current Medications Acetaminophen (Acetaminophen 325 Mg Tab) 650 mg PO Q4H PRN PRN Reason: Pain (Mild 1-3)/fever Albuterol (Albuterol 0.083% 2.5 Mg/3 Ml Neb Soln) 2.5 mg NEB Q4H PRN PRN Reason: Dyspnea Last Admin: 09/17/21 19:39 Dose: 2.5 mg Documented by: Albuterol (Albuterol 8 Gm Inhaler) 0 gm INH BIDRT [facility] Last Admin: 09/20/21 08:07 Dose: 2 inh Documented by: Albuterol/Ipratropium (Albuterol/Ipratropium 3.0-0.5 Mg/3 Ml Neb Soln) 3 ml NEB QIDRT [facility] Last Admin: 09/20/21 06:58 Dose: 3 ml Documented by: Amoxicillin/Clavulanate Potassium (Amoxicillin/Clavulanate K 875-125 Mg Tab) 1 tab PO BID [facility] Last Admin: 09/20/21 09:04 Dose: 1 tab Documented by: Cyanocobalamin (Cyanocobalamin (Vitamin B12) 1,000 Mcg Tab) 1,000 mcg PO DAILY [facility] Last Admin: 09/20/21 08:10 Dose: 1,000 mcg Documented by: Folic Acid (Folic Acid 1 Mg Tab) 1 mg PO DAILY [facility] Last Admin: 09/20/21 08:09 Dose: 1 mg Documented by: Lorazepam (Lorazepam 0.5 Mg Tab) 0.5 mg PO Q4H PRN PRN Reason: Anxiety Magnesium Oxide (Magnesium Oxide 400 Mg Tab) 400 mg PO BID [facility] Last Admin: 09/20/21 08:09 Dose: 400 mg Documented by: Metoprolol Tartrate (Metoprolol Tartrate 25 Mg Tab) 25 mg PO Q12H [facility] Last Admin: 09/20/21 08:10 Dose: 25 mg Documented by: Metronidazole (Metronidazole 250 Mg Tab) 500 mg PO Q8H [facility] Last Admin: 09/20/21 09:05 Dose: 500 mg Documented by: Nicotine (Nicotine 21 Mg/24 Hr Patch) 21 mg TRDERM DAILY [facility] Last Admin: 09/20/21 08:14 Dose: 21 mg Documented by: Ondansetron HCl (Ondansetron 4 Mg/2 Ml Sdv) 4 mg IV Q4H PRN PRN Reason: Nausea/Vomiting Pantoprazole Sodium (Pantoprazole 40 Mg Tab.Cr) 40 mg PO BIDAC [facility] Last Admin: 09/20/21 08:07 Dose: 40 mg Documented by: Potassium Chloride (Potassium Chloride 20 Meq Tab.Er) 40 meq PO BID [facility] Stop: 09/20/21 21:01 Sodium Chloride (Sodium Chloride 0.9% 10 Ml Syringe) 10 ml FLUSH ASDIRECTED PRN PRN Reason: Keep Vein Open Tamsulosin HCl (Tamsulosin 0.4 Mg Cap.Er) 0.4 mg PO DAILY [facility] Last Admin: 09/20/21 08:09 Dose: 0.4 mg Documented by: Thiamine HCl (Thiamine 100 Mg Tab) 100 mg PO DAILY [facility] Last Admin: 09/20/21 08:09 Dose: 100 mg Documented by: Discontinued Medications Adenosine (Adenosine 6 Mg/2 Ml Sdv) 12 mg IVPUSH NOW ONE Stop: 09/16/21 20:22 Last Admin: 09/16/21 20:30 Dose: 12 mg Documented by: Adenosine (Adenosine 6 Mg/2 Ml Sdv) Confirm Administered Dose 12 mg .ROUTE .STK- MED ONE Stop: 09/16/21 20:22 Last Admin: 09/17/21 08:08 Dose: Not Given Documented by: Albuterol (Albuterol 8 Gm Inhaler) 0 gm INH BID [facility] Last Admin: 09/18/21 01:50 Dose: Not Given Documented by: Cefepime HCl (Cefepime 1 Gm Vial) Confirm Administered Dose 2 gm .ROUTE .STK-MED ONE Stop: 09/16/21 22:04 Last Admin: 09/16/21 22:14 Dose: Not Given Documented by: Fentanyl (Fentanyl 100 Mcg/2 Ml Sdv) Confirm Administered Dose 100 mcg .ROUTE .STK-MED ONE Stop: 09/18/21 07:19 Sodium Chloride (Normal Saline) 1,000 mls @ 999 mls/hr IV ASDIRECTED [facility] Last Admin: 09/16/21 20:39 Dose: 999 mls/hr Documented by: Esmolol HCl (Esmolol Hcl In Sterile Water 2,500 Mg/250 Ml) 250 mls @ 23.133 mls/hr IV TITRATE JODIE; Protocol Last Titration: 09/17/21 04:02 Dose: 0 mcg/kg/min, 0 mls/hr Documented by: Sodium Chloride (Normal Saline) 1,000 mls @ 999 mls/hr IV ASDIRECTED [facility] Last Admin: 09/16/21 22:01 Dose: 999 mls/hr Documented by: Cefepime HCl 2 gm/ Sodium (Chloride) 50 mls @ 100 mls/hr IV ONETIME ONE Stop: 09/16/21 22:19 Last Admin: 09/16/21 22:07 Dose: 100 mls/hr Documented by: Sodium Chloride (Normal Saline) Confirm Administered Dose 100 mls @ as directed .ROUTE .STK-MED ONE Stop: 09/16/21 22:07 Last Admin: 09/16/21 22:14 Dose: Not Given Documented by: Sodium Chloride (Normal Saline) 1,000 mls @ 125 mls/hr IV ASDIRECTED [facility] Last Admin: 09/17/21 07:40 Dose: 125 mls/hr Documented by: Octreotide Acetate 500 mcg/ (Sodium Chloride) 500 mls @ 50 mls/hr IV Q10H [facility] Last Admin: 09/19/21 11:39 Dose: Not Given Documented by: Pantoprazole Sodium 80 mg/ (Sodium Chloride) 100 mls @ 10 mls/hr IV Q10H [facility] Last Admin: 09/19/21 11:37 Dose: Not Given Documented by: Sodium Chloride (Normal Saline) Confirm Administered Dose 100 mls @ as directed .ROUTE .STK-MED ONE Stop: 09/17/21 03:32 Last Admin: 09/17/21 05:57 Dose: Not Given Documented by: Multivitamins/Minerals 10 ml/Thiamine HCl 100 mg/ Folic Acid 1 mg/ Magnesium Sulfate 3 gm/ Sodium Chloride 1,017.2 mls @ 500 mls/hr IV ASDIRECTED ONE Stop: 09/17/21 10:02 Last Admin: 09/17/21 08:11 Dose: 500 mls/hr Documented by: Octreotide Acetate 500 mcg/ (Sodium Chloride) 500 mls @ 50 mls/hr IV Q10H [facility] Last Admin: 09/19/21 11:14 Dose: Not Given Documented by: Pantoprazole Sodium 80 mg/ (Sodium Chloride) 100 mls @ 10 mls/hr IV Q10H [facility] Last Admin: 09/19/21 11:14 Dose: Not Given Documented by: Calcium Gluconate 2 gm/ Sodium (Chloride) 120 mls @ 100 mls/hr IV ONETIME ONE Stop: 09/17/21 16:56 Last Admin: 09/17/21 16:15 Dose: 100 mls/hr Documented by: Sodium Chloride (Normal Saline) 1,000 mls @ 125 mls/hr IV ASDIRECTED [facility] Ciprofloxacin/Dextrose 400 mg/ (Premix) 200 mls @ 200 mls/hr IV Q12H [facility] Last Admin: 09/18/21 04:58 Dose: 200 mls/hr Documented by: Metronidazole 500 mg/ Premix 100 mls @ 100 mls/hr IV Q8H [facility] Last Admin: 09/20/21 02:31 Dose: 100 mls/hr Documented by: Multivitamins/Minerals 10 ml/Thiamine HCl 100 mg/ Folic Acid 1 mg/ Magnesium Sulfate 2 gm/ Sodium Chloride 1,015.2 mls @ 100 mls/hr IV ONETIME ONE Stop: 09/18/21 02:57 Last Admin: 09/17/21 18:17 Dose: Not Given Documented by: Potassium Chloride 40 meq/ (Premix) 100 mls @ 25 mls/hr IV ONETIME ONE Stop: 09/18/21 00:01 Last Admin: 09/19/21 11:40 Dose: Not Given Documented by: Potassium Chloride 20 meq/ (Premix) 0 mls @ 50 mls/hr IV Q2H [facility] Stop: 09/17/21 23:01 Last Admin: 09/17/21 23:13 Dose: 50 mls/hr Documented by: Potassium Chloride 20 meq/Lidocaine HCl 2 ml/ Sodium Chloride 112 mls @ 56 mls/hr IV Q2H [facility] Stop: 09/18/21 11:14 Last Admin: 09/18/21 09:58 Dose: 56 mls/hr Documented by: Magnesium Sulfate 2 gm/ Premix 50 mls @ 25 mls/hr IV Q6H [facility] Stop: 09/18/21 22:59 Last Admin: 09/18/21 20:57 Dose: 25 mls/hr Documented by: Ceftriaxone Sodium 1 gm/ (Sodium Chloride) 50 mls @ 100 mls/hr IV Q24H [facility] Last Admin: 09/19/21 14:33 Dose: 100 mls/hr Documented by: Lidocaine HCl (Lidocaine 1% 5 Ml Sdv) 5 ml INJECT ONETIME ONE Stop: 09/17/21 20:59 Last Admin: 09/17/21 21:40 Dose: 5 ml Documented by: Lorazepam (Lorazepam 2 Mg/Ml Sdv) 0 mg IV ASDIRECTED JODIE; Protocol Lorazepam (Lorazepam 1 Mg Tab) 0 mg PO ASDIRECTED JODIE; Protocol Last Admin: 09/20/21 08:16 Dose: 1 mg Documented by: Midazolam HCl (Midazolam 1 Mg/Ml 2 Ml Sdv) Confirm Administered Dose 2 mg .ROUTE .STK-MED ONE Stop: 09/18/21 07:19 Octreotide Acetate (Octreotide 200 Mcg/Ml 5 Ml Mdv) Confirm Administered Dose 1,000 mcg .ROUTE .STK-MED ONE Stop: 09/17/21 03:33 Last Admin: 09/17/21 05:57 Dose: Not Given Documented by: Pantoprazole Sodium (Pantoprazole 40 Mg Vial) Confirm Administered Dose 80 mg .ROUTE .STK-MED ONE Stop: 09/17/21 03:32 Last Admin: 09/17/21 05:57 Dose: Not Given Documented by: Potassium Chloride (Potassium Chloride 20 Meq Tab.Er) 40 meq PO ONETIME ONE Stop: 09/17/21 20:02 Last Admin: 09/17/21 21:40 Dose: 40 meq Documented by: Potassium Chloride (Potassium Chloride 20 Meq Tab.Er) 40 meq PO ONETIME ONE Stop: 09/18/21 08:01 Last Admin: 09/18/21 09:10 Dose: 40 meq Documented by: Potassium Chloride (Potassium Chloride 20 Meq Tab.Er) 40 meq PO ONETIME ONE Stop: 09/18/21 13:01 Last Admin: 09/18/21 13:27 Dose: 40 meq Documented by: Potassium Chloride (Potassium Chloride 20 Meq Tab.Er) 40 meq PO ONETIME ONE Stop: 09/18/21 18:47 Last Admin: 09/18/21 19:49 Dose: 40 meq Documented by: Propofol (Propofol 200 Mg/20 Ml Sdv) Confirm Administered Dose 200 mg .ROUTE .STK-MED ONE Stop: 09/18/21 07:19 Propofol (Propofol 200 Mg/20 Ml Sdv) Confirm Administered Dose 200 mg .ROUTE .STK-MED ONE Stop: 09/18/21 07:56 Sodium Chloride (Sodium Chloride 0.9% 10 Ml Syringe) 10 ml FLUSH ASDIRECTED PRN PRN Reason: Keep Vein Open Last Admin: 09/17/21 02:17 Dose: 10 ml Documented by: - Exam Quality Assessment: No: Supplemental Oxygen General: Alert, Oriented, Cooperative, No Acute Distress Lungs: Normal Respiratory Effort GI/Abdominal Exam: Soft, No Distention Extremities: No Pedal Edema Skin: Warm, Dry Psy/Mental Status: Alert, Normal Affect - Patient Data Lab Results Last 24 hrs: Laboratory Results - last 24 hr 09/19/21 09/20/21 09/20/21 Range/Units 05:37 05:30 05:30 WBC 4.5 (4.5-11.0) K/uL RBC 3.30 L (4.30-5.90) M/uL Hgb 9.6 L (12.0-15.0) g/dL Hct 29.9 L (40.0-54.0) % MCV 91 (80-98) fL MCH 29 (27-31) pg MCHC 32 (32-36) % Plt Count 115 L (150-400) K/uL Sodium 132 L (140-148) mmol/L Potassium 3.4 L (3.6-5.2) mmol/L Chloride 97 L (100-108) mmol/L Carbon Dioxide 26 (21-32) mmol/L Anion Gap 12.4 (5.0-14.0) mmol/L BUN 3 L 4 L (7-18) mg/dL Creatinine 0.4 L (0.8-1.3) mg/dL Est Cr Clr Drug Dosing 157.93 mL/min Estimated GFR (MDRD) > 60 (>60) Glucose 104 (74-106) mg/dL Calcium 8.2 L (8.5-10.1) mg/dL Result Diagrams: 09/20/21 05:30 09/20/21 05:30 Song Results Last 24 hrs: Microbiology 09/16/21 21:45 Aerobic Blood Culture - Preliminary Blood - Arterial Line - Abg NO GROWTH AFTER 3 DAYS Anaerobic Blood Culture - Preliminary NO GROWTH AFTER 3 DAYS 09/16/21 20:25 Aerobic Blood Culture - Preliminary Blood - Arm, Left NO GROWTH AFTER 3 DAYS Anaerobic Blood Culture - Preliminary NO GROWTH AFTER 3 DAYS 09/18/21 08:05 CLOtest - Final Stomach NEGATIVE CLOTEST REFERENCE RANGE: NEGATIVE Sepsis Event Note - Evaluation Sepsis Screening Result: No Definite Risk - Focused Exam Vital Signs: Vital Signs Temp Pulse Pulse Resp BP BP Pulse Ox 09/20/21 08:10 119 H 120/68 09/20/21 08:00 36.6 C 130 H 17 120/68 97 09/20/21 06:00 96 13 124/70 99 09/20/21 04:00 36.7 C 91 15 131/76 98 09/20/21 02:00 94 19 139/84 98 09/20/21 00:00 94 17 121/67 98 09/19/21 22:00 101 H 18 124/72 98 - Problem List Review Problem List Initiated/Reviewed/Updated: Yes - My Orders Last 24 Hours: My Active Orders 09/19/21 09:45 Cyanocobalamin (Vitamin B12) [Vitamin B12] 1,000 mcg PO DAILY 09/20/21 09:00 Amoxicillin/Clavulanate K [Augmentin 875 MG/125 MG] 1 tab PO BID metroNIDAZOLE 500 mg PO Q8H 09/20/21 09:30 Transfer Patient (Change bed) [ADT] Routine LORazepam [Ativan] 0.5 mg PO Q4H PRN Potassium Chloride [Klor-Con M20] 40 meq PO BID 09/20/21 09:31 Discontinue Telemetry Monitoring [Cardiac Monitoring Discontinue] [RC] Click to Edit PT Evaluation and Treatment [CONS] Routine 09/21/21 05:00 COMPREHENSIVE METABOLIC PN,CMP [CHEM] Timed - Plan Plan:: ASSESSMENT AND PLAN - UPPER GI HEMORRHAGE-esophageal ulcers noted on EGD likely source of recent bleeding. He was also noted to have esophageal varices, mild gastritis, and mild duodenitis. No recurrence of bleeding. -Regular diet -Repeat hemoglobin in the morning -Protonix 40 mg p.o. twice daily -Transfuse as needed if hemoglobin less than 7 -Surgical follow-up per Dr. Cline ACUTE BLOOD LOSS ANEMIA-secondary to GI bleed. Hemoglobin stable. -Management as above HISTORY OF ALCOHOL ABUSE-longstanding history of alcohol intake. No interest in complete cessation. He has been through treatment in the past. Alcohol withdrawal seems to have resolved. -Discontinue alcohol withdrawal protocol -Encourage cessation and offer outpatient resources as available SIGMOID COLITIS-evidence of colon inflammation identified on CT scan. Exam is benign and he denies symptoms of abdominal pain. Diarrhea has resolved. -Continue Augmentin and metronidazole ALCOHOLIC HEPATITIS-levels have been improving. -Alcohol cessation as discussed above HYPOCALCEMIA-improved following calcium replacement. -Follow-up calcium level in a.m. HYPOKALEMIA-improving with supplementation. -Recheck in the morning TOBACCO DEPENDENCE-no interest in quitting. -Encourage cessation MAINTENANCE ISSUES -DVT prophylaxis; SCUDs, hold on anticoagulation with evidence of recent bleeding -GI prophylaxis; Protonix as above -Banks catheter; not indicated -Nutrition; regular diet DISPOSITION-anticipate discharge to home after the hospital stay. He is quite weak but otherwise doing okay and hopefully will be ready for discharge in a day or 2. Shekhar Collazo MD
[2021-09-20] MEDS: Potassium Chloride 20 MEQ Tab.ER PO SCH ×2 (11:01→20:36)
[2021-09-20] MEDS: LORazepam 0.5 MG Tab PO PRN (20:37)
[2021-09-21] MEDS: LORazepam 0.5 MG Tab PO PRN ×3 (00:23→21:01)
[2021-09-21] MEDS: metroNIDAZOLE 250 MG Tab PO SCH ×3 (00:24→16:08)
[2021-09-21] MEDS: Albuterol/Ipratropium 3.0-0.5 MG/3 ML Neb Soln NEB SCH ×2 (06:58→10:44)
[2021-09-21] MEDS: Albuterol 8 GM Inhaler INH SCH ×3 (06:58→21:02)
[2021-09-21] MEDS: Pantoprazole 40 MG Tab.CR PO SCH ×2 (08:47→16:08)
[2021-09-21] MEDS: Thiamine 100 MG Tab PO SCH (09:11)
[2021-09-21] MEDS: Cyanocobalamin (Vitamin B12) 1,000 MCG Tab PO SCH (09:11)
[2021-09-21] MEDS: Folic Acid 1 MG Tab PO SCH (09:11)
[2021-09-21] MEDS: Magnesium Oxide 400 MG Tab PO SCH ×2 (09:11→21:02)
[2021-09-21] MEDS: Amoxicillin/Clavulanate K 875-125 MG Tab PO SCH ×2 (09:11→21:01)
[2021-09-21] MEDS: Tamsulosin 0.4 MG Cap.ER PO SCH (09:11)
[2021-09-21] MEDS: Nicotine 21 MG/24 Hr Patch TRDERM SCH (09:11)
[2021-09-21] MEDS: Metoprolol Tartrate 25 MG Tab PO SCH ×2 (11:43→19:53)
--- NOTE | 2021-09-21 13:33 | PCM.PN ---
- General Info Date of Service: 09/21/21 Subjective Update: No acute events overnight. No evidence for alcohol withdrawal. No significant anxiety. No fevers. Still weak but otherwise doing okay. Functional Status: Reports: Pain Controlled, Tolerating Diet - Review of Systems General: Reports: Weakness - Patient Data Vitals - Most Recent: Last Vital Signs Temp 36.4 C 09/21/21 13:09 Pulse 134 H 09/21/21 13:09 Resp 16 09/21/21 13:09 BP 119/71 09/21/21 13:09 Pulse Ox 99 09/21/21 13:09 Weight - Most Recent: 52.889 kg I&O - Last 24 Hours: Intake & Output 09/20/21 09/21/21 09/21/21 22:59 06:59 14:59 Intake Total 851 65 6570 Output Total 140 100 175 Balance 600 -40 1065 Lab Results Last 24 Hours: Laboratory Results - last 24 hr 09/21/21 Range/Units 04:30 Sodium 133 L (140-148) mmol/L Potassium 4.4 (3.6-5.2) mmol/L Chloride 98 L (100-108) mmol/L Carbon Dioxide 25 (21-32) mmol/L Anion Gap 14.4 H (5.0-14.0) mmol/L BUN 8 D (7-18) mg/dL Creatinine 0.4 L (0.8-1.3) mg/dL Est Cr Clr Drug Dosing 157.93 mL/min Estimated GFR (MDRD) > 60 (>60) Glucose 105 (74-106) mg/dL Calcium 8.4 L (8.5-10.1) mg/dL Total Bilirubin 1.0 (0.2-1.0) mg/dL AST 228 H (15-37) U/L ALT 137 H (12-78) U/L Alkaline Phosphatase 321 H (46-116) U/L Total Protein 5.7 L (6.4-8.2) g/dL Albumin 2.8 L (3.4-5.0) g/dL Globulin 2.9 (2.3-3.5) g/dL Albumin/Globulin Ratio 1.0 L (1.2-2.2) Song Results Last 24 Hours: Microbiology 09/16/21 20:25 Aerobic Blood Culture - Preliminary Blood - Arm, Left NO GROWTH AFTER 4 DAYS Anaerobic Blood Culture - Preliminary NO GROWTH AFTER 4 DAYS 09/16/21 21:45 Aerobic Blood Culture - Preliminary Blood - Arterial Line - Abg NO GROWTH AFTER 4 DAYS Anaerobic Blood Culture - Preliminary NO GROWTH AFTER 4 DAYS Med Orders - Current: Current Medications Acetaminophen (Acetaminophen 325 Mg Tab) 650 mg PO Q4H PRN PRN Reason: Pain (Mild 1-3)/fever Albuterol (Albuterol 0.083% 2.5 Mg/3 Ml Neb Soln) 2.5 mg NEB Q4H PRN PRN Reason: Dyspnea Last Admin: 09/17/21 19:39 Dose: 2.5 mg Documented by: Albuterol (Albuterol 8 Gm Inhaler) 2 gm INH QIDRT [facility] Albuterol/Ipratropium (Albuterol/Ipratropium 3.0-0.5 Mg/3 Ml Neb Soln) 3 ml NEB QIDRT [facility] Last Admin: 09/21/21 10:44 Dose: 3 ml Documented by: Amoxicillin/Clavulanate Potassium (Amoxicillin/Clavulanate K 875-125 Mg Tab) 1 tab PO BID [facility] Last Admin: 09/21/21 09:11 Dose: 1 tab Documented by: Cyanocobalamin (Cyanocobalamin (Vitamin B12) 1,000 Mcg Tab) 1,000 mcg PO DAILY [facility] Last Admin: 09/21/21 09:11 Dose: 1,000 mcg Documented by: Folic Acid (Folic Acid 1 Mg Tab) 1 mg PO DAILY [facility] Last Admin: 09/21/21 09:11 Dose: 1 mg Documented by: Lorazepam (Lorazepam 0.5 Mg Tab) 0.5 mg PO Q4H PRN PRN Reason: Anxiety Last Admin: 09/21/21 05:33 Dose: 0.5 mg Documented by: Magnesium Oxide (Magnesium Oxide 400 Mg Tab) 400 mg PO BID [facility] Last Admin: 09/21/21 09:11 Dose: 400 mg Documented by: Metoprolol Tartrate (Metoprolol Tartrate 25 Mg Tab) 25 mg PO Q12H [facility] Last Admin: 09/21/21 11:43 Dose: Not Given Documented by: Metronidazole (Metronidazole 250 Mg Tab) 500 mg PO Q8H [facility] Last Admin: 09/21/21 09:12 Dose: 500 mg Documented by: Nicotine (Nicotine 21 Mg/24 Hr Patch) 21 mg TRDERM DAILY [facility] Last Admin: 09/21/21 09:11 Dose: 21 mg Documented by: Ondansetron HCl (Ondansetron 4 Mg/2 Ml Sdv) 4 mg IV Q4H PRN PRN Reason: Nausea/Vomiting Pantoprazole Sodium (Pantoprazole 40 Mg Tab.Cr) 40 mg PO BIDAC [facility] Last Admin: 09/21/21 08:47 Dose: 40 mg Documented by: Sodium Chloride (Sodium Chloride 0.9% 10 Ml Syringe) 10 ml FLUSH ASDIRECTED PRN PRN Reason: Keep Vein Open Tamsulosin HCl (Tamsulosin 0.4 Mg Cap.Er) 0.4 mg PO DAILY [facility] Last Admin: 09/21/21 09:11 Dose: 0.4 mg Documented by: Thiamine HCl (Thiamine 100 Mg Tab) 100 mg PO DAILY [facility] Last Admin: 09/21/21 09:11 Dose: 100 mg Documented by: Discontinued Medications Adenosine (Adenosine 6 Mg/2 Ml Sdv) 12 mg IVPUSH NOW ONE Stop: 09/16/21 20:22 Last Admin: 09/16/21 20:30 Dose: 12 mg Documented by: Adenosine (Adenosine 6 Mg/2 Ml Sdv) Confirm Administered Dose 12 mg .ROUTE .STK- MED ONE Stop: 09/16/21 20:22 Last Admin: 09/17/21 08:08 Dose: Not Given Documented by: Albuterol (Albuterol 8 Gm Inhaler) 0 gm INH BID [facility] Last Admin: 09/18/21 01:50 Dose: Not Given Documented by: Albuterol (Albuterol 8 Gm Inhaler) 0 gm INH BIDRT [facility] Last Admin: 09/21/21 06:58 Dose: 2 inh Documented by: Cefepime HCl (Cefepime 1 Gm Vial) Confirm Administered Dose 2 gm .ROUTE .STK-MED ONE Stop: 09/16/21 22:04 Last Admin: 09/16/21 22:14 Dose: Not Given Documented by: Fentanyl (Fentanyl 100 Mcg/2 Ml Sdv) Confirm Administered Dose 100 mcg .ROUTE .STK-MED ONE Stop: 09/18/21 07:19 Sodium Chloride (Normal Saline) 1,000 mls @ 999 mls/hr IV ASDIRECTED [facility] Last Admin: 09/16/21 20:39 Dose: 999 mls/hr Documented by: Esmolol HCl (Esmolol Hcl In Sterile Water 2,500 Mg/250 Ml) 250 mls @ 23.133 mls/hr IV TITRATE JODIE; Protocol Last Titration: 09/17/21 04:02 Dose: 0 mcg/kg/min, 0 mls/hr Documented by: Sodium Chloride (Normal Saline) 1,000 mls @ 999 mls/hr IV ASDIRECTED [facility] Last Admin: 09/16/21 22:01 Dose: 999 mls/hr Documented by: Cefepime HCl 2 gm/ Sodium (Chloride) 50 mls @ 100 mls/hr IV ONETIME ONE Stop: 09/16/21 22:19 Last Admin: 09/16/21 22:07 Dose: 100 mls/hr Documented by: Sodium Chloride (Normal Saline) Confirm Administered Dose 100 mls @ as directed .ROUTE .K-MED ONE Stop: 09/16/21 22:07 Last Admin: 09/16/21 22:14 Dose: Not Given Documented by: Sodium Chloride (Normal Saline) 1,000 mls @ 125 mls/hr IV ASDIRECTED [facility] Last Admin: 09/17/21 07:40 Dose: 125 mls/hr Documented by: Octreotide Acetate 500 mcg/ (Sodium Chloride) 500 mls @ 50 mls/hr IV Q10H [facility] Last Admin: 09/19/21 11:39 Dose: Not Given Documented by: Pantoprazole Sodium 80 mg/ (Sodium Chloride) 100 mls @ 10 mls/hr IV Q10H [facility] Last Admin: 09/19/21 11:37 Dose: Not Given Documented by: Sodium Chloride (Normal Saline) Confirm Administered Dose 100 mls @ as directed .ROUTE .[facility]-MED ONE Stop: 09/17/21 03:32 Last Admin: 09/17/21 05:57 Dose: Not Given Documented by: Multivitamins/Minerals 10 ml/Thiamine HCl 100 mg/ Folic Acid 1 mg/ Magnesium Sulfate 3 gm/ Sodium Chloride 1,017.2 mls @ 500 mls/hr IV ASDIRECTED ONE Stop: 09/17/21 10:02 Last Admin: 09/17/21 08:11 Dose: 500 mls/hr Documented by: Octreotide Acetate 500 mcg/ (Sodium Chloride) 500 mls @ 50 mls/hr IV Q10H [facility] Last Admin: 09/19/21 11:14 Dose: Not Given Documented by: Pantoprazole Sodium 80 mg/ (Sodium Chloride) 100 mls @ 10 mls/hr IV Q10H [facility] Last Admin: 09/19/21 11:14 Dose: Not Given Documented by: Calcium Gluconate 2 gm/ Sodium (Chloride) 120 mls @ 100 mls/hr IV ONETIME ONE Stop: 09/17/21 16:56 Last Admin: 09/17/21 16:15 Dose: 100 mls/hr Documented by: Sodium Chloride (Normal Saline) 1,000 mls @ 125 mls/hr IV ASDIRECTED [facility] Ciprofloxacin/Dextrose 400 mg/ (Premix) 200 mls @ 200 mls/hr IV Q12H [facility] Last Admin: 09/18/21 04:58 Dose: 200 mls/hr Documented by: Metronidazole 500 mg/ Premix 100 mls @ 100 mls/hr IV Q8H [facility] Last Admin: 09/20/21 02:31 Dose: 100 mls/hr Documented by: Multivitamins/Minerals 10 ml/Thiamine HCl 100 mg/ Folic Acid 1 mg/ Magnesium Sulfate 2 gm/ Sodium Chloride 1,015.2 mls @ 100 mls/hr IV ONETIME ONE Stop: 09/18/21 02:57 Last Admin: 09/17/21 18:17 Dose: Not Given Documented by: Potassium Chloride 40 meq/ (Premix) 100 mls @ 25 mls/hr IV ONETIME ONE Stop: 09/18/21 00:01 Last Admin: 09/19/21 11:40 Dose: Not Given Documented by: Potassium Chloride 20 meq/ (Premix) 0 mls @ 50 mls/hr IV Q2H [facility] Stop: 09/17/21 23:01 Last Admin: 09/17/21 23:13 Dose: 50 mls/hr Documented by: Potassium Chloride 20 meq/Lidocaine HCl 2 ml/ Sodium Chloride 112 mls @ 56 mls/hr IV Q2H [facility] Stop: 09/18/21 11:14 Last Admin: 09/18/21 09:58 Dose: 56 mls/hr Documented by: Magnesium Sulfate 2 gm/ Premix 50 mls @ 25 mls/hr IV Q6H [facility] Stop: 09/18/21 22:59 Last Admin: 09/18/21 20:57 Dose: 25 mls/hr Documented by: Ceftriaxone Sodium 1 gm/ (Sodium Chloride) 50 mls @ 100 mls/hr IV Q24H [facility] Last Admin: 09/19/21 14:33 Dose: 100 mls/hr Documented by: Lidocaine HCl (Lidocaine 1% 5 Ml Sdv) 5 ml INJECT ONETIME ONE Stop: 09/17/21 20:59 Last Admin: 09/17/21 21:40 Dose: 5 ml Documented by: Lorazepam (Lorazepam 2 Mg/Ml Sdv) 0 mg IV ASDIRECTED JODIE; Protocol Lorazepam (Lorazepam 1 Mg Tab) 0 mg PO ASDIRECTED [facility]ODIE; Protocol Last Admin: 09/20/21 08:16 Dose: 1 mg Documented by: Midazolam HCl (Midazolam 1 Mg/Ml 2 Ml Sdv) Confirm Administered Dose 2 mg .ROUTE .STK-MED ONE Stop: 09/18/21 07:19 Octreotide Acetate (Octreotide 200 Mcg/Ml 5 Ml Mdv) Confirm Administered Dose 1,000 mcg .ROUTE .STK-MED ONE Stop: 09/17/21 03:33 Last Admin: 09/17/21 05:57 Dose: Not Given Documented by: Pantoprazole Sodium (Pantoprazole 40 Mg Vial) Confirm Administered Dose 80 mg .ROUTE .STK-MED ONE Stop: 09/17/21 03:32 Last Admin: 09/17/21 05:57 Dose: Not Given Documented by: Potassium Chloride (Potassium Chloride 20 Meq Tab.Er) 40 meq PO ONETIME ONE Stop: 09/17/21 20:02 Last Admin: 09/17/21 21:40 Dose: 40 meq Documented by: Potassium Chloride (Potassium Chloride 20 Meq Tab.Er) 40 meq PO ONETIME ONE Stop: 09/18/21 08:01 Last Admin: 09/18/21 09:10 Dose: 40 meq Documented by: Potassium Chloride (Potassium Chloride 20 Meq Tab.Er) 40 meq PO ONETIME ONE Stop: 09/18/21 13:01 Last Admin: 09/18/21 13:27 Dose: 40 meq Documented by: Potassium Chloride (Potassium Chloride 20 Meq Tab.Er) 40 meq PO ONETIME ONE Stop: 09/18/21 18:47 Last Admin: 09/18/21 19:49 Dose: 40 meq Documented by: Potassium Chloride (Potassium Chloride 20 Meq Tab.Er) 40 meq PO BID [facility] Stop: 09/20/21 21:01 Last Admin: 09/20/21 20:36 Dose: 40 meq Documented by: Propofol (Propofol 200 Mg/20 Ml Sdv) Confirm Administered Dose 200 mg .ROUTE .STK-MED ONE Stop: 09/18/21 07:19 Propofol (Propofol 200 Mg/20 Ml Sdv) Confirm Administered Dose 200 mg .ROUTE .STK-MED ONE Stop: 09/18/21 07:56 Sodium Chloride (Sodium Chloride 0.9% 10 Ml Syringe) 10 ml FLUSH ASDIRECTED PRN PRN Reason: Keep Vein Open Last Admin: 09/17/21 02:17 Dose: 10 ml Documented by: - Exam Quality Assessment: No: Supplemental Oxygen General: Alert, Oriented, Cooperative, No Acute Distress Lungs: Normal Respiratory Effort GI/Abdominal Exam: Soft, No Distention Extremities: No Pedal Edema Skin: Warm, Dry Psy/Mental Status: Alert, Normal Affect - Patient Data Lab Results Last 24 hrs: Laboratory Results - last 24 hr 09/21/21 Range/Units 04:30 Sodium 133 L (140-148) mmol/L Potassium 4.4 (3.6-5.2) mmol/L Chloride 98 L (100-108) mmol/L Carbon Dioxide 25 (21-32) mmol/L Anion Gap 14.4 H (5.0-14.0) mmol/L BUN 8 D (7-18) mg/dL Creatinine 0.4 L (0.8-1.3) mg/dL Est Cr Clr Drug Dosing 157.93 mL/min Estimated GFR (MDRD) > 60 (>60) Glucose 105 (74-106) mg/dL Calcium 8.4 L (8.5-10.1) mg/dL Total Bilirubin 1.0 (0.2-1.0) mg/dL AST 228 H (15-37) U/L ALT 137 H (12-78) U/L Alkaline Phosphatase 321 H (46-116) U/L Total Protein 5.7 L (6.4-8.2) g/dL Albumin 2.8 L (3.4-5.0) g/dL Globulin 2.9 (2.3-3.5) g/dL Albumin/Globulin Ratio 1.0 L (1.2-2.2) Result Diagrams: 09/20/21 05:30 09/21/21 04:30 Song Results Last 24 hrs: Microbiology 09/16/21 20:25 Aerobic Blood Culture - Preliminary Blood - Arm, Left NO GROWTH AFTER 4 DAYS Anaerobic Blood Culture - Preliminary NO GROWTH AFTER 4 DAYS 09/16/21 21:45 Aerobic Blood Culture - Preliminary Blood - Arterial Line - Abg NO GROWTH AFTER 4 DAYS Anaerobic Blood Culture - Preliminary NO GROWTH AFTER 4 DAYS Sepsis Event Note - Evaluation Sepsis Screening Result: No Definite Risk - Focused Exam Vital Signs: Vital Signs Temp Pulse Resp BP Pulse Ox 09/21/21 13:09 36.4 C 134 H 16 119/71 99 09/21/21 08:45 36.5 C 114 H 16 101/81 96 09/21/21 06:58 102 H 09/21/21 04:00 36.9 C 100 16 108/63 98 - Problem List Review Problem List Initiated/Reviewed/Updated: Yes - My Orders Last 24 Hours: My Active Orders 09/21/21 15:00 Albuterol [Ventolin HFA] 2 gm INH QIDRT - Plan Plan:: ASSESSMENT AND PLAN - UPPER GI HEMORRHAGE-esophageal ulcers noted on EGD likely source of recent bleeding. He was also noted to have esophageal varices, mild gastritis, and mild duodenitis. No recurrence of bleeding. -Regular diet -Protonix 40 mg p.o. twice daily -Transfuse as needed if hemoglobin less than 7 ACUTE BLOOD LOSS ANEMIA-secondary to GI bleed. Hemoglobin stable. -Management as above HISTORY OF ALCOHOL ABUSE-longstanding history of alcohol intake. No interest in complete cessation. He has been through treatment in the past. Alcohol withdrawal has resolved. Still quite weak but otherwise doing fine. -Discontinue alcohol withdrawal protocol -Encourage cessation and offer outpatient resources as available -Physical therapy SIGMOID COLITIS-evidence of colon inflammation identified on CT scan. Exam is benign and he denies symptoms of abdominal pain. Diarrhea has resolved. -Continue Augmentin and metronidazole today, anticipate stopping tomorrow ALCOHOLIC HEPATITIS-levels have normalized. -Alcohol cessation as discussed above HYPOCALCEMIA-improved following calcium replacement. -Follow-up calcium level in a.m. HYPOKALEMIA-improving with supplementation. -Recheck in the morning TOBACCO DEPENDENCE-no interest in quitting. -Encourage cessation MAINTENANCE ISSUES -DVT prophylaxis; SCUDs, hold on anticoagulation with evidence of recent bleedin g -GI prophylaxis; Protonix as above -Banks catheter; not indicated -Nutrition; regular diet DISPOSITION-anticipate discharge to home after the hospital stay. He is quite weak but otherwise doing okay and hopefully will be ready for discharge in a day or 2. Shekhar Collazo MD
[2021-09-22] MEDS: metroNIDAZOLE 250 MG Tab PO SCH ×2 (00:21→09:11)
[2021-09-22] MEDS: Pantoprazole 40 MG Tab.CR PO SCH (07:20)
[2021-09-22] MEDS: Albuterol 8 GM Inhaler INH SCH ×2 (07:34→10:53)
[2021-09-22] MEDS: Cyanocobalamin (Vitamin B12) 1,000 MCG Tab PO SCH (09:10)
[2021-09-22] MEDS: Metoprolol Tartrate 25 MG Tab PO SCH (09:10)
[2021-09-22] MEDS: Magnesium Oxide 400 MG Tab PO SCH (09:10)
[2021-09-22] MEDS: Tamsulosin 0.4 MG Cap.ER PO SCH (09:11)
[2021-09-22] MEDS: Thiamine 100 MG Tab PO SCH (09:11)
[2021-09-22] MEDS: Folic Acid 1 MG Tab PO SCH (09:11)
[2021-09-22] MEDS: Nicotine 21 MG/24 Hr Patch TRDERM SCH (09:12)
[2021-09-22] MEDS: Amoxicillin/Clavulanate K 875-125 MG Tab PO SCH (09:20)
[2021-09-22 11:24] VITALS: BP 142/73; PULSE 106
--- NOTE | 2021-09-22 12:22 | PCM.DCSUM1 ---
Discharge Summary - Hospital Course Brief History: 56-year-old male with history of alcohol dependence and tobacco dependence who presented with hematemesis and weakness. He was admitted for management of an acute upper gastrointestinal hemorrhage. Diagnosis: Stroke: No - Discharge Data Discharge Date: 09/22/21 Discharge Disposition: Home, Self-Care 01 Condition: Fair - Referral to Home Health Primary Care Physician: PCP None - Discharge Diagnosis/Problem(s) (1) Acute upper gastrointestinal hemorrhage SNOMED Code(s): 78636164 ICD Code: K92.2 - GASTROINTESTINAL HEMORRHAGE, UNSPECIFIED Status: Acute (2) Anemia due to blood loss, acute SNOMED Code(s): 271200704 ICD Code: D62 - ACUTE POSTHEMORRHAGIC ANEMIA Status: Acute (3) Esophageal varices with bleeding SNOMED Code(s): 48421875, 40970101 ICD Code: I85.01 - ESOPHAGEAL VARICES WITH BLEEDING Status: Acute Qualifiers: Esophageal varices type: secondary Qualified Code(s): I85.11 - Secondary esophageal varices with bleeding (4) Alcoholic hepatitis SNOMED Code(s): 566136408 ICD Code: K70.10 - ALCOHOLIC HEPATITIS WITHOUT ASCITES Status: Acute Qualifiers: Ascites presence: unspecified Qualified Code(s): K70.10 - Alcoholic hepatitis without ascites (5) Alcohol dependence SNOMED Code(s): 79881241 ICD Code: F10.20 - ALCOHOL DEPENDENCE, UNCOMPLICATED Status: Chronic Qualifiers: Substance use status: in withdrawal Complication of substance-induced condition: with delirium Qualified Code(s): F10.231 - Alcohol dependence with withdrawal delirium (6) Tobacco dependence SNOMED Code(s): 90215785 ICD Code: F17.200 - NICOTINE DEPENDENCE, UNSPECIFIED, UNCOMPLICATED Status: Chronic - Patient Summary/Data Consults: Consultations 09/17/21 16:48 Consult to Physician [CONS] Routine Consulting Provider: Shan Cline Courtesy Call Completed to Consulting Physician: Yes Reason for Consult: GI bleed, EGD in a.m. 09/20/21 09:31 PT Evaluation and Treatment [CONS] Routine Please Evaluate and Treat. PT Reason for Consult: Strengthening This query below is only for informational purposes and is not editable. Admission Diagnosis/Problem: Anemia Hospital Course: Km presented to the emergency room with progressive weakness and fatigue as well as recent hematemesis and melena. He has a longstanding history of heavy alcohol use. About 5 days prior to presentation he had become so weak and so sick that he was unable to keep drinking or smoking. Work-up in the emergency room revealed significant anion gap metabolic acidosis as well as anemia thought secondary to an acute upper GI bleed. He also had hypokalemia and hypokalemia. CT scan of the abdomen and pelvis suggested sigmoid colitis. Antibiotics were initiated to cover colitis. Patient had had diarrhea prior to presentation. He was admitted to the hospital for further management. He did require transfusion of 2 units of red blood cells after his hemoglobin dropped down to 6.4. He was treated with aggressive electrolyte supplementation including potassium, magnesium and calcium. He was taken to the operating room for upper endoscopy which did reveal mild esophageal varices and ulcers overlying a couple of the varices. This was thought to be his bleeding source. There is no evidence for active bleeding. Patient has been treated with a proton pump inhibitor and there is been no more bleeding during the hospital stay. His hemoglobin has been stable since the initial blood transfusion. He did display evidence for alcoholic hepatitis with mild to moderate elevation of his bilirubin and AST and ALT. These numbers have all improved throughout the course of the hospital stay and have essentially normalized other than mild elevation of the AST and ALT. He did have a CT of the abdomen and pelvis in the emergency room and this did not show any evidence for cirrhosis but did suggest a fatty liver. Patient did experience mild to moderate alcohol withdrawal with hypoactive delirium. This has resolved. He is quite weak and emaciated but has been making progress with physical therapy and with dietary supplements. He has been up and walking around. He seems stable and safe on his feet at this time. He has no diarrhea or abdominal pain and his antibiotics for colitis have been discontinued. His electrolytes have improved with supplementation. We had several discussions about the importance of complete cessation from alcohol as well as discussions about tobacco cessation. At this point he is not all that interested in quitting drinking or smoking. He is interested in trying to cut down on his drinking. We did discuss potential adverse effects of ongoing drinking including liver failure and . We discussed the risks of ongoing tobacco use including increasing risk for vascular disease and cancer. He would like to work on the alcohol first and may consider working on the smoking later. He tells me that he receives pleasure from both drinking and smoking and is not all that interested in quitting either of these habits. We did offer him home care but he was not interested. He has early follow-up with primary care. He declined referral to mental health provider for help with abstaining from alcohol and tobacco. - Patient Instructions Diet: Regular Diet as Tolerated Activity: As Tolerated Showering/Bathing: May Shower Other/Special Instructions: 1. You were in the hospital for management of an acute upper gastrointestinal hemorrhage complicated by anemia due to blood loss. Your condition has been improving with therapies provided here in the hospital. Upper endoscopy revealed ulcerations over esophageal varices that were likely the source of the bleeding. We have been treating you with an acid blocking medication to help allow these ulcers to heal. We also started a blood pressure medication (metoprolol succinate) to help keep your blood pressure at a safe level and reduce the risk of additional bleeding in the future. Your hospital stay was complicated by alcoholic hepatitis which has resolved as well as alcohol withdrawal which has resolved. 2. Continue your usual home medications as previously prescribed. 3. I strongly recommend complete abstinence from alcohol. You had evidence for inflammation of your liver related to alcohol use which has improved. There is some damage to your liver already and any additional drinking will cause further damage and potentially liver failure and . 4. I strongly recommend abstinence from cigarette smoking as well. Cigarette smoking can increase your risk for heart disease, stroke as well as a variety of cancers. I have included some information to help with steps to quit smoking. If you have additional questions or desire additional resources you could talk to Dr. Anderson at your follow-up appointment. I did also provide Nicotrol inhalers to help reduce your craving for cigarettes. - Discharge Plan *PRESCRIPTION DRUG MONITORING PROGRAM REVIEWED*: Not Applicable *COPY OF PRESCRIPTION DRUG MONITORING REPORT IN PATIENT NANCY: Not Applicable Prescriptions/Med Rec: Metoprolol Succinate 50 mg PO DAILY #30 tab.er.24h Nicotine [Nicotrol] 10 mg IH Q2H PRN #1 box PRN Reason: nicotine craving Home Medications: Home Meds Pantoprazole [ProTONIX] 40 mg PO DAILY #30 tab.cr 10/20/16 [Rx] Albuterol [Ventolin HFA] 2 puff INH BID 06/07/18 [History] Ibuprofen 400 mg PO DAILY 06/07/18 [History] Tamsulosin [Flomax] 0.4 mg PO DAILY 06/07/18 [History] Metoprolol Succinate 50 mg PO DAILY #30 tab.er.24h 09/22/21 [Rx] Nicotine [Nicotrol] 10 mg IH Q2H PRN #1 box 09/22/21 [Rx] Patient Handouts: Fall Prevention in the Home, Adult, [id number], Alcohol Abuse and Dependence Information, Adult, Steps to Quit Smoking Referrals: Carmine Anderson MD [Physician] - 09/22/21 12:14 pm (1-2 weeks - f/u hospital stay for GI bleed, alcohol dependence ) - Discharge Summary/Plan Comment DC Time >30 min.: Yes Total # of Minutes for Discharge Time: 40-extensive counseling about alcohol and tobacco cessation - Patient Data Vitals - Most Recent: Last Vital Signs Temp 36.5 C 09/22/21 11:23 Pulse 106 H 09/22/21 11:23 Resp 18 09/22/21 11:23 BP 142/73 H 09/22/21 11:23 Pulse Ox 100 09/22/21 11:23 Weight - Most Recent: 52.889 kg I&O - Last 24 hours: Intake & Output 09/21/21 09/22/21 09/22/21 22:59 06:59 14:59 Intake Total 600 400 500 Output Total 100 125 Balance 600 300 375 TAMIKA Results - Last 24 hrs: Microbiology 09/16/21 21:45 Aerobic Blood Culture - Final Blood - Arterial Line - Abg NO GROWTH AFTER 5 DAYS Anaerobic Blood Culture - Final NO GROWTH AFTER 5 DAYS 09/16/21 20:25 Aerobic Blood Culture - Final Blood - Arm, Left NO GROWTH AFTER 5 DAYS Anaerobic Blood Culture - Final NO GROWTH AFTER 5 DAYS Med Orders - Current: Current Medications Acetaminophen (Acetaminophen 325 Mg Tab) 650 mg PO Q4H PRN PRN Reason: Pain (Mild 1-3)/fever Albuterol (Albuterol 0.083% 2.5 Mg/3 Ml Neb Soln) 2.5 mg NEB Q4H PRN PRN Reason: Dyspnea Last Admin: 09/17/21 19:39 Dose: 2.5 mg Documented by: Albuterol (Albuterol 8 Gm Inhaler) 2 gm INH QIDRT JODIE Last Admin: 09/22/21 10:53 Dose: 2 puff Documented by: Amoxicillin/Clavulanate Potassium (Amoxicillin/Clavulanate K 875-125 Mg Tab) 1 tab PO BID [facility] Last Admin: 09/22/21 09:20 Dose: 1 tab Documented by: Cyanocobalamin (Cyanocobalamin (Vitamin B12) 1,000 Mcg Tab) 1,000 mcg PO DAILY [facility] Last Admin: 09/22/21 09:10 Dose: 1,000 mcg Documented by: Folic Acid (Folic Acid 1 Mg Tab) 1 mg PO DAILY [facility] Last Admin: 09/22/21 09:11 Dose: 1 mg Documented by: Lorazepam (Lorazepam 0.5 Mg Tab) 0.5 mg PO Q4H PRN PRN Reason: Anxiety Last Admin: 09/21/21 21:01 Dose: 0.5 mg Documented by: Magnesium Oxide (Magnesium Oxide 400 Mg Tab) 400 mg PO BID [facility] Last Admin: 09/22/21 09:10 Dose: 400 mg Documented by: Metoprolol Tartrate (Metoprolol Tartrate 25 Mg Tab) 25 mg PO Q12H [facility] Last Admin: 09/22/21 09:10 Dose: 25 mg Documented by: Metronidazole (Metronidazole 250 Mg Tab) 500 mg PO Q8H [facility] Last Admin: 09/22/21 09:11 Dose: 500 mg Documented by: Nicotine (Nicotine 21 Mg/24 Hr Patch) 21 mg TRDERM DAILY [facility] Last Admin: 09/22/21 09:12 Dose: 21 mg Documented by: Ondansetron HCl (Ondansetron 4 Mg/2 Ml Sdv) 4 mg IV Q4H PRN PRN Reason: Nausea/Vomiting Pantoprazole Sodium (Pantoprazole 40 Mg Tab.Cr) 40 mg PO BIDAC [facility] Last Admin: 09/22/21 07:20 Dose: 40 mg Documented by: Sodium Chloride (Sodium Chloride 0.9% 10 Ml Syringe) 10 ml FLUSH ASDIRECTED PRN PRN Reason: Keep Vein Open Tamsulosin HCl (Tamsulosin 0.4 Mg Cap.Er) 0.4 mg PO DAILY [facility] Last Admin: 09/22/21 09:11 Dose: 0.4 mg Documented by: Thiamine HCl (Thiamine 100 Mg Tab) 100 mg PO DAILY [facility] Last Admin: 09/22/21 09:11 Dose: 100 mg Documented by: Discontinued Medications Adenosine (Adenosine 6 Mg/2 Ml Sdv) 12 mg IVPUSH NOW ONE Stop: 09/16/21 20:22 Last Admin: 09/16/21 20:30 Dose: 12 mg Documented by: Adenosine (Adenosine 6 Mg/2 Ml Sdv) Confirm Administered Dose 12 mg .ROUTE .STK- MED ONE Stop: 09/16/21 20:22 Last Admin: 09/17/21 08:08 Dose: Not Given Documented by: Albuterol (Albuterol 8 Gm Inhaler) 0 gm INH BID [facility] Last Admin: 09/18/21 01:50 Dose: Not Given Documented by: Albuterol (Albuterol 8 Gm Inhaler) 0 gm INH BIDRT [facility] Last Admin: 09/21/21 06:58 Dose: 2 inh Documented by: Albuterol/Ipratropium (Albuterol/Ipratropium 3.0-0.5 Mg/3 Ml Neb Soln) 3 ml NEB QIDRT [facility] Last Admin: 09/21/21 10:44 Dose: 3 ml Documented by: Cefepime HCl (Cefepime 1 Gm Vial) Confirm Administered Dose 2 gm .ROUTE .STK-MED ONE Stop: 09/16/21 22:04 Last Admin: 09/16/21 22:14 Dose: Not Given Documented by: Fentanyl (Fentanyl 100 Mcg/2 Ml Sdv) Confirm Administered Dose 100 mcg .ROUTE .STK-MED ONE Stop: 09/18/21 07:19 Sodium Chloride (Normal Saline) 1,000 mls @ 999 mls/hr IV ASDIRECTED [facility] Last Admin: 09/16/21 20:39 Dose: 999 mls/hr Documented by: Esmolol HCl (Esmolol Hcl In Sterile Water 2,500 Mg/250 Ml) 250 mls @ 23.133 mls/hr IV TITRATE [facility]; Protocol Last Titration: 09/17/21 04:02 Dose: 0 mcg/kg/min, 0 mls/hr Documented by: Sodium Chloride (Normal Saline) 1,000 mls @ 999 mls/hr IV ASDIRECTED [facility] Last Admin: 09/16/21 22:01 Dose: 999 mls/hr Documented by: Cefepime HCl 2 gm/ Sodium (Chloride) 50 mls @ 100 mls/hr IV ONETIME ONE Stop: 09/16/21 22:19 Last Admin: 09/16/21 22:07 Dose: 100 mls/hr Documented by: Sodium Chloride (Normal Saline) Confirm Administered Dose 100 mls @ as directed .ROUTE .STK-MED ONE Stop: 09/16/21 22:07 Last Admin: 09/16/21 22:14 Dose: Not Given Documented by: Sodium Chloride (Normal Saline) 1,000 mls @ 125 mls/hr IV ASDIRECTED [facility] Last Admin: 09/17/21 07:40 Dose: 125 mls/hr Documented by: Octreotide Acetate 500 mcg/ (Sodium Chloride) 500 mls @ 50 mls/hr IV Q10H [facility] Last Admin: 09/19/21 11:39 Dose: Not Given Documented by: Pantoprazole Sodium 80 mg/ (Sodium Chloride) 100 mls @ 10 mls/hr IV Q10H [facility] Last Admin: 09/19/21 11:37 Dose: Not Given Documented by: Sodium Chloride (Normal Saline) Confirm Administered Dose 100 mls @ as directed .ROUTE .[facility] ONE Stop: 09/17/21 03:32 Last Admin: 09/17/21 05:57 Dose: Not Given Documented by: Multivitamins/Minerals 10 ml/Thiamine HCl 100 mg/ Folic Acid 1 mg/ Magnesium Sulfate 3 gm/ Sodium Chloride 1,017.2 mls @ 500 mls/hr IV ASDIRECTED ONE Stop: 09/17/21 10:02 Last Admin: 09/17/21 08:11 Dose: 500 mls/hr Documented by: Octreotide Acetate 500 mcg/ (Sodium Chloride) 500 mls @ 50 mls/hr IV Q10H [facility] Last Admin: 09/19/21 11:14 Dose: Not Given Documented by: Pantoprazole Sodium 80 mg/ (Sodium Chloride) 100 mls @ 10 mls/hr IV Q10H [facility] Last Admin: 09/19/21 11:14 Dose: Not Given Documented by: Calcium Gluconate 2 gm/ Sodium (Chloride) 120 mls @ 100 mls/hr IV ONETIME ONE Stop: 09/17/21 16:56 Last Admin: 09/17/21 16:15 Dose: 100 mls/hr Documented by: Sodium Chloride (Normal Saline) 1,000 mls @ 125 mls/hr IV ASDIRECTED [facility] Ciprofloxacin/Dextrose 400 mg/ (Premix) 200 mls @ 200 mls/hr IV Q12H [facility] Last Admin: 09/18/21 04:58 Dose: 200 mls/hr Documented by: Metronidazole 500 mg/ Premix 100 mls @ 100 mls/hr IV Q8H JODIE Last Admin: 09/20/21 02:31 Dose: 100 mls/hr Documented by: Multivitamins/Minerals 10 ml/Thiamine HCl 100 mg/ Folic Acid 1 mg/ Magnesium Sulfate 2 gm/ Sodium Chloride 1,015.2 mls @ 100 mls/hr IV ONETIME ONE Stop: 09/18/21 02:57 Last Admin: 09/17/21 18:17 Dose: Not Given Documented by: Potassium Chloride 40 meq/ (Premix) 100 mls @ 25 mls/hr IV ONETIME ONE Stop: 09/18/21 00:01 Last Admin: 09/19/21 11:40 Dose: Not Given Documented by: Potassium Chloride 20 meq/ (Premix) 0 mls @ 50 mls/hr IV Q2H JODIE Stop: 09/17/21 23:01 Last Admin: 09/17/21 23:13 Dose: 50 mls/hr Documented by: Potassium Chloride 20 meq/Lidocaine HCl 2 ml/ Sodium Chloride 112 mls @ 56 mls/hr IV Q2H JODIE Stop: 09/18/21 11:14 Last Admin: 09/18/21 09:58 Dose: 56 mls/hr Documented by: Magnesium Sulfate 2 gm/ Premix 50 mls @ 25 mls/hr IV Q6H JODIE Stop: 09/18/21 22:59 Last Admin: 09/18/21 20:57 Dose: 25 mls/hr Documented by: Ceftriaxone Sodium 1 gm/ (Sodium Chloride) 50 mls @ 100 mls/hr IV Q24H [facility] Last Admin: 09/19/21 14:33 Dose: 100 mls/hr Documented by: Lidocaine HCl (Lidocaine 1% 5 Ml Sdv) 5 ml INJECT ONETIME ONE Stop: 09/17/21 20:59 Last Admin: 09/17/21 21:40 Dose: 5 ml Documented by: Lorazepam (Lorazepam 2 Mg/Ml Sdv) 0 mg IV ASDIRECTED JODIE; Protocol Lorazepam (Lorazepam 1 Mg Tab) 0 mg PO ASDIRECTED JODIE; Protocol Last Admin: 09/20/21 08:16 Dose: 1 mg Documented by: Midazolam HCl (Midazolam 1 Mg/Ml 2 Ml Sdv) Confirm Administered Dose 2 mg .ROUTE .STK-MED ONE Stop: 09/18/21 07:19 Octreotide Acetate (Octreotide 200 Mcg/Ml 5 Ml Mdv) Confirm Administered Dose 1,000 mcg .ROUTE .STK-MED ONE Stop: 09/17/21 03:33 Last Admin: 09/17/21 05:57 Dose: Not Given Documented by: Pantoprazole Sodium (Pantoprazole 40 Mg Vial) Confirm Administered Dose 80 mg .ROUTE .STK-MED ONE Stop: 09/17/21 03:32 Last Admin: 09/17/21 05:57 Dose: Not Given Documented by: Potassium Chloride (Potassium Chloride 20 Meq Tab.Er) 40 meq PO ONETIME ONE Stop: 09/17/21 20:02 Last Admin: 09/17/21 21:40 Dose: 40 meq Documented by: Potassium Chloride (Potassium Chloride 20 Meq Tab.Er) 40 meq PO ONETIME ONE Stop: 09/18/21 08:01 Last Admin: 09/18/21 09:10 Dose: 40 meq Documented by: Potassium Chloride (Potassium Chloride 20 Meq Tab.Er) 40 meq PO ONETIME ONE Stop: 09/18/21 13:01 Last Admin: 09/18/21 13:27 Dose: 40 meq Documented by: Potassium Chloride (Potassium Chloride 20 Meq Tab.Er) 40 meq PO ONETIME ONE Stop: 09/18/21 18:47 Last Admin: 09/18/21 19:49 Dose: 40 meq Documented by: Potassium Chloride (Potassium Chloride 20 Meq Tab.Er) 40 meq PO BID JODIE Stop: 09/20/21 21:01 Last Admin: 09/20/21 20:36 Dose: 40 meq Documented by: Propofol (Propofol 200 Mg/20 Ml Sdv) Confirm Administered Dose 200 mg .ROUTE .STK-MED ONE Stop: 09/18/21 07:19 Propofol (Propofol 200 Mg/20 Ml Sdv) Confirm Administered Dose 200 mg .ROUTE .STK-MED ONE Stop: 09/18/21 07:56 Sodium Chloride (Sodium Chloride 0.9% 10 Ml Syringe) 10 ml FLUSH ASDIRECTED PRN PRN Reason: Keep Vein Open Last Admin: 09/17/21 02:17 Dose: 10 ml Documented by: *Q Meaningful Use (DIS) - VTE *Q VTE Pharmacological Contraindications *Q: Active Hemorrhage
== END 2021-09-22 13:05 | disposition home or self-care (01) | DRG 432 ==
LOC: JP.ED 20:20 → JP.ICU 09-17 15:48 → JP.MS 09-21 08:57
PROVIDERS: ADMIT Hospitalist; ATTEND Internal Medicine
PROC: 30233N1 Transfusion of Nonautologous Red Blood Cells into Peripheral Vein, Percutaneous Approach (ICD-10-PCS; 2021-09-17)
PROC: 0DB68ZX Excision of Stomach, Via Natural or Artificial Opening Endoscopic, Diagnostic (ICD-10-PCS; principal; 2021-09-18)
DX: K70.10 Alcoholic hepatitis without ascites (principal); I85.11 Secondary esophageal varices with bleeding; K22.11 Ulcer of esophagus with bleeding; D62 Acute posthemorrhagic anemia; F10.231 Alcohol dependence with withdrawal delirium; F10.288 Alcohol dependence with other alcohol-induced disorder; E87.2 Acidosis; F17.210 Nicotine dependence, cigarettes, uncomplicated; J44.9 Chronic obstructive pulmonary disease, unspecified; K76.0 Fatty (change of) liver, not elsewhere classified; K21.9 Gastro-esophageal reflux disease without esophagitis; K52.9 Noninfective gastroenteritis and colitis, unspecified; N40.0 Benign prostatic hyperplasia without lower urinary tract symptoms; E86.0 Dehydration; E83.51 Hypocalcemia; E87.6 Hypokalemia; K29.70 Gastritis, unspecified, without bleeding; K29.80 Duodenitis without bleeding; Z88.5 Allergy status to narcotic agent; Z79.899 Other long term (current) drug therapy
CPT/HCPCS: 36415; 36430; 36600; 74176; 80048; 80053; 80143; 80179; 80305-QW; 80307; 81001; 82009; 82272; 82607; 82728; 82803; 83605; 83690; 83735; 84132; 84484; 85018; 85025; 85027; 85610; 85730; 86850; 86900; 86901; 86920; 86922; 87040; 87081; 93005; 94640; 97110-GP; 97162-GP; 97530-GP; 99223; 99232; 99233; 99239; A9270-GY; C9113; J0153; J0610; J0692; J0696; J0744; J2250; J2354-JA; J2704; J3010; J3411; J3475; J3480; J3490; J7030; J7040; J7620-GY; P9016; U0002